=== PATIENT | female | born 1960 | race Caucasian/White ===

== ENCOUNTER 2017-10-03 09:01 | Emergency (ER) | payer OTHER ==
[~2017-10-03] VITALS: Ht 165.1 cm; Wt 45.4 kg
[~2017-10-03 09:01] MED LIST: ERYT500 PO; FLUSAL2505 INH; HYDACE5 PO; HYDR1TAB94 PO; LEVFLO500 PO; LISINOPRIL PO; LORA.5 PO; LORA1 PO; LORA2 PO; LOSA25 PO; Lidocaine-Priloc5 GM TP; METO50 PO; NAPR250 PO; NAPR500 PO; Naprosyn500 MG PO; Norco 5-325 Ta1 EACH PO; ONDA8 PO; OXYACE5T PO; Omeprazole20 M1 PO; PROAIR RESPICL90 MCG INH; PROM25 PO; TAMO10; TUDORZA PRESS400 MCG INH
[2017-10-03 09:40] LABS: BASOPHILS ABSOLUTE AUTO 0.04 K/mm3 (0.00-0.23); BASOPHILS PERCENT AUTO 0 % (0-2); EOSINOPHILS ABSOLUTE AUTO 0.36 K/mm3 (0.00-0.68); EOSINOPHILS PERCENT AUTO 4 % (0-6); Hematocrit 42.3 % (33.0-51.0); Hemoglobin 13.4 g/dL (11.5-16.0); IMMATURE GRAN ABSOLUTE AUTO 0.04 K/mm3 (0.00-0.10); IMMATURE GRAN PERCENT AUTO 0 % (0-1); LYMPHOCYTES ABSOLUTE AUTO 3.64 K/mm3 (0.84-5.20); LYMPHOCYTES PERCENT AUTO 36 % (21-46); MONOCYTES ABSOLUTE AUTO 0.61 K/mm3 (0.16-1.47); MONOCYTES PERCENT AUTO 6 % (4-13); Mean Corpuscular HGB 30.9 pg (26.0-34.0); Mean Corpuscular HGB Conc 31.7 g/dL (31.5-36.5); Mean Corpuscular Volume 98 fL (80-100); NEUTROPHILS ABSOLUTE AUTO 5.47 K/mm3 (1.96-9.15); NEUTROPHILS PERCENT AUTO 54 % (41-73); Platelet Count 247 K/mm3 (150-400); RDW Standard Deviation 58.1 fL (35.1-46.3); Red Blood Cell Count 4.34 M/mm3 (3.80-5.20); White Blood Cell Count 10.16 K/mm3 (4.00-11.30)
[2017-10-03 10:03] LABS: Troponin I <0.015 ng/mL (0.000-0.040)
[2017-10-03 10:12] LABS: Alanine Aminotransfer (ALT/SGP 48 U/L (12-78); Albumin, Blood 3.1 g/dL (3.4-5.0); Albumin/Globulin Ratio 0.7 (0.8-1.8); Alk Phos 73 U/L (50-136); Anion Gap 6 mmol/L (6-16); Aspartate Aminotrans (AST/SGOT 36 U/L (12-37); Bilirubin, Total 0.4 mg/dL (0.1-1.0); Blood Urea Nitrogen 23 mg/dL (8-24); Bun/Creatinine Ratio 25.3 (12.0-20.0); CO2, Blood 26 mmol/L (21-32); Calcium, Blood 8.9 mg/dL (8.5-10.1); Chloride, Blood 107 mmol/L (98-108); Creatinine, Blood 0.91 mg/dL (0.40-1.00); Globulin, Blood 4.2 g/dL (2.2-4.0); Glomerular Filtration Rate >60 (60-); Glucose, Blood 163 mg/dL (70-99); Potassium, Blood 3.7 mmol/L (3.5-5.5); Sodium, Blood 139 mmol/L (136-145); Total Protein, Blood 7.3 g/dL (6.4-8.2)
[2017-10-03] MEDS ORDERED: METPRE4DP PO (11:27)
[2017-10-03] MEDS ORDERED: AZIT250 PO (11:27)
== END 2017-10-03 13:24 | disposition home or self-care (01) ==
LOC: ER 09:01
PROVIDERS: Emergency Medicine
DX: J44.1 Chronic obstructive pulmonary disease with (acute) exacerbation (principal); F41.9 Anxiety disorder, unspecified; C56.9 Malignant neoplasm of unspecified ovary; Z85.3 Personal history of malignant neoplasm of breast; Z88.1 Allergy status to other antibiotic agents; Z79.899 Other long term (current) drug therapy; I10 Essential (primary) hypertension; J44.9 Chronic obstructive pulmonary disease, unspecified; F17.200 Nicotine dependence, unspecified, uncomplicated
CPT/HCPCS: 71046; 80053; 83880; 84484; 85025; 93005; 93010; 94640; 96361; 96374; 96375; 99284; J1642; J2060; J2930; J7030

== ENCOUNTER 2017-10-08 00:44 | Inpatient (IN) | payer OTHER ==
[~2017-10-08] VITALS: Ht 162.6 cm; Wt 50.4 kg
[~2017-10-08 00:44] MED LIST changes: +AZIT250 PO; +METPRE4DP PO; -OXYACE5T PO; +Percocet 10-321 EACH PO
[2017-10-08 01:08] LABS: BASOPHILS ABSOLUTE AUTO 0.12 K/mm3 (0.00-0.23); BASOPHILS PERCENT AUTO 1 % (0-2); EOSINOPHILS ABSOLUTE AUTO 0.17 K/mm3 (0.00-0.68); EOSINOPHILS PERCENT AUTO 1 % (0-6); Hematocrit 47.5 % (33.0-51.0); Hemoglobin 14.3 g/dL (11.5-16.0); IMMATURE GRAN ABSOLUTE AUTO 0.13 K/mm3 (0.00-0.10); IMMATURE GRAN PERCENT AUTO 1 % (0-1); LYMPHOCYTES ABSOLUTE AUTO 10.72 K/mm3 (0.84-5.20); LYMPHOCYTES PERCENT AUTO 54 % (21-46); MONOCYTES ABSOLUTE AUTO 1.47 K/mm3 (0.16-1.47); MONOCYTES PERCENT AUTO 7 % (4-13); Mean Corpuscular HGB 31.2 pg (26.0-34.0); Mean Corpuscular HGB Conc 30.1 g/dL (31.5-36.5); Mean Corpuscular Volume 104 fL (80-100); Mean Platelet Volume 10.4 fL (9.1-12.4); NEUTROPHILS ABSOLUTE AUTO 7.24 K/mm3 (1.96-9.15); NEUTROPHILS PERCENT AUTO 36 % (41-73); Platelet Count 211 K/mm3 (150-400); RDW Coefficient Variation 16.1 % (11.7-14.2); RDW Standard Deviation 62.4 fL (35.1-46.3); Red Blood Cell Count 4.59 M/mm3 (3.80-5.20); White Blood Cell Count 19.85 K/mm3 (4.00-11.30)
[2017-10-08 01:14] LABS: Bicarbonate Venous 22.3 mmol/L (24.0-30.0); PCO2 Venous 56.3 mmHg (38-42); PO2 Venous 50.9 mmHg (38-42); pH Blood Venous 7.27 (7.34-7.37)
[2017-10-08 01:34] LABS: Albumin, Blood 3.1 g/dL (3.4-5.0); Albumin/Globulin Ratio 0.8 (0.8-1.8); Bilirubin, Total 0.4 mg/dL (0.1-1.0); Bun/Creatinine Ratio 26.5 (12.0-20.0); Calcium, Blood 8.7 mg/dL (8.5-10.1); Creatinine, Blood 1.02 mg/dL (0.40-1.00); Globulin, Blood 3.9 g/dL (2.2-4.0); Potassium, Blood 4.1 mmol/L (3.5-5.5); Troponin I 0.044 ng/mL (0.000-0.040)
[2017-10-08] MEDS ORDERED: BUDE6HFA INH (02:37)
[2017-10-08] MEDS ORDERED: FENT50TP TOP (05:54)
[2017-10-09 04:11] LABS: BASOPHILS ABSOLUTE AUTO 0.01 K/mm3 (0.00-0.23); BASOPHILS PERCENT AUTO 0 % (0-2); EOSINOPHILS PERCENT AUTO 0 % (0-6); Hematocrit 39.7 % (33.0-51.0); Hemoglobin 12.6 g/dL (11.5-16.0); IMMATURE GRAN ABSOLUTE AUTO 0.05 K/mm3 (0.00-0.10); IMMATURE GRAN PERCENT AUTO 0 % (0-1); LYMPHOCYTES ABSOLUTE AUTO 0.68 K/mm3 (0.84-5.20); LYMPHOCYTES PERCENT AUTO 6 % (21-46); MONOCYTES ABSOLUTE AUTO 0.37 K/mm3 (0.16-1.47); MONOCYTES PERCENT AUTO 3 % (4-13); Mean Corpuscular HGB 30.8 pg (26.0-34.0); Mean Corpuscular HGB Conc 31.7 g/dL (31.5-36.5); Mean Platelet Volume 10.7 fL (9.1-12.4); NEUTROPHILS ABSOLUTE AUTO 10.99 K/mm3 (1.96-9.15); NEUTROPHILS PERCENT AUTO 91 % (41-73); Platelet Count 209 K/mm3 (150-400); RDW Standard Deviation 57.5 fL (35.1-46.3); Red Blood Cell Count 4.09 M/mm3 (3.80-5.20)
[2017-10-09 04:12] LABS: Mean Corpuscular Volume 97 fL (80-100)
[2017-10-09 04:29] LABS: Anion Gap 7 mmol/L (6-16); Blood Urea Nitrogen 32 mg/dL (8-24); Bun/Creatinine Ratio 33.1 (12.0-20.0); CO2, Blood 31 mmol/L (21-32); Calcium, Blood 9.3 mg/dL (8.5-10.1); Chloride, Blood 102 mmol/L (98-108); Creatinine, Blood 0.97 mg/dL (0.40-1.00); Glomerular Filtration Rate >60 (60-); Glucose, Blood 181 mg/dL (70-99); Sodium, Blood 140 mmol/L (136-145)
[2017-10-10 04:14] LABS: BASOPHILS ABSOLUTE AUTO 0.01 K/mm3 (0.00-0.23); BASOPHILS PERCENT AUTO 0 % (0-2); EOSINOPHILS PERCENT AUTO 0 % (0-6); Hematocrit 39.4 % (33.0-51.0); Hemoglobin 12.6 g/dL (11.5-16.0); IMMATURE GRAN ABSOLUTE AUTO 0.07 K/mm3 (0.00-0.10); IMMATURE GRAN PERCENT AUTO 1 % (0-1); LYMPHOCYTES ABSOLUTE AUTO 0.73 K/mm3 (0.84-5.20); LYMPHOCYTES PERCENT AUTO 6 % (21-46); MONOCYTES ABSOLUTE AUTO 0.41 K/mm3 (0.16-1.47); MONOCYTES PERCENT AUTO 3 % (4-13); Mean Corpuscular HGB 30.8 pg (26.0-34.0); Mean Corpuscular Volume 96 fL (80-100); NEUTROPHILS ABSOLUTE AUTO 11.91 K/mm3 (1.96-9.15); NEUTROPHILS PERCENT AUTO 91 % (41-73); Platelet Count 219 K/mm3 (150-400); RDW Coefficient Variation 15.8 % (11.7-14.2); RDW Standard Deviation 55.9 fL (35.1-46.3); Red Blood Cell Count 4.09 M/mm3 (3.80-5.20); White Blood Cell Count 13.13 K/mm3 (4.00-11.30)
[2017-10-10 04:31] LABS: Anion Gap 6 mmol/L (6-16); Blood Urea Nitrogen 32 mg/dL (8-24); Bun/Creatinine Ratio 37.9 (12.0-20.0); CO2, Blood 31 mmol/L (21-32); Calcium, Blood 8.9 mg/dL (8.5-10.1); Chloride, Blood 102 mmol/L (98-108); Creatinine, Blood 0.84 mg/dL (0.40-1.00); Glomerular Filtration Rate >60 (60-); Glucose, Blood 127 mg/dL (70-99); Potassium, Blood 4.2 mmol/L (3.5-5.5); Sodium, Blood 139 mmol/L (136-145)
[2017-10-10] MEDS ORDERED: FURO40 PO (11:51)
[2017-10-10] MEDS ORDERED: PRED20 PO (11:51)
[2017-10-10] MEDS ORDERED: Aspirin EC81 MG PO (11:52)
[2017-10-10] MEDS ORDERED: ALBU3IS INH (11:52)
== END 2017-10-10 14:53 | disposition home or self-care (01) | DRG 280 ==
LOC: ER 00:44 → PCU 01:47
PROVIDERS: Emergency Medicine; Internal Medicine
DX: I13.0 Hypertensive heart and chronic kidney disease with heart failure and stage 1 through stage 4 chronic kidney disease, or unspecified chronic kidney disease (principal); I21.A1 Myocardial infarction type 2; I50.41 Acute combined systolic (congestive) and diastolic (congestive) heart failure; E43 Unspecified severe protein-calorie malnutrition; J96.21 Acute and chronic respiratory failure with hypoxia; J96.22 Acute and chronic respiratory failure with hypercapnia; Z68.1 Body mass index [BMI] 19.9 or less, adult; C56.9 Malignant neoplasm of unspecified ovary; C78.00 Secondary malignant neoplasm of unspecified lung; N18.1 Chronic kidney disease, stage 1; F17.210 Nicotine dependence, cigarettes, uncomplicated; D72.829 Elevated white blood cell count, unspecified; T38.0X5A Adverse effect of glucocorticoids and synthetic analogues, initial encounter; K76.1 Chronic passive congestion of liver; J44.9 Chronic obstructive pulmonary disease, unspecified
CPT/HCPCS: 36415; 71045; 80048; 80053; 82803; 83880; 84484; 85025; 93005; 93010; 93306; 94640; 94644; 94660; 94760; 94761; 99285; J1650; J1940; J2930

== ENCOUNTER 2018-06-15 23:40 | Inpatient (IN) | payer OTHER ==
[~2018-06-15] VITALS: Ht 162.6 cm; Wt 46.6 kg
[~2018-06-15 23:40] MED LIST changes: +ALBU3IS INH; +Aspirin EC81 MG PO; +BUDE6HFA INH; +FENT50TP TOP; +FURO40 PO; +ONDA4ODT MM; -ONDA8 PO; +PRED20 PO
[2018-06-16 00:04] LABS: PCO2 Arterial 82.9 mmHg (35-45); PO2 Arterial 438 mmHg (80-100); pH Blood Arterial 7.11 (7.35-7.45)
[2018-06-16 00:41] LABS: Calcium, Ionized (POC) 1.05 mmol/L (1.10-1.46); Chloride (POC) 100 mmol/L (98-108); Creatinine (POC) 1.1 mg/dL (0.6-1.0); Glucose (ISTAT POC) 366 mg/dL (70-99); Hemoglobin (POC) 15.6 g/dL (12.0-16.0); Potassium (POC) 3.9 mmol/L (3.5-5.5); Sodium (POC) 137 mmol/L (135-148); Total CO2 (POC) 26 mmol/L (21-32)
[2018-06-16 00:55] LABS: Hematocrit 46.4 % (33.0-51.0); Hemoglobin 14.3 g/dL (11.5-16.0); Mean Corpuscular HGB 30.6 pg (26.0-34.0); Mean Corpuscular HGB Conc 30.8 g/dL (31.5-36.5); Mean Corpuscular Volume 99 fL (80-100); Mean Platelet Volume 10.5 fL (9.1-12.4); Platelet Count 226 K/mm3 (150-400); RDW Coefficient Variation 13.8 % (11.7-14.2); RDW Standard Deviation 50.3 fL (35.1-46.3); Red Blood Cell Count 4.67 M/mm3 (3.80-5.20); White Blood Cell Count 19.31 K/mm3 (4.00-11.30)
[2018-06-16 01:24] LABS: Alanine Aminotransfer (ALT/SGP 23 U/L (12-78); Albumin, Blood 0.7 g/dL (3.4-5.0); Albumin/Globulin Ratio 0.6 (0.8-1.8); Alk Phos 30 U/L (50-136); Anion Gap 7 mmol/L (6-16); Aspartate Aminotrans (AST/SGOT 23 U/L (12-37); Bilirubin, Total <0.1 mg/dL (0.1-1.0); Blood Urea Nitrogen 11 mg/dL (8-24); Bun/Creatinine Ratio 25.2 (12.0-20.0); CO2, Blood 15 mmol/L (21-32); Chloride, Blood 131 mmol/L (98-108); Creatinine, Blood 0.44 mg/dL (0.40-1.00); Globulin, Blood 1.1 g/dL (2.2-4.0); Glomerular Filtration Rate >60 (60-); Glucose, Blood 138 mg/dL (70-99); Sodium, Blood 153 mmol/L (136-145); Total Protein, Blood 1.8 g/dL (6.4-8.2)
[2018-06-16 01:28] LABS: BAND PERCENT MAN 4 % (0-8); BASOPHILS ABSOLUTE MAN 0.19 K/mm3 (0.00-0.23); BASOPHILS PERCENT MAN 1 % (0-2); EOSINOPHILS ABSOLUTE MAN 0.38 K/mm3 (0.00-0.68); EOSINOPHILS PERCENT MAN 2 % (0-6); LYMPHOCYTES ABSOLUTE MAN 4.82 K/mm3 (0.84-5.20); LYMPHOCYTES PERCENT MAN 25 % (21-46); MONOCYTES ABSOLUTE MAN 0.57 K/mm3 (0.16-1.47); MONOCYTES PERCENT MAN 3 % (4-13); NEUTROPHILS ABSOLUTE MAN 13.32 K/mm3 (1.96-9.15); SEG NEUTROPHILS PERCENT MAN 65 % (41-73); TOTAL CELLS COUNTED 100
[2018-06-16 01:29] LABS: Calcium, Blood <5.0 mg/dL (8.5-10.1)
[2018-06-16 01:42] LABS: PCO2 Arterial 49.1 mmHg (35-45); PO2 Arterial 58.2 mmHg (80-100); pH Blood Arterial 7.32 (7.35-7.45)
[2018-06-16 02:54] LABS: Adenovirus Not Detected (NOT DETECT); Bordetella pertussis Not Detected (NOT DETECT); Chlamydophila pneumoniae Not Detected (NOT DETECT); Coronavirus 229E Not Detected (NOT DETECT); Coronavirus HKU1 Not Detected (NOT DETECT); Coronavirus NL63 Not Detected (NOT DETECT); Human Metapneumovirus Not Detected (NOT DETECT); Human Rhinovirus/Enterovirus Not Detected (NOT DETECT); Influenza A/2009-H1 Not Detected (NOT DETECT); Influenza A/H1 Not Detected (NOT DETECT); Influenza A/H3 Not Detected (NOT DETECT); Influenza B Not Detected (NOT DETECT); Mycoplasma pneumoniae Not Detected (NOT DETECT); Parainfluenza Virus 1 Not Detected (NOT DETECT); Parainfluenza Virus 2 Not Detected (NOT DETECT); Parainfluenza Virus 3 Not Detected (NOT DETECT); Parainfluenza Virus 4 Not Detected (NOT DETECT); Respiratory Syncytial Virus Not Detected (NOT DETECT)
[2018-06-16 04:35] LABS: Source, Urine Catheter
[2018-06-16 04:38] LABS: Appearance, Urine Hazy (Clear); Bilirubin, Urine Neg (Neg); Blood, Urine 2+ (Neg); Color, Urine Yellow (P-Yellow); Glucose Qualitative, Urine 3+ (Neg); Ketones, Urine Neg (Neg); Leukocyte Esterase, Urine Neg (Neg); Nitrite, Urine Neg (Neg); Protein, Urine 3+ (Neg); Urobilinogen, Urine NORM (Normal); pH, Urine 6.5 (5.0-8.0)
[2018-06-16 04:48] LABS: Coronavirus OC43 Detected (NOT DETECT); Influenza A Not Detected (NOT DETECT)
[2018-06-16 04:52] LABS: Amorphous Mod ({null, 0-Heavy}); Bacteria Mod /hpf; Squamous Epithelial Cells Mod /hpf (Few)
[2018-06-16 08:46] LABS: BASOPHILS ABSOLUTE AUTO 0.01 K/mm3 (0.00-0.23); BASOPHILS PERCENT AUTO 0 % (0-2); EOSINOPHILS PERCENT AUTO 0 % (0-6); Hematocrit 45.1 % (33.0-51.0); Hemoglobin 14.3 g/dL (11.5-16.0); IMMATURE GRAN ABSOLUTE AUTO 0.04 K/mm3 (0.00-0.10); IMMATURE GRAN PERCENT AUTO 0 % (0-1); LYMPHOCYTES ABSOLUTE AUTO 0.24 K/mm3 (0.84-5.20); LYMPHOCYTES PERCENT AUTO 2 % (21-46); MONOCYTES ABSOLUTE AUTO 0.14 K/mm3 (0.16-1.47); MONOCYTES PERCENT AUTO 1 % (4-13); Mean Corpuscular HGB Conc 31.7 g/dL (31.5-36.5); Mean Platelet Volume 10.5 fL (9.1-12.4); NEUTROPHILS ABSOLUTE AUTO 10.63 K/mm3 (1.96-9.15); NEUTROPHILS PERCENT AUTO 96 % (41-73); Platelet Count 167 K/mm3 (150-400); RDW Coefficient Variation 13.9 % (11.7-14.2); RDW Standard Deviation 48.6 fL (35.1-46.3); Red Blood Cell Count 4.76 M/mm3 (3.80-5.20); White Blood Cell Count 11.06 K/mm3 (4.00-11.30)
[2018-06-16 08:54] LABS: Mean Corpuscular Volume 95 fL (80-100)
[2018-06-16 09:07] LABS: Alanine Aminotransfer (ALT/SGP 67 U/L (12-78); Alk Phos 107 U/L (50-136); Aspartate Aminotrans (AST/SGOT 54 U/L (12-37); Bilirubin, Total 0.3 mg/dL (0.1-1.0); Blood Urea Nitrogen 21 mg/dL (8-24); Bun/Creatinine Ratio 21.3 (12.0-20.0); CO2, Blood 24 mmol/L (21-32); Chloride, Blood 104 mmol/L (98-108); Creatinine, Blood 0.99 mg/dL (0.40-1.00); Glomerular Filtration Rate >60 (60-); Glucose, Blood 212 mg/dL (70-99); Potassium, Blood 3.3 mmol/L (3.5-5.5)
[2018-06-16 09:10] LABS: Albumin, Blood 3.1 g/dL (3.4-5.0); Albumin/Globulin Ratio 0.7 (0.8-1.8); Anion Gap 12 mmol/L (6-16); Calcium, Blood 8.6 mg/dL (8.5-10.1); Globulin, Blood 4.2 g/dL (2.2-4.0); Sodium, Blood 140 mmol/L (136-145); Total Protein, Blood 7.3 g/dL (6.4-8.2)
[2018-06-16 14:38] LABS: Anion Gap 10 mmol/L (6-16); Blood Urea Nitrogen 21 mg/dL (8-24); Bun/Creatinine Ratio 22.2 (12.0-20.0); CO2, Blood 25 mmol/L (21-32); Calcium, Blood 8.9 mg/dL (8.5-10.1); Chloride, Blood 104 mmol/L (98-108); Creatinine, Blood 0.94 mg/dL (0.40-1.00); Glomerular Filtration Rate >60 (60-); Glucose, Blood 282 mg/dL (70-99); Potassium, Blood 3.6 mmol/L (3.5-5.5); Sodium, Blood 139 mmol/L (136-145)
[2018-06-17 03:43] LABS: BASOPHILS ABSOLUTE AUTO 0.02 K/mm3 (0.00-0.23); BASOPHILS PERCENT AUTO 0 % (0-2); EOSINOPHILS PERCENT AUTO 0 % (0-6); Hematocrit 37.8 % (33.0-51.0); Hemoglobin 12.4 g/dL (11.5-16.0); IMMATURE GRAN ABSOLUTE AUTO 0.22 K/mm3 (0.00-0.10); IMMATURE GRAN PERCENT AUTO 1 % (0-1); LYMPHOCYTES PERCENT AUTO 2 % (21-46); MONOCYTES ABSOLUTE AUTO 0.83 K/mm3 (0.16-1.47); MONOCYTES PERCENT AUTO 4 % (4-13); Mean Corpuscular HGB 31.2 pg (26.0-34.0); Mean Corpuscular HGB Conc 32.8 g/dL (31.5-36.5); Mean Corpuscular Volume 95 fL (80-100); Mean Platelet Volume 10.8 fL (9.1-12.4); NEUTROPHILS ABSOLUTE AUTO 20.86 K/mm3 (1.96-9.15); NEUTROPHILS PERCENT AUTO 93 % (41-73); Platelet Count 172 K/mm3 (150-400); RDW Coefficient Variation 14.2 % (11.7-14.2); RDW Standard Deviation 49.3 fL (35.1-46.3); Red Blood Cell Count 3.98 M/mm3 (3.80-5.20); White Blood Cell Count 22.33 K/mm3 (4.00-11.30)
[2018-06-17 04:03] LABS: Alanine Aminotransfer (ALT/SGP 43 U/L (12-78); Albumin, Blood 2.7 g/dL (3.4-5.0); Albumin/Globulin Ratio 0.8 (0.8-1.8); Alk Phos 77 U/L (50-136); Anion Gap 7 mmol/L (6-16); Aspartate Aminotrans (AST/SGOT 20 U/L (12-37); Bilirubin, Total 0.3 mg/dL (0.1-1.0); Blood Urea Nitrogen 18 mg/dL (8-24); CO2, Blood 29 mmol/L (21-32); Calcium, Blood 8.2 mg/dL (8.5-10.1); Chloride, Blood 103 mmol/L (98-108); Creatinine, Blood 0.82 mg/dL (0.40-1.00); Globulin, Blood 3.6 g/dL (2.2-4.0); Glomerular Filtration Rate >60 (60-); Glucose, Blood 161 mg/dL (70-99); Magnesium, Blood 1.9 mg/dL (1.6-2.4); Phosphorus, Blood 2.8 mg/dL (2.5-4.9); Sodium, Blood 139 mmol/L (136-145); Total Protein, Blood 6.3 g/dL (6.4-8.2)
[2018-06-17 05:05] LABS: PCO2 Arterial 38.5 mmHg (35-45); PO2 Arterial 66.3 mmHg (80-100); pH Blood Arterial 7.45 (7.35-7.45)
[2018-06-18 03:42] LABS: BASOPHILS ABSOLUTE AUTO 0.03 K/mm3 (0.00-0.23); BASOPHILS PERCENT AUTO 0 % (0-2); EOSINOPHILS PERCENT AUTO 0 % (0-6); Hemoglobin 11.8 g/dL (11.5-16.0); IMMATURE GRAN PERCENT AUTO 1 % (0-1); LYMPHOCYTES ABSOLUTE AUTO 0.32 K/mm3 (0.84-5.20); LYMPHOCYTES PERCENT AUTO 2 % (21-46); MONOCYTES ABSOLUTE AUTO 0.47 K/mm3 (0.16-1.47); MONOCYTES PERCENT AUTO 2 % (4-13); Mean Corpuscular HGB 31.3 pg (26.0-34.0); Mean Corpuscular HGB Conc 31.9 g/dL (31.5-36.5); Mean Platelet Volume 11.1 fL (9.1-12.4); NEUTROPHILS ABSOLUTE AUTO 19.91 K/mm3 (1.96-9.15); NEUTROPHILS PERCENT AUTO 95 % (41-73); Platelet Count 184 K/mm3 (150-400); RDW Coefficient Variation 14.6 % (11.7-14.2); RDW Standard Deviation 52.8 fL (35.1-46.3); Red Blood Cell Count 3.77 M/mm3 (3.80-5.20); White Blood Cell Count 21.03 K/mm3 (4.00-11.30)
[2018-06-18 03:43] LABS: Mean Corpuscular Volume 98 fL (80-100)
[2018-06-18 04:03] LABS: Anion Gap 5 mmol/L (6-16); Blood Urea Nitrogen 24 mg/dL (8-24); Bun/Creatinine Ratio 32.4 (12.0-20.0); CO2, Blood 28 mmol/L (21-32); Calcium, Blood 8.5 mg/dL (8.5-10.1); Chloride, Blood 107 mmol/L (98-108); Creatinine, Blood 0.74 mg/dL (0.40-1.00); Glomerular Filtration Rate >60 (60-); Glucose, Blood 130 mg/dL (70-99); Phosphorus, Blood 2.3 mg/dL (2.5-4.9); Potassium, Blood 4.6 mmol/L (3.5-5.5); Sodium, Blood 140 mmol/L (136-145)
[2018-06-18 05:17] LABS: PCO2 Arterial 47.1 mmHg (35-45); PO2 Arterial 65.9 mmHg (80-100); pH Blood Arterial 7.39 (7.35-7.45)
[2018-06-19 03:49] LABS: BASOPHILS ABSOLUTE AUTO 0.02 K/mm3 (0.00-0.23); BASOPHILS PERCENT AUTO 0 % (0-2); EOSINOPHILS PERCENT AUTO 0 % (0-6); Hematocrit 38.2 % (33.0-51.0); Hemoglobin 11.6 g/dL (11.5-16.0); IMMATURE GRAN PERCENT AUTO 1 % (0-1); LYMPHOCYTES ABSOLUTE AUTO 0.41 K/mm3 (0.84-5.20); LYMPHOCYTES PERCENT AUTO 3 % (21-46); MONOCYTES ABSOLUTE AUTO 0.53 K/mm3 (0.16-1.47); MONOCYTES PERCENT AUTO 3 % (4-13); Mean Corpuscular HGB 30.1 pg (26.0-34.0); Mean Corpuscular HGB Conc 30.4 g/dL (31.5-36.5); Mean Corpuscular Volume 99 fL (80-100); Mean Platelet Volume 11.1 fL (9.1-12.4); NEUTROPHILS ABSOLUTE AUTO 15.57 K/mm3 (1.96-9.15); NEUTROPHILS PERCENT AUTO 93 % (41-73); Platelet Count 184 K/mm3 (150-400); RDW Coefficient Variation 14.6 % (11.7-14.2); RDW Standard Deviation 53.5 fL (35.1-46.3); Red Blood Cell Count 3.85 M/mm3 (3.80-5.20); White Blood Cell Count 16.73 K/mm3 (4.00-11.30)
[2018-06-19 04:07] LABS: Alanine Aminotransfer (ALT/SGP 78 U/L (12-78); Albumin, Blood 2.6 g/dL (3.4-5.0); Albumin/Globulin Ratio 0.7 (0.8-1.8); Alk Phos 60 U/L (50-136); Anion Gap 4 mmol/L (6-16); Aspartate Aminotrans (AST/SGOT 55 U/L (12-37); Bilirubin, Total 0.3 mg/dL (0.1-1.0); Blood Urea Nitrogen 30 mg/dL (8-24); Bun/Creatinine Ratio 38.5 (12.0-20.0); CO2, Blood 33 mmol/L (21-32); Calcium, Blood 8.6 mg/dL (8.5-10.1); Chloride, Blood 103 mmol/L (98-108); Creatinine, Blood 0.78 mg/dL (0.40-1.00); Globulin, Blood 3.6 g/dL (2.2-4.0); Glomerular Filtration Rate >60 (60-); Glucose, Blood 127 mg/dL (70-99); Magnesium, Blood 1.9 mg/dL (1.6-2.4); Phosphorus, Blood 2.5 mg/dL (2.5-4.9); Potassium, Blood 4.8 mmol/L (3.5-5.5); Sodium, Blood 140 mmol/L (136-145); Total Protein, Blood 6.2 g/dL (6.4-8.2)
[2018-06-19] MEDS ORDERED: Potassium Chlo10 ME1 PO (10:48)
[2018-06-19] MEDS ORDERED: LOSARTAN-HCTZ1 EACH PO (10:50)
[2018-06-20 03:56] LABS: BASOPHILS ABSOLUTE AUTO 0.02 K/mm3 (0.00-0.23); BASOPHILS PERCENT AUTO 0 % (0-2); EOSINOPHILS PERCENT AUTO 0 % (0-6); Hemoglobin 11.5 g/dL (11.5-16.0); IMMATURE GRAN ABSOLUTE AUTO 0.13 K/mm3 (0.00-0.10); IMMATURE GRAN PERCENT AUTO 1 % (0-1); LYMPHOCYTES ABSOLUTE AUTO 0.59 K/mm3 (0.84-5.20); LYMPHOCYTES PERCENT AUTO 6 % (21-46); MONOCYTES ABSOLUTE AUTO 0.42 K/mm3 (0.16-1.47); MONOCYTES PERCENT AUTO 4 % (4-13); Mean Corpuscular HGB 30.7 pg (26.0-34.0); Mean Corpuscular HGB Conc 30.3 g/dL (31.5-36.5); Mean Corpuscular Volume 102 fL (80-100); Mean Platelet Volume 10.9 fL (9.1-12.4); NEUTROPHILS ABSOLUTE AUTO 8.42 K/mm3 (1.96-9.15); NEUTROPHILS PERCENT AUTO 88 % (41-73); Platelet Count 171 K/mm3 (150-400); RDW Coefficient Variation 14.4 % (11.7-14.2); RDW Standard Deviation 54.1 fL (35.1-46.3); Red Blood Cell Count 3.74 M/mm3 (3.80-5.20); White Blood Cell Count 9.58 K/mm3 (4.00-11.30)
[2018-06-20 04:15] LABS: Alanine Aminotransfer (ALT/SGP 120 U/L (12-78); Albumin, Blood 2.6 g/dL (3.4-5.0); Albumin/Globulin Ratio 0.8 (0.8-1.8); Alk Phos 59 U/L (50-136); Anion Gap 2 mmol/L (6-16); Aspartate Aminotrans (AST/SGOT 47 U/L (12-37); Bilirubin, Total 0.3 mg/dL (0.1-1.0); Blood Urea Nitrogen 24 mg/dL (8-24); Bun/Creatinine Ratio 34.2 (12.0-20.0); CO2, Blood 37 mmol/L (21-32); Calcium, Blood 8.6 mg/dL (8.5-10.1); Chloride, Blood 102 mmol/L (98-108); Globulin, Blood 3.1 g/dL (2.2-4.0); Glomerular Filtration Rate >60 (60-); Glucose, Blood 131 mg/dL (70-99); Potassium, Blood 4.9 mmol/L (3.5-5.5); Sodium, Blood 141 mmol/L (136-145); Total Protein, Blood 5.7 g/dL (6.4-8.2)
[2018-06-22 05:23] LABS: BASOPHILS ABSOLUTE AUTO 0.04 K/mm3 (0.00-0.23); BASOPHILS PERCENT AUTO 0 % (0-2); EOSINOPHILS PERCENT AUTO 0 % (0-6); Hematocrit 39.4 % (33.0-51.0); Hemoglobin 11.8 g/dL (11.5-16.0); IMMATURE GRAN ABSOLUTE AUTO 0.38 K/mm3 (0.00-0.10); IMMATURE GRAN PERCENT AUTO 3 % (0-1); LYMPHOCYTES ABSOLUTE AUTO 1.48 K/mm3 (0.84-5.20); LYMPHOCYTES PERCENT AUTO 13 % (21-46); MONOCYTES PERCENT AUTO 8 % (4-13); Mean Corpuscular HGB 29.9 pg (26.0-34.0); Mean Corpuscular HGB Conc 29.9 g/dL (31.5-36.5); Mean Corpuscular Volume 100 fL (80-100); Mean Platelet Volume 10.8 fL (9.1-12.4); NEUTROPHILS ABSOLUTE AUTO 8.26 K/mm3 (1.96-9.15); NEUTROPHILS PERCENT AUTO 75 % (41-73); Platelet Count 190 K/mm3 (150-400); RDW Coefficient Variation 13.9 % (11.7-14.2); RDW Standard Deviation 50.7 fL (35.1-46.3); Red Blood Cell Count 3.95 M/mm3 (3.80-5.20); White Blood Cell Count 11.06 K/mm3 (4.00-11.30)
[2018-06-22 05:45] LABS: Anion Gap 2 mmol/L (6-16); Blood Urea Nitrogen 24 mg/dL (8-24); Bun/Creatinine Ratio 33.5 (12.0-20.0); CO2, Blood 38 mmol/L (21-32); Calcium, Blood 8.3 mg/dL (8.5-10.1); Chloride, Blood 101 mmol/L (98-108); Creatinine, Blood 0.72 mg/dL (0.40-1.00); Glomerular Filtration Rate >60 (60-); Glucose, Blood 116 mg/dL (70-99); Potassium, Blood 4.6 mmol/L (3.5-5.5); Sodium, Blood 141 mmol/L (136-145)
[2018-06-23] MEDS ORDERED: TIOT18 INH (11:54)
[2018-06-23] MEDS ORDERED: NYST100000 PO (11:54)
[2018-06-23] MEDS ORDERED: PRED20 PO (11:54)
[2018-06-24] MEDS ORDERED: NICO21TP TOP (19:30)
[2018-06-24] MEDS ORDERED: Mucus Relief400 MG PO (19:32)
== END 2018-06-23 17:05 | disposition home health service (06) | DRG 208 ==
LOC: ER 23:40 → ICUW 06-16 01:18 → MEDS 06-21 17:11 → ENPENDDIS 06-23 10:00 → MEDS 06-23 17:05
PROVIDERS: Emergency Medicine; Internal Medicine; Internal Medicine Critical Care Medicine; ADMIT Hospitalist
PROC: 5A09357 Assistance with Respiratory Ventilation, Less than 24 Consecutive Hours, Continuous Positive Airway Pressure (ICD-10-PCS; principal; 2018-06-16)
PROC: 5A1945Z Respiratory Ventilation, 24-96 Consecutive Hours (ICD-10-PCS; 2018-06-16)
PROC: 0BH17EZ Insertion of Endotracheal Airway into Trachea, Via Natural or Artificial Opening (ICD-10-PCS; 2018-06-16)
DX: J15.6 Pneumonia due to other Gram-negative bacteria (principal); J96.01 Acute respiratory failure with hypoxia; E43 Unspecified severe protein-calorie malnutrition; J96.02 Acute respiratory failure with hypercapnia; I50.32 Chronic diastolic (congestive) heart failure; J44.1 Chronic obstructive pulmonary disease with (acute) exacerbation; I13.0 Hypertensive heart and chronic kidney disease with heart failure and stage 1 through stage 4 chronic kidney disease, or unspecified chronic kidney disease; E87.0 Hyperosmolality and hypernatremia; C56.9 Malignant neoplasm of unspecified ovary; B37.0 Candidal stomatitis; R64 Cachexia; J84.9 Interstitial pulmonary disease, unspecified; F17.200 Nicotine dependence, unspecified, uncomplicated; N18.1 Chronic kidney disease, stage 1; E87.6 Hypokalemia; E83.51 Hypocalcemia; E88.09 Other disorders of plasma-protein metabolism, not elsewhere classified; E77.8 Other disorders of glycoprotein metabolism; Z79.82 Long term (current) use of aspirin; Z88.1 Allergy status to other antibiotic agents; F41.9 Anxiety disorder, unspecified; Z68.22 Body mass index [BMI] 22.0-22.9, adult
CPT/HCPCS: 31500; 31720; 36415; 36600; 51702; 71045; 71260; 80047; 80048; 80053; 81001; 82803; 82947; 83735; 84100; 85014; 85025; 87070; 87077; 87086; 87185; 87205; 87486; 87581; 87633; 87798; 90686; 93005; 93010; 94002; 94003; 94640; 94644; 94660; 94667; 94668; 94760; 94761; 96365; 96375; 97110; 97116; 97163; 97165; 97530; 99291-25; C9113; G0008; G8978; G8979; J0330; J0456; J0610; J1642; J1650; J1815; J1940; J1956; J2060; J2250; J2405; J2920; J2930; J3010; J3475; J3480; J7030; J7040; J7042; J7050; J7060; J7626; Q9967

== ENCOUNTER 2018-06-24 14:46 | Inpatient (IN) | payer OTHER ==
[~2018-06-24] VITALS: Ht 167.6 cm; Wt 52.3 kg
[~2018-06-24 14:46] MED LIST changes: +LOSARTAN-HCTZ1 EACH PO; +NYST100000 PO; +Potassium Chlo10 ME1 PO; +TIOT18 INH
[2018-06-24 15:15] LABS: BASOPHILS ABSOLUTE AUTO 0.04 K/mm3 (0.00-0.23); BASOPHILS PERCENT AUTO 0 % (0-2); EOSINOPHILS ABSOLUTE AUTO 0.11 K/mm3 (0.00-0.68); EOSINOPHILS PERCENT AUTO 1 % (0-6); Hematocrit 41.4 % (33.0-51.0); Hemoglobin 12.6 g/dL (11.5-16.0); IMMATURE GRAN ABSOLUTE AUTO 0.56 K/mm3 (0.00-0.10); IMMATURE GRAN PERCENT AUTO 5 % (0-1); LYMPHOCYTES ABSOLUTE AUTO 2.64 K/mm3 (0.84-5.20); LYMPHOCYTES PERCENT AUTO 24 % (21-46); MONOCYTES ABSOLUTE AUTO 0.86 K/mm3 (0.16-1.47); MONOCYTES PERCENT AUTO 8 % (4-13); Mean Corpuscular HGB 30.8 pg (26.0-34.0); Mean Corpuscular HGB Conc 30.4 g/dL (31.5-36.5); Mean Corpuscular Volume 101 fL (80-100); Mean Platelet Volume 9.6 fL (9.1-12.4); NEUTROPHILS ABSOLUTE AUTO 7.01 K/mm3 (1.96-9.15); NEUTROPHILS PERCENT AUTO 62 % (41-73); Platelet Count 217 K/mm3 (150-400); RDW Coefficient Variation 14.4 % (11.7-14.2); RDW Standard Deviation 53.9 fL (35.1-46.3); Red Blood Cell Count 4.09 M/mm3 (3.80-5.20); White Blood Cell Count 11.22 K/mm3 (4.00-11.30)
[2018-06-24 15:19] LABS: PO2 Arterial 287 mmHg (80-100); pH Blood Arterial 7.43 (7.35-7.45)
[2018-06-24 15:34] LABS: Alanine Aminotransfer (ALT/SGP 115 U/L (12-78); Albumin, Blood 2.7 g/dL (3.4-5.0); Albumin/Globulin Ratio 0.9 (0.8-1.8); Alk Phos 63 U/L (50-136); Anion Gap 8 mmol/L (6-16); Aspartate Aminotrans (AST/SGOT 112 U/L (12-37); Bilirubin, Total 0.3 mg/dL (0.1-1.0); Blood Urea Nitrogen 22 mg/dL (8-24); Bun/Creatinine Ratio 30.3 (12.0-20.0); CO2, Blood 36 mmol/L (21-32); Calcium, Blood 7.8 mg/dL (8.5-10.1); Chloride, Blood 100 mmol/L (98-108); Creatinine, Blood 0.73 mg/dL (0.40-1.00); Globulin, Blood 3.1 g/dL (2.2-4.0); Glomerular Filtration Rate >60 (60-); Glucose, Blood 107 mg/dL (70-99); Magnesium, Blood 1.8 mg/dL (1.6-2.4); Potassium, Blood 3.4 mmol/L (3.5-5.5); Sodium, Blood 144 mmol/L (136-145); Total Protein, Blood 5.8 g/dL (6.4-8.2); Troponin I 0.051 ng/mL (0.000-0.040)
[2018-06-24 15:43] LABS: Source, Urine Catheter
[2018-06-24 15:46] LABS: Appearance, Urine Cloudy (Clear); Bilirubin, Urine Neg (Neg); Blood, Urine 1+ (Neg); Color, Urine Yellow (P-Yellow); Glucose Qualitative, Urine Neg (Neg); Ketones, Urine Neg (Neg); Leukocyte Esterase, Urine Neg (Neg); Nitrite, Urine Neg (Neg); Protein, Urine 2+ (Neg); Urobilinogen, Urine NORM (Normal)
[2018-06-24 15:57] LABS: Bacteria Few /hpf; Red Blood Cells, Urine 0-2 /hpf (0-2); Squamous Epithelial Cells Rare /hpf (Few); White Blood Cells, Urine Not Seen /hpf (0-5)
--- NOTE | 2018-06-24 16:00 | NUR ---
INITIAL ASSESSMENT PATIENT ARRIVED TO ROOM AT 1545. PATIENT INTUBATED AND ON SEDATION- PROPOFOL AT 25 MCG/ KG/ MINUTE. PATIENT IS RESPONDING TO VERBAL STIMULI AND ANSWERING QUESTIONS WITH NODDING AND SHAKING OF HEAD. PATIENT HAS CHRONIC BACK AND ABDOMINAL PAIN AND SIGNALS THAT SHE IS IN PAIN AT THIS TIME- WILL OBTAIN PAIN MEDICATIONS. PATIENT SATTING WELL ON VENT SETTINGS OF AC 14, PEEP 5, TV 450, 40% FIO2. UPPER LOBES CLEAR, LOWER LOBES DIMINISHED, LLL COARSE. THICK, YELLOW PHLEGM BEING SUCTIONED FROM ETT. PATIENT IN SR, HR IN THE 90S. BP STABLE. OG IN PLACE- CLAMPED. CARBAJAL DRAINING YELLOW URINE. NO WOUNDS NOTED. PATIENT NOT PLACED IN RESTRAINTS IS COOPERATIVE AND AGREES NOT TO PULL AT LINES, CORDS, OR MECHANICAL VENTILATION. PATIENT ORIENTED TO ROOM AND CALL SYSTEM. BED LOW, CALL LIGHT IN REACH. WILL CONTINUE TO MONITOR PATIENT FREQUENTLY THROUGHOUT SHIFT.
--- NOTE | 2018-06-24 16:28 | NUR ---
DR. CARNES IN TO SEE PATIENT.
[2018-06-24 17:15] LABS: Calcium, Ionized (POC) 1.05 mmol/L (1.10-1.46); Chloride (POC) 95 mmol/L (98-108); Creatinine (POC) 0.8 mg/dL (0.6-1.0); Glucose (ISTAT POC) 111 mg/dL (70-99); Hemoglobin (POC) 13.6 g/dL (12.0-16.0); Potassium (POC) 3.3 mmol/L (3.5-5.5); Sodium (POC) 142 mmol/L (135-148); Total CO2 (POC) 36 mmol/L (21-32)
--- NOTE | 2018-06-24 19:18 | NUR ---
SHIFT SUMMARY PATIENT GIVEN PRN PAIN MEDICATION AND PRN ANTIANXIETY MED TO HELP KEEP COMFORTABLE ALONG WITH SEDATION. PROPOFOL IS NOW AT 35 MCG/ KG/ MINUTE. PATIENT CONTINUES TO RESPOND TO VERBAL STIMULI. PATIENT AFEBRILE. PATIENT REMAINS SATTING WELL ON SAME VENT SETTINGS. PATIENT REMAINS IN SR, SBP IN THE 150S TO 160S. OG REMAINS CLAMPED. CARBAJLA REMAINS DRAINING YELLOW URINE. NO CHANGE IN SKIN. NS TKO. PATIENT RECEIVING 20 MM POTASSIUM PHOS. ECHO PERFORMED THIS SHIFT. NO SIGNS OF PAIN AT THIS TIME. BED LOW, CALL LIGHT IN REACH. WILL CONTINUE TO MONITOR PATIENT FREQUENTLY UNTIL REPORT GIVEN TO ONCOMING WALL COVERING CONTRACTOR NURSE SHORTLY.
[2018-06-24] MEDS ORDERED: NICO21TP TOP (19:30)
[2018-06-24] MEDS ORDERED: Mucus Relief400 MG PO (19:32)
[2018-06-25 05:09] LABS: BASOPHILS ABSOLUTE AUTO 0.02 K/mm3 (0.00-0.23); BASOPHILS PERCENT AUTO 0 % (0-2); EOSINOPHILS PERCENT AUTO 0 % (0-6); Hematocrit 38.2 % (33.0-51.0); IMMATURE GRAN ABSOLUTE AUTO 0.17 K/mm3 (0.00-0.10); IMMATURE GRAN PERCENT AUTO 2 % (0-1); LYMPHOCYTES ABSOLUTE AUTO 0.63 K/mm3 (0.84-5.20); LYMPHOCYTES PERCENT AUTO 8 % (21-46); MONOCYTES PERCENT AUTO 5 % (4-13); Mean Corpuscular HGB 29.9 pg (26.0-34.0); Mean Corpuscular HGB Conc 31.4 g/dL (31.5-36.5); Mean Platelet Volume 9.9 fL (9.1-12.4); NEUTROPHILS ABSOLUTE AUTO 7.09 K/mm3 (1.96-9.15); NEUTROPHILS PERCENT AUTO 85 % (41-73); Platelet Count 198 K/mm3 (150-400); RDW Coefficient Variation 14.3 % (11.7-14.2); RDW Standard Deviation 49.9 fL (35.1-46.3); Red Blood Cell Count 4.02 M/mm3 (3.80-5.20); White Blood Cell Count 8.31 K/mm3 (4.00-11.30)
[2018-06-25 05:20] LABS: Mean Corpuscular Volume 95 fL (80-100)
[2018-06-25 05:23] LABS: Adenovirus Not Detected (NOT DETECT); Bordetella pertussis Not Detected (NOT DETECT); Chlamydophila pneumoniae Not Detected (NOT DETECT); Coronavirus 229E Not Detected (NOT DETECT); Coronavirus HKU1 Not Detected (NOT DETECT); Coronavirus NL63 Not Detected (NOT DETECT); Coronavirus OC43 Not Detected (NOT DETECT); Human Metapneumovirus Not Detected (NOT DETECT); Human Rhinovirus/Enterovirus Not Detected (NOT DETECT); Influenza A/2009-H1 Not Detected (NOT DETECT); Influenza A/H1 Not Detected (NOT DETECT); Influenza A/H3 Not Detected (NOT DETECT); Influenza B Not Detected (NOT DETECT); Mycoplasma pneumoniae Not Detected (NOT DETECT); Parainfluenza Virus 1 Not Detected (NOT DETECT); Parainfluenza Virus 2 Not Detected (NOT DETECT); Parainfluenza Virus 3 Not Detected (NOT DETECT); Parainfluenza Virus 4 Not Detected (NOT DETECT); Respiratory Syncytial Virus Not Detected (NOT DETECT)
[2018-06-25 05:31] LABS: Anion Gap 6 mmol/L (6-16); Blood Urea Nitrogen 17 mg/dL (8-24); Bun/Creatinine Ratio 21.7 (12.0-20.0); CO2, Blood 36 mmol/L (21-32); Calcium, Blood 8.1 mg/dL (8.5-10.1); Chloride, Blood 98 mmol/L (98-108); Creatinine, Blood 0.78 mg/dL (0.40-1.00); Glomerular Filtration Rate >60 (60-); Glucose, Blood 165 mg/dL (70-99); Potassium, Blood 3.9 mmol/L (3.5-5.5); Sodium, Blood 140 mmol/L (136-145)
[2018-06-25 05:32] LABS: Troponin I 0.035 ng/mL (0.000-0.040)
--- NOTE | 2018-06-25 06:36 | NUR ---
SUMMARY THROUGHOUT NIGHT PT HAS BEEN INTUBATED AND SEDATED. PT NEUROLOGICALLY INTACT, COMMUNICATING NONVERBALLY AND WITH PEN AND PAPER TO EXPRESS NEEDS. PT REPORTS PAIN/ANXIETY. MEDICATED PER EMAR. PT NOTED TO BE HYPERTENSIVE INTERMITTENTLY, RESPONSIVE TO PAIN AND ANXIETY MANAGEMENT. VENT SETTINGS UNCHANGED THROUGHOUT NIGHT. OTHERWISE VITALS STABLE, SEE FLOWSHEET. VENT WEAN THIS MORNING, SEE RESPIRATORY THERAPY DOCUMENTATION. PT ANXIOUS AND HYPERTENSIVE DURING WEAN. RE-TITRATED SEDATION. REGARDLESS OF SEDATION, PT CONSISTENTLY AROUSES TO VERBAL STIMULI AND COMMUNICATES NEEDS.
[2018-06-25 06:47] LABS: Influenza A Not Detected (NOT DETECT)
--- NOTE | 2018-06-25 08:00 | NUR ---
INITIAL ASSESSMENT PATIENT INTUBATED AND ON SEDATION- PROPOFOL AT 45 MCG/ KG/ MINUTE. PATIENT RESPONDS TO VERBAL STIMULI. PATIENT NODS HEAD TO YES AND NO QUESTIONS AND ALSO CAN WRITE ON NOTEPAD. PATIENT CAN BE ANXIOUS AT TIMES BUT IS CALM CURRENTLY. PATIENT PLEASANT AND COOPERATIVE. PATIENT HAS NO COMPLAINTS OF PAIN AT THIS TIME. PATIENT IS WEAK BUT ABLE TO ASSIST WITH REPOSITIONING. PATIENT AFEBRILE. PATIENT SATTING WELL ON AC 14, PEEP 5, TV 450, FIO2 35%. UPPER LUNG LOBES CLEAR, LOWER LUNG LOBES DIMINISHED. PATIENT IN NSR, HR IN THE 80S. BP STABLE. PULSES STRONG. NO EDEMA NOTED. OG IN PLACE- CLAMPED. CARBAJAL DRAINING YELLOW/ CLEAR URINE. SKIN APPEARS WNL. NS TKO. BED LOW, CALL LIGHT IN REACH. WILL CONTINUE TO MONITOR PATIENT FREQUENTLY THROUGHOUT SHIFT.
--- NOTE | 2018-06-25 12:10 | NUR ---
PATIENT RESTING QUIETLY IN BED UPON ENTERING ROOM. PATIENT GIVEN PRN IV FENTANYL FOR COMPLAINT OF PAIN IN ABDOMEN. PATIENT HAS TEMP OF 99.9 DEGREES FAHRENHEIT. PATIENT SATTING WELL ON PS 5/5, 35% FIO2. PATIENT IN SR, HR IN THE 90S. BP STABLE. NO ACUTE CHANGES TO NOTE ON AT THIS TIME. WILL CONTINUE TO MONITOR.
--- NOTE | 2018-06-25 16:35 | NUR ---
PATIENT RESTING QUIETLY IN BED. PATIENT REMAINS COMMUNICATING WELL DESPITE BEING INTUBATED. PATIENT HAS TEMP OF 99.9 DEGREES FAHRENHEIT. PATIENT GIVEN PRN ATIVAN FOR ANXIETY. NEW ORDER OBTAINED FROM DR. CARNES FOR PATIENT'S HOME DOSE OF PERCOCET SHE CONTINUES TO HAVE PAIN DESPITE USE OF PRN IV FENTANYL. DOSE OF PRN PERCOCET GIVEN. PATIENT ON PRESSURE SUPPORT 5/5, 30% FIO2 AND SATTING WELL. PATIENT IN ST, HR IN THE LOW 100S. BP STABLE. NO OTHER ACUTE CHANGES TO NOTE ON AT THIS TIME. WILL CONTINUE TO MONITOR.
--- NOTE | 2018-06-25 17:59 | NUR ---
SHIFT SUMMARY PATIENT REMAINED INTUBATED AND ON SEDATION THROUGHOUT SHIFT. PATIENT REMAINS COMMUNICATING WELL WITH USE OF NONVERBAL GESTURES WELL PEN AND PAPER. PATIENT ANXIOUS AT TIMES AND HAS PAIN IN ABDOMEN CHRONICALLY- WITH ADDITION OF HOME DOSE OF PERCOCET ADDED TODAY, PRN MEDICATIONS HAVE BEEN WORKING WELL FOR PATIENT. PATIENT HAD TMAX OF 100.2 DEGREES FAHRENHEIT. PATIENT REMAINS WEAK BUT IS ASSISTING WITH REPOSITIONING AND SOME ADLS. PATIENT SATTING WELL ON AC 14, TV 450, PEEP 5, 30% FIO2. PATIENT SATTED WELL ON MANY HOURS TODAY ON SPONTANEOUS PS 5/5, 30% FIO2. LUNGS REMAINED CLEAR IN UPPER LOBES AND DIMINISHED IN LOWER LOBES. PATIENT HAD LITTLE SPUTUM SUCTIONED FROM ETT. PATIENT REMAINED IN SR TO ST, HR 80S TO LOW 100S. BP STABLE. OG REMAINS CLAMPED. CARBAJAL REMAINS DRAINING YELLOW/ CLEAR URINE. NO CHANGE TO SKIN. PATIENT REPOSITIONED THROUGHOUT SHIFT. PROPOFOL INFUSING AT 45 MCG/ KG/ MINUTE, NS TKO. PATIENT'S SON IN TO VISIT THIS EVENING. NO COMPLAINTS AT THIS TIME. BED LOW, CALL LIGHT IN REACH. WILL CONTINUE TO MONITOR PATIENT FREQUENTLY UNTIL REPORT GIVEN TO ONCOMING CAR CLERK PULLMAN NURSE SHORTLY.
--- NOTE | 2018-06-26 05:51 | NUR ---
SUMMARY PT RESTING IN BED. PLACED ON SPONTANEOUS VENT SETTINGS THIS AM. PT IS ABLE TO MAKE NEEDS KNOWN BY HAND GESTURES OR WRITING ON PAPER EVEN ON SEDATION. PT HAD A RESTLESS NIGHT WITH PAIN IN LLQ. FINALLY WAS ABLE TO SLEEP FROM [id number] AFTER RECEIVING OXYCODONE, FENTANYL, ATIVAN AND INCREASING PROPOFOL TO 50MCG. NO OTHER ISSUES DURING THE NIGHT. CALL LIGHT IN REACH AND USES APPROPRIATELY.
--- NOTE | 2018-06-26 10:45 | NUR ---
0730: CARE ASSUMED, ASSESSMENT COMPLETED, A&OX4. PT REMAINS INTUBATED, VENT SETTINGS AC 14, Vt 450, FIO2 30%, PEEP 5. LS CTA ON RIGHT, DIM IN RIGHT BASE, FINE EXPIRATORY WHEEZES IN LEFT LUNG THAT DIMINISH WITH COUGHING. HRR, LS CTA, BT HYPOACTIVE, ABDOMEN SOFT NONTENDER TO PALPATION. LE'S ELEVATED, PT SITTING UP IN BED WATCHING TV, WRITES NOTES TO COMMUNICATE, REPORTS PAIN 8/10 TO LLQ, WILL MEDICATE PER ORDERS. PROPOFOL 35MCG/KG/MIN, NS 10ML/HR.
--- NOTE | 2018-06-26 10:49 | NUR ---
0900: PT REPORTS LLQ PAIN REMAINS 01/27, FENTANYL ADMINISTERED PER ORDERS. PT REMAINS INTUBATED, ALERT AND ORIENTED, SON CALLED PER PT'S REQUEST TO BRING IN ITEMS FOR PT TO PAY HER BILLS. PT DENIES OTHER NEEDS. 0955: PT RESTLESS, REQUESTS ATIVAN. VSS, PT ALERT AND ORIENTED X4, ATIVAN ADMINISTERED PER ORDERS. DR. MORFIN AT BEDSIDE, NEW ORDERS RECEIVED. VENT CHANGED TO SPONTANEOUS SETTING, FIO2 25% BY DR. MORFIN. 1016: VSS, LS CTA, PT EXTUBATED, OG TUBE REMOVED, UNABLE TO OBTAIN SPUTUM SAMPLE AT THIS TIME. PT TOLERATED EXTUBATION WELL, SPO2 DECREASED TO 88% ON RA, OXYGEN PLACED AT 2L/NC, SPO2 NOW 95-97%. PT TALKING WITH DR. CARNES AND DR. MORFIN, ICE CHIPS GIVEN. 1050: SPO2 99%, HR 90'S, VSS. PT TOLERATING ICE CHIPS WITHOUT DIFFICULTY, JELLO GIVEN.
--- NOTE | 2018-06-26 13:32 | NUR ---
1200: PT SITTING UP IN BED, LS CLEAR, DIM IN BASES, OCCASIONAL LOOSE COUGH NOTED, PT UNABLE TO COUGH UP SPUTUM AT THIS TIME. VSS, SPO2 MID 90%'S ON 2L/NC, PT DENIES SOB. HRR, TACHYCARDIC AT TIMES 110'S SINUS. PT TOLERATING FLUIDS WELL. 1330: PT C/O ANXIETY AND PAIN / TO LLQ, MEDICATED PER ORDERS. PT REPORTS SHE HAS HAD LYMPH NODES REMOVED FROM LEFT ARM, IV TO LEFT AC DC'D WITH TIP INTACT, PRESSURE DRESSING APPLIED. NEW DIET ORDER RECEIVED FROM DR. MORFIN AT THIS TIME.
--- NOTE | 2018-06-26 16:21 | NUR ---
1530: PT ATE LUNCH, TOLERATED WELL WITH NO COUGHING OR DESATURATION NOTED. 1600: PT ASSISTED TO CHAIR, LINENS CHANGED, PT ASSISTED WITH BEDSIDE BATH. CATH CARE COMPLETED, PT REFUSED ORAL CARE AT THIS TIME. PT BACK IN BED RECEIVING RT TREATMENT AT THIS TIME.
--- NOTE | 2018-06-26 16:45 | NUR ---
1640: TYLENOL ADMINISTERED FOR LLQ PAIN, FAN TURNED ON, TAPIOCA PUDDING GIVEN. PT DENIES OTHER NEEDS AT THIS TIME.
--- NOTE | 2018-06-26 18:44 | NUR ---
1730: PT REPOSITIONED SELF IN BED FOR DINNER, EATING WITHOUT DIFFICULTY, REPORTS RELIEF FROM TYLENOL. 1845: PT TOLERATED DINNER WELL, DENIES C/O AT THIS TIME. SPO2 97% 2L/NC, HR 112, OTHER VSS. PT HAD A LOW GRADE FEVER T/O DAY, 99-100.5, TYLENOL DID NOT EFFECT TEMP MUCH. PT TOLERATED EXTUBATION WELL, NO RESPIRATORY DIFFICULTIES FOLLOWING, CONTINUES TO BE WEAK AND SOB WITH EXERTION, BUT RECOVERS QUICKLY WITH REST, SPO2 DID NOT DROP BELOW 90% DESPITE ACTIVITY. PT TOLERATING PO WITHOUT ANY DIFFICULTIES, HR SINUS TACH, BP'S STABLE, A&OX4. REPORT TO ONCOMING NURSE.
--- NOTE | 2018-06-26 19:15 | NUR ---
ASSUMING CARE OF PT AT THIS TIME. PT REPORT RECEIVED AT BEDSIDE WITH OFFGOING NURSE, CARLA ALFONSO. PT LAYING IN BED, WATCHING TELEVISION UPON ENTERING THE ROOM. PT HYPERTENSIVE - SEE CONTACT HOSP. OTHERWISE, VS STABLE - SEE VS FS. PT DOES NOT APPEAR TO BE IN DISTRESS AT THIS TIME. WILL REVIEW PLAN OF CARE.
--- NOTE | 2018-06-26 19:30 | NUR ---
ASSESSMENT PT OCC ANXIETY (ATIVAN PRN), OTHERWISE CALM, COOPERATIVE, RESPONDS TO VERBAL STIMULI, SPONT OPENS EYES, A&O X4, TALKS AND ANSWERS QUESTIONS APPROPRIATELY. PT C/O N/T TO RLE. PT STATES HX OF N/T TO RLE. OTHERWISE, SENSATION INTACT. PT GREENE. PT C/O SLIGHT WEAKNESS FROM BASELINE. INCREASED WEAKNESS FROM PREVIOUS ADMISSION. PT TURNS SELF IN BED. PT OCC WALKS WITH SBA - WILL ASSIST WITH LINES/CORDS. PT C/O RLQ, LLQ, AND R LEG PAIN - MEDICATED WITH OXYCODONE/TYLENOL PER PHYSICIAN'S ORDER / UTILIZED NONPHARM METHODS. FENT PATCH IN PLACE. LUNGS CLEAR, LOWER LOBES DIMINISHED. SHALLOW BREATHING. PT ON 2L NC. OXY SAT >95%. RR 20'S. DENIES SOB @ REST. DSYPNEA WITH EXERTION. DYSPNEA NOTED WITH TALKING AND EATING. OCC NONPRODUCTIVE. TEMP 100.0 - FAN ON, BLANKETS REMOVED, TURNED DOWN ROOM TEMP. ST. HR 110'S. HYPERTENSIVE - CALL OUT TO [facility]. WAITING FOR PHONE CALL BACK FROM [facility]. STRONG PULSES. WARM, PINK, DRY SKIN. HYPOACTIVE BT X4 QUADRANTS. ABD SOFT, NONTENDER, MILD DIST. NO N/V. NO BM. F/C IN PLACE - CLEAR, YELLOW URINE. PIV X1 - SL. MEDIPORT - SL. PLANNING TO START NS TKO VIA MEDIPORT TO KEEP LINE OPEN.
--- NOTE | 2018-06-26 19:55 | NUR ---
[facility] PER REPORT - PT EXTUABTED THIS AM. PT TOLERATING PO REGULAR DIET. [facility] D/C PROTONIX PER TUBE ORDER AND ORDERED PROTONIX PO D/T PT TOELRATING REGUALR DIET. DURING LAST ADMISSION, PT WAS PERSCRIBED MELATONIN AT BEDTIME FOR INSOMNIA. PT STATES, "THE MELATONIN REALLY HELPED ME SLEEP. I WOULD REALLY LIKE SOME MELATONIN TONIGHT". [facility] JOHN[facility] ORDERED MELATONIN. INFORMED T[facility] JOHN[facility] OF VS - SEE VS FS. T[facility] JOHNST[facility] ORDERED HOME DOSAGE OF METOPROLOL TARTRATE 50 MG PO BID. WAITING FOR VERIFICATION OF MEDICATIONS AND WAITING FOR MELATONIN FROM PHARMACY AT THIS TIME.
[2018-06-26] MEDS ORDERED: LOSA25 PO (22:53)
--- NOTE | 2018-06-26 22:55 | NUR ---
[facility] JOHN[facility] METOPROLOL ADMINSITERED PER PHYSICIAN'S ORDER. SBP REMAINS 150'S TO 160'S. HR 90'S. TANNER JOHNSTON ORDERED COZAAR 25 MG DAILY WITH THE FIRST DOSAGE STARTING NOW. WAITING FOR VERIFICATION OF MEDICATION FROM PHARMACY AT THIS TIME.
--- NOTE | 2018-06-26 23:04 | NUR ---
HOME MEDICATIONS PT'S HOME MEDICATIONS BROUGHT TO PHARMACY. PHARMACY PLANNING TO SEND HOME MEDICATION LIST TO ICU.
--- NOTE | 2018-06-26 23:26 | NUR ---
HOME MEDICATION LIST PHARMACY SENT LIST OF HOME MEDICATIONS TO ICU. MEDICATION LIST IN PT'S CHART.
[2018-06-27 04:12] LABS: BASOPHILS ABSOLUTE AUTO 0.01 K/mm3 (0.00-0.23); BASOPHILS PERCENT AUTO 0 % (0-2); EOSINOPHILS PERCENT AUTO 0 % (0-6); Hematocrit 34.8 % (33.0-51.0); IMMATURE GRAN ABSOLUTE AUTO 0.15 K/mm3 (0.00-0.10); IMMATURE GRAN PERCENT AUTO 1 % (0-1); LYMPHOCYTES ABSOLUTE AUTO 0.64 K/mm3 (0.84-5.20); LYMPHOCYTES PERCENT AUTO 5 % (21-46); MONOCYTES ABSOLUTE AUTO 0.34 K/mm3 (0.16-1.47); MONOCYTES PERCENT AUTO 3 % (4-13); Mean Corpuscular HGB 30.4 pg (26.0-34.0); Mean Corpuscular HGB Conc 31.6 g/dL (31.5-36.5); Mean Corpuscular Volume 96 fL (80-100); Mean Platelet Volume 10.3 fL (9.1-12.4); NEUTROPHILS ABSOLUTE AUTO 12.21 K/mm3 (1.96-9.15); NEUTROPHILS PERCENT AUTO 92 % (41-73); Platelet Count 191 K/mm3 (150-400); RDW Coefficient Variation 14.5 % (11.7-14.2); Red Blood Cell Count 3.62 M/mm3 (3.80-5.20); White Blood Cell Count 13.35 K/mm3 (4.00-11.30)
--- NOTE | 2018-06-27 04:17 | NUR ---
SHIFT ASSESSMENT NO ACUTE CHANGES NOTED T/O SHIFT. PT SLEPT APPROXIMATELY 3 HOURS T/O SHIFT, ESPECIALLY AFTER ADMINISTERING MELATONIN AND ATIVAN. PT OCC ANXIETY (ATIVAN PRN), OTHERWISE CALM, COOPERATIVE, RESPODNS TO VERBAL STIMULI, SPONT OPENS EYES, A&O X4, TALKS AND ANSWERS QUESTIONS APROPRIATELY. PT C/O N/T TO RLE. PT STATES HX OF N/T TO RLE. OTHERWISE, SENSATION INTACT. PT GREENE. PT C/O SLIGHT WEAKNESS FROM BASELINE. PT TURNS SELF IN BED. PER REPORT - PT OCC WALKS WITH SBA. PT REMAINED IN BED T/O SHIFT. PT C/O RLQ, LLQ, AND R LEG PAIN. CONT TO ASSESS FOR PAIN/DISCOMFORT AND MEDICATED WITH PAIN MEDS PER PHYSICIAN'S ORDER / UTILIZED NONPHARM METHODS. FENT PATCH IN PLACE. LUNGS CLEAR, LOWER LOBES DIMINISHED. SHALLOW BREATHING. PT ON 2L NC. OXY SAT REMAINED >90%. RR 11 TO 30'S. DENIES SOB AT REST. DYSPNEA WITH EXERTION. DYSPENA NTOED WITH TALKING AND EATING. OCC NONPRODUCTIVE. TMAX 100.0 - FAN ON, BLANKETS REMOVED, TEMP TURNED DOWN IN ROOM, TYLENOL PER PHYSICIAN'S ORDER. CURRENTLY AFEBRILE. SR TO ST. HR 80'S TO 100'S. BP STABLE AFTER ADMINISTERING COZAAR AND METOPROLOL - SEE VS FS. STRONG PULSES. WARM, PINK, DRY SKIN. HYPOACTIVE BT X4 QUADRATNS. ABD SOFT, NONTENDER, MILD DIST. NO N/V. NO BM. PT TOLERATING PO REGULAR DIET. F/C IN PLACE - CLEAR, YELLOW URINE NTOED. PIV X1 - SL. MEDIPORT. NS TKO AT 10 ML/HR. WAITING FOR SPUTUM SAMPLE. AM LABS COMPLETED - WAITING FOR RESULTS AT THIS TIME. WILL CONT TO MONITOR PT AND WILL PROVIDE BEDSIDE REPORT TO ONCOMING NURSE THIS AM.
[2018-06-27 04:37] LABS: Anion Gap 5 mmol/L (6-16); Blood Urea Nitrogen 28 mg/dL (8-24); Bun/Creatinine Ratio 36.5 (12.0-20.0); CO2, Blood 34 mmol/L (21-32); Calcium, Blood 8.6 mg/dL (8.5-10.1); Chloride, Blood 100 mmol/L (98-108); Creatinine, Blood 0.77 mg/dL (0.40-1.00); Glomerular Filtration Rate >60 (60-); Glucose, Blood 124 mg/dL (70-99); Magnesium, Blood 1.9 mg/dL (1.6-2.4); Phosphorus, Blood 3.9 mg/dL (2.5-4.9); Potassium, Blood 4.2 mmol/L (3.5-5.5); Sodium, Blood 139 mmol/L (136-145)
[2018-06-27 05:15] LABS: PCO2 Arterial 55.5 mmHg (35-45); PO2 Arterial 75.7 mmHg (80-100); pH Blood Arterial 7.41 (7.35-7.45)
--- NOTE | 2018-06-27 13:38 | NUR ---
REASSESSMENT: PT HAS SPENT THE MORNING RESTING IN BED. SHE STATES HER BREATHING IS FEELING BETTER. SHE STILL GETS DYSPNEIC WITH ACTIVITY, BUT HAS BEEN ABLE TO GET UP TO THE COMMODE EASILY. SHE REFUSED A SHOWER THIS MORNING SO SHE COULD SLEEP, SINCE SHE SAYS THAT SHE DIDN'T GET MUCH SLEEP LAST NIGHT. LUNGS ARE CLEAR, ON 2L/NC. BP STABLE. CARBAJAL WAS REMOVED AND SHE IS VOIDING CL YELLOW URINE. AT LUNCH PT GOT A PIECE OF PORK STUCK IN HER ESOPHAGUS, BUT WAS ABLE TO WORK IT OUT WITHOUT ANY INTERVENTION. PT STATES THIS HAS HAPPENED TO HER IN THE PAST AND SHE JUST HAS TO REMEMBER TO CHEW HER FOOD WELL. NO OTHER CHANGES FROM EARLIER THIS MORNING. CONTINUING TO MONITOR.
--- NOTE | 2018-06-27 16:55 | NUR ---
SHIFT SUMMARY: PT HAS BEEN RESTING IN BED THIS AFTERNOON. SHE IS GETTING UP TO THE COMMODE TO VOID, BUT DOES GET DYSPNEIC WITH ACTIVITY. SHE TAKES ABOUT 1 MINUTE TO RECOVER AFTER SHE GETS BACK TO BED. LUNGS HAD A SLIGHT EXP WHEEZE THIS AFTERNOON AFTER HER BREATHING TX. REMAINS ON 2L/NC. SR, BP STABLE, SEE VITALS. NO OTHER CHANGES FROM EARLIER ASSESSMENTS. CONTINUING TO MONITOR.
--- NOTE | 2018-06-27 19:00 | NUR ---
ASSUMED CARE ASSUMED CARE OF PATIENT. AWAKE AND ALERT. SITTING UP IN BED WATCHING TELEVISION. REPOSITIONS SELF IN BED. RESPIRATIONS EVEN AND UNLABORED AT REST. SOB/DYSPNEA NOTED WITH EXERTION. O2 @ 2LNC. OCCASIONAL NON-PRODUCTIVE COUGH. MONITOR SHOWS NSR, RATE 80s. VOIDING WITHOUT DIFFICULTY. CONTINUES WITH C/O 8-10/10 PAIN DEPENDING ON ACTIVITY. C/O RIGHT BACK/LEG PAIN D/T "SCIATICA" AND LLQ ABDOMINAL PAIN. SEE SHIFT ASSESSMENT FOR FULL ASSESSMENT.
--- NOTE | 2018-06-28 06:23 | NUR ---
SHIFT SUMMARY NO ACUTE CHANGES DURING NOC. SLEPT INTERMITTENTLY. UP TO BSC WITH STANDBY ASSIST. SOB/DYSPNEA NOTED WITH EXERTION. OCCASIONAL NON-PRODUCTIVE COUGH NOTED. REMAINS ON 2LNC. VSS. MONITOR SHOWS NSR, RATE 70-80s. VOIDING WITHOUT DIFFICULTY. MEDICATED WITH OXYCODONE 10/325MG PO X 2 FOR RIGHT BACK/LEG PAIN AND LLQ PAIN WITH ADEQUATE RELIEF. MEDICATED WITH ATIVAN 0.5MG PO X 2 FOR GENERAL ANXIETY. WILL REPORT TO DAY SHIFT RN WHEN AVAILABLE.
--- NOTE | 2018-06-28 08:39 | NUR ---
NURSING ICU DAYSHIFT: Assumed care of pt at approx 0700. A/O, pleasant, cooperative w/care, noted general weakness. Denies any pain/discomfort at this time. Skin is fragile w/scattered bruising, no breakdown noted. Heart monitor in place, NSR, no c/o CP/pressure, HTN prior to a.m. meds, no noted edema. L/S with I/E wheezes t/o, dyspnea w/exertion, O2 sat mid 90's on 2L NC, occ dry/ELECTRONICS SCALE TESTER cough. Abd SNT, BT+, c/o constipation, voiding w/o difficulty per pt. PIV x1, s/l, mediport to RCW which is accessed w/NS TKO. Pt denies any current needs or questions regarding plan of care. Call light in reach and pt is able to use w/o difficulty. Pt remains medical status w/tele. Awaiting rounding from PMD, cont to monitor for any changes.
--- NOTE | 2018-06-28 14:00 | NUR ---
ASSUMED CARE OF PATIENT; NO ACUTE PROBLEMS AT THIS TIME; OXYGEN AT 2L/MIN VIZ NC. UP FOR BRP WITH SBA.
--- NOTE | 2018-06-28 18:08 | NUR ---
SUMMARY: NO ACUTE PROBLEMS; APPETITE GOOD AND NO GI UPSET; 2 LARGE STOOLS TODAY. VSS; REMAINS MEDICAL FLOOR STATUS/NO TELEMETRY; NO BEDS AVAILABLE AT THIS TIME. ANXIETY REDUCED SINCE RECEIVED PAIN MED. AND ATIVAN; RELAXED AND ALERT AT THIS TIME; VERY TALKATIVE AND COOPERATIVE.
--- NOTE | 2018-06-28 19:20 | NUR ---
ASSUMED CARE REPORT RECIEVED. PT IS SITTING UP IN BED WATCHING TV, AWAKE, ALERT, AND ORIENTED. PT IS PLEASANT AND TALKATIVE. PT ON 2L O2 NC. VITAL SIGNS STABLE, HYPERTENSIVE, WILL MED PER EMAR. PT UP TO TOILET WITH SBA TO VOID. MEDIPORT TO RIGHT CHEST IN PLACE WITH NS TKO. PT SOB WITH EXERTION, BUT DENIES SOB WHEN RESTING. WILL CONTINUE TO MONITOR.
--- NOTE | 2018-06-29 06:07 | NUR ---
SHIFT SUMMARY NO ACUTE CHANGES THIS SHIFT. PT HAS SLEPT OFF AND ON THROUGHOUT THE NIGHT. VITAL SIGNS HAVE REMAINED STABLE WITH PT ON 2L O2 NC. PT HAS REPOSITIONED SELF IN BED INDEPENDENTLY. PT UP TO BSC WITH SBA. PT VOIDING WELL. MEDIPORT C/D/I WITH NS INFUSING TKO. WILL CONTINUE TO MONITOR AND REPORT OFF TO ONCOMING RN.
--- NOTE | 2018-06-29 10:33 | NUR ---
0715-ASSUMED CARE OF PT. PT IS ALERT AND ORIENTED. DENIES PAIN AT THIS TIME. 08-PT STATED SHE'S FEELING ANXIOUS. MEDICATED PT FOR ANXIETY. 899-SEEN BY DR. REDD. UPDATED HIM OF PT'S STATUS. 932-MEDICATED PT FOR PAIN. PT STATED SHE WANTED TO GET UP OUT OF BED. EXPLAINED TO HER THAT SHE IS ALLOWED. SHE JUST NEEDS TO CALL FOR HELP WHEN SHE WANTS TO STAND.
--- NOTE | 2018-06-29 14:39 | NUR ---
DR. CLEMENT WAS NOTIFIED FOR THE GI CONSULT.
--- NOTE | 2018-06-29 15:04 | NUR ---
PT WAS TAKEN TO THE SHOWER ROOM FOR A SHOWER. PT IS WEARING O2 WHILE IN THE SHOWER. PT INFORMED THAT SHE CAN GIVE HERSELF A SHOWER. A FEW MINUTES LATER WHILE IN THE SHOWER PT CALLED FOR HELP STATING SHE CAN'T BREATHE. PT IS STILL WEARING HER O2 @ 2LPM. PT IS VERY DYSPNEIC. DRIED PT AND BROUGHT HER BACK TO BED. O2 SATURATION WHILE ON 2LPM WAS 84%. INCREASED 02 4LPM NC. BREATH SOUNDS ARE WHEEZING AND RHONCHI. INFORMED DR. REDD REGARDING THIS. PT IS RECEIVING BREATHING TREATMENTS AT THIS TIME. CURRENTLY PT'S O2 SATURATION IS AT 95% ON 4LPM. PT STATED THE BREATHING TREATMENT IS HAS SLIGHTLY HELPED. DR. REDD STATED TO CALL PULMONARY IF SYMPTOMS PERSIST.
--- NOTE | 2018-06-29 15:24 | NUR ---
PT'S WORK OF BREATHING HAS IMPROVED FROM WHERE IT WAS. PT'S RR IMPROVED AFTER SHE RECEIVED BREATHING TREATMENT. PT STATED THAT SHE GOT PANICKED WHILE IN THE SHOWER ROOM. PT GOT HER ATIVAN DOSE AT THIS TIME.
--- NOTE | 2018-06-29 16:36 | NUR ---
PT IS CALMER AT THIS TIME. BREATHING A LITTLE EASIER.
--- NOTE | 2018-06-29 17:27 | NUR ---
SHIFT SUMMARY: PT'S WORK OF BREATHING HAS SIGNIFICANTLY IMPROVED FROM WHERE SHE WAS THIS AFTERNOON. PT STILL ON 3LPM O2. PT IS MORE CALMER. DENIES PAIN AT THIS TIME. PT RECEIVED 2 DOSES OF PAIN MEDICATION AND 2 DOSES OF ATIVAN TODAY. PT GETS OUT OF BED TO THE BEDSIDE COMMODE TO VOID. SHE GETS SHORT OF BREATH WITH EXCERTION BUT KEEPING HER O2 SATURAION ABOVE 90% EXCEPT FOR WHEN SHE GETS PANICKED.
--- NOTE | 2018-06-29 21:00 | NUR ---
ASSUMED CARE REPORT RECIEVED. PT IS SITTING UP IN BED, APPEARS CALM AT THIS TIME. PT REQUESTING PAIN MEDS AND ATIVAN WHEN AVAILABLE. PT IS ALERT, ORIENTED, AND FOLLOWING COMMANDS APPROPRIATELY. PT ON 2L O2 NC. VITAL SIGNS STABLE. MEDIPORT TO RIGHT CHEST SALINE LOCKED. IV SALINE LOCKED. PT COMPLAINS OF SOME SOB AT THIS TIME. WILL CONTINUE TO MONITOR.
--- NOTE | 2018-06-30 05:54 | NUR ---
SHIFT SUMMARY NO ACUTE CHANGES. PT HAS SLEPT OFF AND ON THROUGHOUT THE NIGHT. PT HAS REPOSITIONED SELF IN BED INDEPENDENTLY FOR COMFORT. PT UP TO BSC MULTIPLE TIMES THIS SHIFT TO VOID. VITAL SIGNS STABLE, PT ON 2L O2 NC. MEDIPORT REMAINS SALINE LOCKED, IV SALINE LOCKED. PT MED PER EMAR FOR CHRONIC PAIN. WILL CONTINUE TO MONITOR AND REPORT OFF TO ONCOMING RN.
--- NOTE | 2018-06-30 08:58 | NUR ---
CARE ASSUMED CARE AND REPORT ASSUMED FROM XOCHILT AFLONSO. PT SITTING UP IN BED, TALKING WITH MD. ANXIOUS AND TEARFUL, REQUESTING ANXIETY MEDS, PAIN MEDS, AND TO SMOKE. REITERATED TO PT THE NEED TO QUIT. NICOTINE PATCH DOSE CHANGED BY MD AND NICOTINE GUM ADDED; WILL ADMINISTER TO PT. AFEBRILE. ELEVATED BP AT THIS TIME, 180/80; WILL RECHECK WHEN PT IS MORE CALM. LUNG SOUNDS WHEEZY IN MID TO LOWER LOBES WITH TIGHTNESS. PT TALKING IN SENTENCES BUT QUICKLY GETS SHORT OF BREATH. IV AND MEDIPORT PATENT BUT SALINE LOCKED AT THIS TIME. OXYCODONE AND ATIVAN PO GIVEN TO PT. RECEVING BEDBATH BY COMMERCIAL LENDER. NSR, HR 80S. WILL CONTINUE TO MONITOR.
--- NOTE | 2018-06-30 11:41 | NUR ---
REASSESSMENT PT RECEIVED BEDBATH AND LINEN CHANGE SINCE PRIOR ASSESSMENT. SHE IS NOW CALM, COOPERATIVE AND IN BETTER SPIRITS. CONVERSATIONAL AND LAUGHING WITH STAFF. VSS. NSR 70S. BP IMPROVED TO 153/72. AFEBRILE. RECEVING BREATHING TREATMENT AT THIS TIME. WILL CONTINUE TO MONITOR.
[2018-06-30 11:50] LABS: Hematocrit 34.6 % (33.0-51.0); Hemoglobin 10.8 g/dL (11.5-16.0); Mean Corpuscular HGB 30.7 pg (26.0-34.0); Mean Corpuscular HGB Conc 31.2 g/dL (31.5-36.5); Mean Corpuscular Volume 98 fL (80-100); Mean Platelet Volume 10.6 fL (9.1-12.4); Platelet Count 189 K/mm3 (150-400); RDW Coefficient Variation 14.7 % (11.7-14.2); RDW Standard Deviation 52.8 fL (35.1-46.3); Red Blood Cell Count 3.52 M/mm3 (3.80-5.20); White Blood Cell Count 14.87 K/mm3 (4.00-11.30)
[2018-06-30 12:11] LABS: Anion Gap 2 mmol/L (6-16); Blood Urea Nitrogen 30 mg/dL (8-24); CO2, Blood 35 mmol/L (21-32); Calcium, Blood 8.3 mg/dL (8.5-10.1); Chloride, Blood 103 mmol/L (98-108); Creatinine, Blood 0.65 mg/dL (0.40-1.00); Glomerular Filtration Rate >60 (60-); Glucose, Blood 100 mg/dL (70-99); Sodium, Blood 140 mmol/L (136-145)
--- NOTE | 2018-06-30 16:53 | NUR ---
REASSESSMENT PT CALM, COOPERATIVE AND IN GOOD SPIRIT. CHATTY WITH STAFF. AMBULATORY AROUND ROOM INDEPENDENTLY. FENTANYL 50 MCG PATCH CHANGED AND NEW ONE APPLIED. IV SALINE LOCKED. NSR 80S. BP 155/69. SPO2 98% ON 2L NC. NO SIGNS OF RESP DISTRESS. WILL CONTINUE TO MONITOR.
--- NOTE | 2018-06-30 17:42 | NUR ---
SHIFT SUMMARY PT WAS ANXIOUS AND SOB AT START OF SHIFT. ONCE GIVEN HER ATIVAN AND A BREATHING TX, PT CALMED DOWN AND BREATHING IMPROVED. AMBULATORY AROUND ROOM DURING SHIFT WITH NO ASSISTANCE. NICOTINE PATCH APPLIED AND NICORETTE GUM GIVEN NEEDED. FENTANYL PATCH CHANGED. OXYCODONE PO GIVEN 2X PER PT REQUEST. SEEN BY MD CLEMENT, WHO STATED HE WOULD TREAT PT OUTPT THERE WAS NO NEED FOR IMMEDIATE SCOPE. WILL GIVE BEDSIDE, HANDOFF REPORT TO LOUIS RN.
--- NOTE | 2018-06-30 18:43 | NUR ---
attemtped x 2 will try again tomorrow to see pt
--- NOTE | 2018-07-01 08:11 | NUR ---
[id number]: AWAKE IN BED, CHEERFUL & COOPERATIVE BUT PROGRESSIVELY ANXIOUS. ATIVAN 0.5MG GIVEN, PT PLACED SUBLINGUAL. OXYCODONE 10/325 GIVEN FOR C/O PAIN. PT QUICKLY W/DECREASED ANXIETY, STATES PAIN RELIVED TO 5/10.TOLERATING OOB W/ MINIMAL DYSPNEA, SPO2 > 90. SLEPT AT INTERVALS, NICOTINE GUM (1) GIVEN, USED INTERMIT. PT AGAIN ANXIOUS AT 5.5 HRS AFTER PREVIOUS ATIVAN DOSE, GIVEN W/ OXYCODONE / REQUEST FOR MAXIMIZED COMFORT. REMAINDER SHIFT UNEVENTFUL.
--- NOTE | 2018-07-01 08:54 | NUR ---
DR. REDD AT BEDSIDE FOR EVALUATION.
--- NOTE | 2018-07-01 10:55 | NUR ---
NURSING SUMMARY ALERT AND ORIENTED X 4. NSR ON MONITOR, HR 70'S, MIDL HYPERTENSION, BP 156/87, GAVE ROUTINE ANTI-HYPERTENSIVE MEDICATIONS EARLY. LUNGS CLEAR THROUGHOUT, 2L O2 NC, SATS ABOVE 90%. USES HOME O2 AT 2L NC. CALLS APPROPRIATELY FOR ASSISTANCE OUT OF BED TO THE BATHROOM, LAST BM ON 06/29, DENIES CONSTIPATION, GAVE COLACE THIS AM. C/O GROIN AREA PAIN, HAS A FENTANYL PATCH ON AND MEDICATED WITH OXYCODONE AND ATIVAN AT 0815, WILL MEDICATE EVERY 6 HOURS. PT STATES SHE GETS ANXIOUS IF WE ARE NOT ON TIME WITH THE PAIN MEDICATIONS AND ATIVAN. INSTRUCTED PT THAT I WILL DO MY VERY BEST TO ASSURE SHE RECEIVES THESE MEDICATIONS ON TIME. RIGHT UPPER CHEST PORT ACCESSED AND SALINE LOCKED. RIGHT FOREARM/HAND 20G SALINE LOCK.
--- NOTE | 2018-07-01 18:23 | NUR ---
NURSING SUMMARY UPDATE PATIENT INDEPENDENT IN ROOM, AMBULATED TO THE SHOWER WITH STANDBY ASSISTANCE, TOLERATED WELL. C/O LEFT GROIN/ABDOMINAL AREA PAIN THAT IS CHRONIC, MEDICATING EVERY 6 HOURS WITH OXYCODONE AND ATIVAN. PATIENT WOULD LIKE BOTH MEDICATIONS EVERY 6 HOURS CLOSE TO ON-TIME POSSIBLE.
--- NOTE | 2018-07-02 07:32 | NUR ---
[id number]: EPISODES ANXIETY, DYSPNEA WHEN EXERTION INCREASED OR FRUSTRATION. NOTED TO BE PURSED LIP BREATHING, COACHING SELF TO RELAX, REST. USING 2L 02 BY NASAL CANNULA. NO DECREAESE IN SPO2 NOTED. PT ADMITS TO CIGARETTE CRAVINGS, NICORETTE GUM, POSITIVE REINFORCEMENT GIVEN. XANAX, PERCOCET Q 6 HRS / PT REQUEST. SLEEPING AT INTERVALS.
--- NOTE | 2018-07-02 08:25 | NUR ---
DR. REDD AT BEDSIDE FOR EVALUATION.
--- NOTE | 2018-07-02 10:26 | NUR ---
CALLED REPORT TO [facility] RN, WHOM WILL ASSUME CARE OF PT WHEN TRANSFERRED TO ROOM 327.
--- NOTE | 2018-07-02 17:25 | NUR ---
PT AOX4 AND COOPERATIVE OF CARE. PT WILL REQUEST RT WHEN NEEDED AND IS INDEPENDENT IN ROOM. PT DOES REQUIRE ANXIETY AND PAIN MEDICATION PER EMAR. NO DISTRESS AT THIS TIME.
--- NOTE | 2018-07-03 07:23 | NUR ---
SHIFT SUMMARY PT HAD A RESTFUL SHIFT. PT DOES BECOME VERY ANXIOUS AND AGITATED WHEN IT IS TIME FOR HER MEDS. PT HAD NO ACUTE ISSUES NOTED AND RESTED THROUGHOUT SHIFT. PT RESPONDED WELL TO TX. PT IS BREATHING EASY WITH CALL LIGHT IN REACH.
--- NOTE | 2018-07-03 18:01 | NUR ---
SHIFT SUMMARY PATIENT A&O X4, INDEPENDENT TO BS. HAS HAD COMPLAINTS OF SEVERE PAIN OF HER LEFT GROIN, ACROSS HER LOWER ABDOMINAL AREA, AND DOWN THE RIGHT LEG. RN MEDICATED PER E MAR THROUGHOUT THE SHIFT. OXYGEN AT 3L. SOB WITH EXERTION. PATIENT GETS VERY ANXIOUS, GETS ATIVAN Q 6 HOURS. BECAME VERY ANXIOUS AND OVERWHELMED TODAY WHEN DISCUSSING POSSIBLE DISCHARGE TO REHAB FACILITY.CALMED DOWN WITH SOME BREATHIGN EXERCISES. BED ALARM IN LOWEST POSITION, CALL LIGHT WITHIN REACH. NO ACUTE CHANGES. RN WILL CONTINUE TO MONITOR.
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
--- NOTE | 2018-07-04 04:48 | NUR ---
VSS, AFEBRILE, A/O, IND TO BSC, CALLS OUT W/ PANIC ATTACKS, MEDIPORT R CHEST IS ACCESSED BUT NOT BEING USED. PMHX: COPD, CHF, OVARIAN CA W/METS TO LUNGS, MAY D/C TO SNF TODAY
--- NOTE | 2018-07-04 14:59 | NUR ---
Pt is up and talking with family. She reports severe pain (10/10) and anxiety (10/10). She is watching the clock and knows when she is able to have medication. She requests both pain meds and anti-anxiety. RT comes to room for treatment. Notified nursing of pain med request. Will remain available.
--- NOTE | 2018-07-04 18:28 | NUR ---
NO NOTEABLE CHANGES THIS SHIFT. UNSURE WHETHER PT. WILL BE GOING HOME OR TO SNF. ONLY IS AVAILABLE AT THIS TIME [facility] IS IN QUARANTINE R/T FLU. PT. REFUSES TO GO TO [facility], [facility], OR [facility].
--- NOTE | 2018-07-05 05:00 | NUR ---
VSS, AFEBRILE, A/O BUT SOMEWHAT MORE CONFUSED OVER NOC, SLURS HER WORDS AT TIMES, ANXIOUS, INDEPENDENT, MEDIPORT IN R CHEST WALL, ACCESSED BUT SL. PMHX: CPOD, CHF, OVARIAN CA W/METS TO LUNGS, 2 - 3L NC, CALLS OUT W/PANIC ATTACKS, OCTOBER D/C HOME TODAY W/HOME HEALTH
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
--- NOTE | 2018-07-05 19:08 | NUR ---
PT. TALKING ON PHONE AT THIS TIME. PT. EUPHORIC ACTING AT THIS TIME. PT. APPEARS TO HAVE HAD A CHANGE IN MENTATION. AT TIMES DOES NOT MAKE SENSE AND REPEATS HERSELF OVER AND OVER. NO OTHER CHANGED NOTED THIS SHIFT.
--- NOTE | 2018-07-06 04:27 | NUR ---
SHIFT SUMMARY PATIENT HAD NO ACUTE CHANGES OBSERVED THIS SHIFT. BREATHING TX BY RT. AXO X3 AND INDEPENDENT. MEDIPORT IN RIGHT CHEST WALL. DENIES N/V. VSS/AFEBRILE. ON 2L O2 NC. NO DECREASE IN MENTATION NOTED. TAKES MEDS WHOLE WITH WATER. COOPERATIVE WITH CARE. REPORTED PAIN AND ANXIETY AND RECEIVED ATIVAN AND OXY PER EMAR X TWO. PATIENT ABLE TO MANAGE PAIN AND SLEEP. CALL LIGHT IN REACH. BED IN LOWEST POSITION. WILL CONTINUE TO MONITOR UNTIL DAY SHIFT NURSE ASSUMES CARE.
--- NOTE | 2018-07-06 19:13 | NUR ---
DRESSING NOT CHANGED TODAY PT. IS BEING DISCHARGED TOMORROW
--- NOTE | 2018-07-06 19:15 | NUR ---
PT. LYING QUIETLY , NO NOTEABLE CHANGES TODAY. PT. GETTING PAIN MEDS AND ATIVAN EVERY 6 HOURS. PROBABLE DISCHARGE TOMORROW TO HOME.
--- NOTE | 2018-07-07 04:12 | NUR ---
SHIFT SUMMARY PATIENT HAD NO ACUTE CHANGES OBSERVED THIS SHIFT. AXOX 3 AND INDEPENDENT TO BSC. PATIENT REPORTS PAIN AND ANXIETY AND RECEIVED ATIVAN AND OXY PER EMAR TIME TWO THIS SHIFT. PATIENT ABLE TO SLEEP WITH PAIN MANAGEMENT. BREATHING TX BY RT. VSS/AFEBRILE. ON 2L O2 NC. CALL LIGHT IN REACH. BED IN LOWEST POSITION. WILL CONTINUE TO MONITOR UNTIL DAY SHIFT NURSE ASSUMES CARE.
[2018-07-07 06:20] LABS: BASOPHILS ABSOLUTE AUTO 0.01 K/mm3 (0.00-0.23); BASOPHILS PERCENT AUTO 0 % (0-2); EOSINOPHILS ABSOLUTE AUTO 0.06 K/mm3 (0.00-0.68); EOSINOPHILS PERCENT AUTO 1 % (0-6); Hematocrit 33.6 % (33.0-51.0); Hemoglobin 10.3 g/dL (11.5-16.0); IMMATURE GRAN ABSOLUTE AUTO 0.03 K/mm3 (0.00-0.10); IMMATURE GRAN PERCENT AUTO 0 % (0-1); LYMPHOCYTES ABSOLUTE AUTO 1.87 K/mm3 (0.84-5.20); LYMPHOCYTES PERCENT AUTO 22 % (21-46); MONOCYTES ABSOLUTE AUTO 0.64 K/mm3 (0.16-1.47); MONOCYTES PERCENT AUTO 8 % (4-13); Mean Corpuscular HGB 30.7 pg (26.0-34.0); Mean Corpuscular HGB Conc 30.7 g/dL (31.5-36.5); Mean Corpuscular Volume 100 fL (80-100); Mean Platelet Volume 10.6 fL (9.1-12.4); NEUTROPHILS ABSOLUTE AUTO 5.74 K/mm3 (1.96-9.15); NEUTROPHILS PERCENT AUTO 69 % (41-73); Platelet Count 190 K/mm3 (150-400); RDW Coefficient Variation 14.9 % (11.7-14.2); RDW Standard Deviation 54.4 fL (35.1-46.3); Red Blood Cell Count 3.36 M/mm3 (3.80-5.20); White Blood Cell Count 8.35 K/mm3 (4.00-11.30)
[2018-07-07 06:40] LABS: Alanine Aminotransfer (ALT/SGP 72 U/L (12-78); Albumin, Blood 2.7 g/dL (3.4-5.0); Albumin/Globulin Ratio 0.9 (0.8-1.8); Alk Phos 46 U/L (50-136); Anion Gap 4 mmol/L (6-16); Aspartate Aminotrans (AST/SGOT 6 U/L (12-37); Bilirubin, Total 0.2 mg/dL (0.1-1.0); Blood Urea Nitrogen 37 mg/dL (8-24); Bun/Creatinine Ratio 45.7 (12.0-20.0); CO2, Blood 39 mmol/L (21-32); Calcium, Blood 8.5 mg/dL (8.5-10.1); Chloride, Blood 102 mmol/L (98-108); Creatinine, Blood 0.81 mg/dL (0.40-1.00); Glomerular Filtration Rate >60 (60-); Glucose, Blood 75 mg/dL (70-99); Magnesium, Blood 2.3 mg/dL (1.6-2.4); Sodium, Blood 145 mmol/L (136-145); Total Protein, Blood 5.7 g/dL (6.4-8.2)
[2018-07-07] MEDS ORDERED: DOCU100 PO (09:32)
[2018-07-07] MEDS ORDERED: MIRT30 PO (09:33)
[2018-07-07] MEDS ORDERED: Nicotine Gum2 MG PO (09:35)
[2018-07-07] MEDS ORDERED: OMEPRAZOLE MAGN20 MG PO (09:36)
--- NOTE | 2018-07-07 12:00 | NUR ---
PT DISCHARGED TO HOME WITH SON. ESCORTED BY SON VIA WHEELCHAIR. PT VERBALIZED UNDERSTANDING OF DISCHARGE MEDICATIONS. MEDIPORT DEACCESED AND HEPARIN LOCKED. ALL HOME MEDS SENT HOME WITH PT FROM PHARMACY. ALL BELONGINGS WITH PT
== END 2018-07-07 11:52 | disposition home health service (06) | DRG 208 ==
LOC: ER 14:46 → ICUW 14:53 → MEDS 07-02 10:46 → ENPENDDIS 07-07 09:00 → MEDS 07-07 11:52
PROVIDERS: Emergency Medicine; Internal Medicine; Internal Medicine Critical Care Medicine; ADMIT Internal Medicine
PROC: 5A1945Z Respiratory Ventilation, 24-96 Consecutive Hours (ICD-10-PCS; principal; 2018-06-24)
DX: J96.01 Acute respiratory failure with hypoxia (principal); E43 Unspecified severe protein-calorie malnutrition; I50.42 Chronic combined systolic (congestive) and diastolic (congestive) heart failure; J44.1 Chronic obstructive pulmonary disease with (acute) exacerbation; F17.200 Nicotine dependence, unspecified, uncomplicated; J96.02 Acute respiratory failure with hypercapnia; G89.4 Chronic pain syndrome; F41.9 Anxiety disorder, unspecified; Z85.43 Personal history of malignant neoplasm of ovary; E87.6 Hypokalemia; Z51.5 Encounter for palliative care; F43.10 Post-traumatic stress disorder, unspecified; Z68.21 Body mass index [BMI] 21.0-21.9, adult; I11.0 Hypertensive heart disease with heart failure; Z99.81 Dependence on supplemental oxygen
CPT/HCPCS: 31720; 36415; 36600; 51702; 71045; 80047; 80048; 80053; 81001; 82803; 83735; 83880; 84100; 84145; 84484; 85014; 85025; 85027; 87070; 87205; 87486; 87581; 87633; 87798; 92610; 93005; 93010; 93306; 94002; 94003; 94640; 94667; 94668; 94760; 97116; 97162; 97530; 99291-25; 99406; J1642; J1650; J1940; J2060; J2543; J2920; J3010; J7040; J7060

== ENCOUNTER 2018-07-08 10:14 | Inpatient (IN) | payer OTHER ==
[~2018-07-08] VITALS: Ht 154.9 cm; Wt 49.5 kg
[~2018-07-08 10:14] MED LIST changes: +DOCU100 PO; +MIRT30 PO; +Mucus Relief400 MG PO; +NICO21TP TOP; +Nicotine Gum2 MG PO; +OMEPRAZOLE MAGN20 MG PO
[2018-07-08 10:32] LABS: PCO2 Arterial 67.6 mmHg (35-45); PO2 Arterial 71.9 mmHg (80-100); pH Blood Arterial 7.35 (7.35-7.45)
[2018-07-08 10:45] LABS: BASOPHILS ABSOLUTE AUTO 0.04 K/mm3 (0.00-0.23); BASOPHILS PERCENT AUTO 0 % (0-2); EOSINOPHILS ABSOLUTE AUTO 0.14 K/mm3 (0.00-0.68); EOSINOPHILS PERCENT AUTO 1 % (0-6); Hematocrit 42.7 % (33.0-51.0); Hemoglobin 12.6 g/dL (11.5-16.0); IMMATURE GRAN ABSOLUTE AUTO 0.09 K/mm3 (0.00-0.10); IMMATURE GRAN PERCENT AUTO 1 % (0-1); LYMPHOCYTES ABSOLUTE AUTO 2.22 K/mm3 (0.84-5.20); LYMPHOCYTES PERCENT AUTO 12 % (21-46); MONOCYTES ABSOLUTE AUTO 0.81 K/mm3 (0.16-1.47); MONOCYTES PERCENT AUTO 5 % (4-13); Mean Corpuscular HGB 30.7 pg (26.0-34.0); Mean Corpuscular HGB Conc 29.5 g/dL (31.5-36.5); NEUTROPHILS ABSOLUTE AUTO 14.74 K/mm3 (1.96-9.15); NEUTROPHILS PERCENT AUTO 82 % (41-73); Platelet Count 250 K/mm3 (150-400); RDW Coefficient Variation 15.2 % (11.7-14.2); White Blood Cell Count 18.04 K/mm3 (4.00-11.30)
[2018-07-08 10:46] LABS: Mean Corpuscular Volume 104 fL (80-100)
[2018-07-08 11:05] LABS: Alanine Aminotransfer (ALT/SGP 129 U/L (12-78); Albumin, Blood 3.4 g/dL (3.4-5.0); Albumin/Globulin Ratio 0.9 (0.8-1.8); Alk Phos 78 U/L (50-136); Anion Gap 6 mmol/L (6-16); Aspartate Aminotrans (AST/SGOT 72 U/L (12-37); Bilirubin, Total 0.4 mg/dL (0.1-1.0); Blood Urea Nitrogen 28 mg/dL (8-24); Bun/Creatinine Ratio 30.1 (12.0-20.0); CO2, Blood 37 mmol/L (21-32); Calcium, Blood 8.8 mg/dL (8.5-10.1); Chloride, Blood 104 mmol/L (98-108); Creatinine, Blood 0.93 mg/dL (0.40-1.00); Globulin, Blood 3.7 g/dL (2.2-4.0); Glomerular Filtration Rate >60 (60-); Glucose, Blood 103 mg/dL (70-99); Potassium, Blood 3.9 mmol/L (3.5-5.5); Sodium, Blood 147 mmol/L (136-145); Total Protein, Blood 7.1 g/dL (6.4-8.2)
--- NOTE | 2018-07-08 12:30 | NUR ---
PT ARRIVED TO ROOM FROM ER. PT ON BIPAP. 30% FIO2 RESP 20. PT HAS NICOTINE PATCH RT SHOULDER, FENTANYL PATCH RT ABDOMEN. PT UNABLE TO TALK WITH BIPAP. RT IN ROOM MANAGING SETUP. PT LUNGS COARSE MORE ON RT THAN LEFT. RESP LABORED. H/R VS STABLE NSR 80'S. WILL MONITOR. AND ADMIT. BED IN LOW POSITION,C ALL LITE IN REACH, CALLS APPROP
--- NOTE | 2018-07-08 13:30 | NUR ---
CALLED DR GOLDSTEIN. PT HAS FLIPPED TO A-FLUTTER RATE 140-150. START CARDIZEM DRIP AT 5 MG /HR. NO BOLUS.
--- NOTE | 2018-07-08 16:17 | NUR ---
pt fatigued and tearfull. She did not take AM meds. She has difficulty recalling some of the past conversations due to her fatigue and forgetfull ness. Gave her reassurance and reviewed the plan fo CT and she will call her family. Suggest her son be part of conversation when plan is made. She has expressed to staff that she would now take hospice. pt has been still smoking and anexiety king been increasing. offered to get chaplian or stay she stated she was ok and wanted to rest. She feels safe here. If she get short of breath or anxious she knows we will come right away. Promoted rest and comfort and sharing her stress with her son so he can help her. She has been more protecitve of not bothering him in the past.
--- NOTE | 2018-07-08 16:21 | NUR ---
Will address polst after diagnostics.
--- NOTE | 2018-07-08 17:58 | NUR ---
PT H/R HAS BEEN RUNNING 120-150 THIS AFT. AVERAGING 120'S. CARDIZEM DRIP AT 5/HR. PT HAS JUST DROPPED TO 70 FOR A FEW MOMENTS, THEN BACK TO 120'S. CONTINUE TO MONITOR AT TELE.
--- NOTE | 2018-07-08 18:24 | NUR ---
PT PLEASANT LATER THIS SHIFT. SHE WAS IN DISTRESS WITH BEING ON BIPAP WHEN ARRIVED. BY TIME TOOK BIPAP OFF LATER IN SHIFT , WAS ABLE TO RELAX. NOW ON 2L N/C DOING WELL AT 92+%. PT REPORTS FEELS BETTER. MANY VOIDS TO BSC. SBA TO MANAGE LINES. CONTINUES ON 5 MG / HR ON CARDIZEM. HEART HAS RECENTLY BEEN BOUNCING FROM AFIB TO NSR LATER THIS SHIFT. EXPECTING TO FULLY CONVERT SOON. TELE MONITOR IS WATCHING. WILL REPORT TO NITE SHIFT. BED IN LOW POSITION, ,CALL LITE IN REACH, CALLS APPROP
[2018-07-09 02:52] LABS: BASOPHILS ABSOLUTE AUTO 0.01 K/mm3 (0.00-0.23); BASOPHILS PERCENT AUTO 0 % (0-2); EOSINOPHILS ABSOLUTE AUTO 0.01 K/mm3 (0.00-0.68); EOSINOPHILS PERCENT AUTO 0 % (0-6); Hematocrit 34.6 % (33.0-51.0); Hemoglobin 10.6 g/dL (11.5-16.0); IMMATURE GRAN ABSOLUTE AUTO 0.02 K/mm3 (0.00-0.10); IMMATURE GRAN PERCENT AUTO 0 % (0-1); LYMPHOCYTES ABSOLUTE AUTO 0.91 K/mm3 (0.84-5.20); LYMPHOCYTES PERCENT AUTO 9 % (21-46); MONOCYTES ABSOLUTE AUTO 0.79 K/mm3 (0.16-1.47); MONOCYTES PERCENT AUTO 8 % (4-13); Mean Corpuscular HGB 30.4 pg (26.0-34.0); Mean Corpuscular HGB Conc 30.6 g/dL (31.5-36.5); Mean Platelet Volume 10.5 fL (9.1-12.4); NEUTROPHILS ABSOLUTE AUTO 8.18 K/mm3 (1.96-9.15); NEUTROPHILS PERCENT AUTO 82 % (41-73); Platelet Count 188 K/mm3 (150-400); RDW Coefficient Variation 14.8 % (11.7-14.2); RDW Standard Deviation 54.3 fL (35.1-46.3); Red Blood Cell Count 3.49 M/mm3 (3.80-5.20); White Blood Cell Count 9.92 K/mm3 (4.00-11.30)
[2018-07-09 02:54] LABS: Mean Corpuscular Volume 99 fL (80-100)
[2018-07-09 03:11] LABS: Alanine Aminotransfer (ALT/SGP 92 U/L (12-78); Alk Phos 59 U/L (50-136); Anion Gap 6 mmol/L (6-16); Aspartate Aminotrans (AST/SGOT 20 U/L (12-37); Bilirubin, Total 0.4 mg/dL (0.1-1.0); Blood Urea Nitrogen 23 mg/dL (8-24); Bun/Creatinine Ratio 31.8 (12.0-20.0); CO2, Blood 38 mmol/L (21-32); Calcium, Blood 8.3 mg/dL (8.5-10.1); Chloride, Blood 98 mmol/L (98-108); Creatinine, Blood 0.72 mg/dL (0.40-1.00); Globulin, Blood 3.1 g/dL (2.2-4.0); Glomerular Filtration Rate >60 (60-); Glucose, Blood 94 mg/dL (70-99); Magnesium, Blood 2.1 mg/dL (1.6-2.4); Potassium, Blood 3.4 mmol/L (3.5-5.5); Sodium, Blood 142 mmol/L (136-145); Total Protein, Blood 6.1 g/dL (6.4-8.2)
--- NOTE | 2018-07-09 07:40 | NUR ---
BEGINING SHIFT NOTE PT A&O. REPORTS FEELING ANXIOUS AND REPORTS PAIN 9/10 GENERALIZED AND ABD, MEDICATED PER EMAR. ASSESSMENT COMPLETED, SEE DETAILED ASSESSMENT. TELE NSR IN 60'S, PER TUBULAR RIVETER. VSS. WILL CONTINUE TO MONITOR.
--- NOTE | 2018-07-09 10:01 | NUR ---
DR GOLDSTEIN AT BEDSIDE, NEW ORDERS TO ADVANCE DIET TO CARDIAC/HEART HEALTH.
--- NOTE | 2018-07-09 11:56 | NUR ---
NOTIFIED DR GOLDSTEIN OF BP 101/44 AND HR 63 PRIOR TO ADMINISTERING CARDIZEM, PER DR GOLDSTEIN CONTINUE WITH ADMINISTERING SCHEDULED MEDICATIONS. WILL CONTINUE TO MONITOR.
--- NOTE | 2018-07-09 14:36 | NUR ---
PT C/O NEW ONSET CHEST PAIN/PRESSURE IN THE CENTER OF THE CHEST, REPORTING 9/10 PAIN/PRESSURE. PT LYING IN BED, VSS. NOTIFIED DR GOLDSTEIN, NEW ORDERS FOR STAT EKG AND 0.4 MG NITRO SL NOW. WHEN THIS RN ENTERED ROOM WITH NITRO THE PT REPORTS SHE SAT UP AND STARTED BELCHING WHICH RELEIVED THE PAIN/PRESSURE IN CHEST. DR GOLDSTEIN NOTIFIED, EKG AND NITRO D/C PER TELEPHONE ORDER. WILL CONTINUE TO MONITOR.
--- NOTE | 2018-07-09 15:37 | NUR ---
PT RESTINGIN BED, APPEARS TO BE SLEEPING. BREATHING IS EVEN AND UNLABORED. WILL CONTINUE TO MONITOR.
--- NOTE | 2018-07-09 17:35 | NUR ---
SHIFT SUMMARY PT A&OX4. PT REPORTS FEELING ANXIOUS, MEDICATED x2 WITH ATIVAN. PT COOPERATIVE WITH CARE. PT RESTING IN BED DURING SHIFT. IND TO BSC, SBA IN ROOM. PT SATS >95% ON 2L O2 VIA NC, WHICH SHE WEARS AT HOME, LS WHEEZES T/O. PT REPORTS PAIN IN ABD AND GENERALIZED MEDICATED x2 WITH NORCO WITH POSITIVE RESULTS. PT REPORTS CHEST PAIN THIS AFTERNOON, RESOLVED WITH BELCHING, DR GOLDSTEIN NOTIFIED. PT RECEIVING IV LASIX AND TRANSITIONED TO PO CARDIZEM. TELE NSR IN 60'S T/O SHIFT. VSS. PT TRANSITIONED FROM CLEAR LIQUIDS TO CARDIAC DIET, APPEARS TO BE TOLERATING WELL. NO OTHER ACUTE CHANGES NOTED DURING SHIFT. WILL CONTINUE TO MONITOR UNTIL REPORT GIVEN TO ONCOMING RN.
--- NOTE | 2018-07-09 19:45 | NUR ---
ASSUMED CARE OF PT, REPORT RECIEVED, PT IS ALERT AND RECLINING IN BED WATCHING TV. DENIES N/V, DENIES CP/PRESSURE, DENIES NUMBNESS/TINGLING BEYOND BASELINE, ADMITS TO PAIN 8/10, REQUESTS PAIN MEDS WHEN NEXT AVAILABLE. LUNGS WITH WHEEZES SCATTERED THROUGHOUT, MAINTAINING SATS WITH OXYGEN AT 2 L/MIN VIA NC WHICH IS PT'S HOME FLOW RATE. UDN IN PROGRESS DURING ASSESSMENT AND RT AT BEDSIDE. PT REQUESTS TO KNOW WHEN NEXT ATIVAN IS AVAILABLE, 0030 NEXT AVAILABLE DOSE, PT IS AGREEABLE TO THIS. WILL CONT TO MONITOR.
[2018-07-10 04:01] LABS: BASOPHILS ABSOLUTE AUTO 0.02 K/mm3 (0.00-0.23); BASOPHILS PERCENT AUTO 0 % (0-2); EOSINOPHILS ABSOLUTE AUTO 0.19 K/mm3 (0.00-0.68); EOSINOPHILS PERCENT AUTO 3 % (0-6); Hematocrit 32.3 % (33.0-51.0); IMMATURE GRAN ABSOLUTE AUTO 0.03 K/mm3 (0.00-0.10); IMMATURE GRAN PERCENT AUTO 0 % (0-1); LYMPHOCYTES ABSOLUTE AUTO 1.95 K/mm3 (0.84-5.20); LYMPHOCYTES PERCENT AUTO 27 % (21-46); MONOCYTES ABSOLUTE AUTO 0.71 K/mm3 (0.16-1.47); MONOCYTES PERCENT AUTO 10 % (4-13); Mean Corpuscular HGB 30.5 pg (26.0-34.0); Mean Corpuscular Volume 99 fL (80-100); Mean Platelet Volume 10.5 fL (9.1-12.4); NEUTROPHILS ABSOLUTE AUTO 4.39 K/mm3 (1.96-9.15); NEUTROPHILS PERCENT AUTO 60 % (41-73); Platelet Count 188 K/mm3 (150-400); RDW Coefficient Variation 14.7 % (11.7-14.2); RDW Standard Deviation 53.1 fL (35.1-46.3); Red Blood Cell Count 3.28 M/mm3 (3.80-5.20); White Blood Cell Count 7.29 K/mm3 (4.00-11.30)
[2018-07-10 04:21] LABS: Alanine Aminotransfer (ALT/SGP 69 U/L (12-78); Albumin, Blood 2.7 g/dL (3.4-5.0); Alk Phos 47 U/L (50-136); Anion Gap 3 mmol/L (6-16); Aspartate Aminotrans (AST/SGOT 18 U/L (12-37); Bilirubin, Total 0.3 mg/dL (0.1-1.0); Blood Urea Nitrogen 30 mg/dL (8-24); CO2, Blood 41 mmol/L (21-32); Calcium, Blood 8.4 mg/dL (8.5-10.1); Chloride, Blood 99 mmol/L (98-108); Creatinine, Blood 0.86 mg/dL (0.40-1.00); Globulin, Blood 2.8 g/dL (2.2-4.0); Glomerular Filtration Rate >60 (60-); Glucose, Blood 76 mg/dL (70-99); Potassium, Blood 3.6 mmol/L (3.5-5.5); Sodium, Blood 143 mmol/L (136-145); Total Protein, Blood 5.5 g/dL (6.4-8.2)
--- NOTE | 2018-07-10 06:02 | NUR ---
PT RESTS QUIETLY THROUGHOUT SHIFT, ATIVAN ADMIN X 1 PER PT REQUEST AND PAIN MEDICATION ADMIN X 2. CONTINUES UP TO VOID IN BSC IND, TOLERATING PO INTAKE, OXYGEN REMAINS AT HOME FLOW RATE OF 2 L/MIN VIA NC.
--- NOTE | 2018-07-10 14:45 | NUR ---
Spiritual care visit conducted. Patient was sitting up in bed holding a vomit bag but welcomed me into the room after I introduced myself. Patient said that she couldn't really talk because she feels like she cries everytime she talks about something important to her and everything seems is important today. So, I asked her if I could pray for her and she said that that would be nice. I prayed for her and she wept. When I was done praying she said that she was just too raw and asked if I could come back tomorrow. I agreed to this request.
--- NOTE | 2018-07-10 17:52 | NUR ---
SHIFT SUMMARY PT RESTING IN BED THROUGHOUT THE DAY. VSS. ALERT AND ORIENTED X3. LUNG SOUNDS INSPIRATORY / EXPIRATORY WHEEZES THROUGHOUT, DYSPNEA ON EXERTION. NSR RATE 69 PER TELE. UP TO BATHROOM WHEN STAFF IN ROOM AND TOLERATING WELL. C/O PAIN TO ABDOMEN 6-03/29, MEDICATED WITH PRN PAIN MEDS. C/O RIGHT LEG NUMBNESS, STATES THAT IS NORMAL. PT STABLE FOR TRANSFER TO MEDICAL FLOOR. REPORT CALLED TO JONATHAN ALFONSO. PT TO BE TRANSFERED TO MEDICAL FLOOR VIA WHEELCHAIR.
--- NOTE | 2018-07-10 19:56 | NUR ---
SHIFT SUMMARY PT ARRIVED TO THE ROOM FROM PCU AT APPROXIMATELY 1820. PT ALERT AND ORIENTED. DENIES PAIN. REPORT GIVEN TO DONNA ALFONSO.
--- NOTE | 2018-07-11 04:49 | NUR ---
07/11/18 0445 AWAKENED FOR LABS AND MEDICATED FOR ABD./GROIN DISCOMFORT PER AUG. ASSISTED TO BATHROOM FOR QS VOIDING. SLEPT ON AND OFF THIS SHIFT. UNEVENTFUL NIGHT.
[2018-07-11 05:03] LABS: BASOPHILS ABSOLUTE AUTO 0.02 K/mm3 (0.00-0.23); BASOPHILS PERCENT AUTO 0 % (0-2); EOSINOPHILS ABSOLUTE AUTO 0.28 K/mm3 (0.00-0.68); EOSINOPHILS PERCENT AUTO 4 % (0-6); Hematocrit 40.8 % (33.0-51.0); Hemoglobin 12.3 g/dL (11.5-16.0); IMMATURE GRAN ABSOLUTE AUTO 0.03 K/mm3 (0.00-0.10); IMMATURE GRAN PERCENT AUTO 0 % (0-1); LYMPHOCYTES ABSOLUTE AUTO 1.89 K/mm3 (0.84-5.20); LYMPHOCYTES PERCENT AUTO 26 % (21-46); MONOCYTES ABSOLUTE AUTO 0.86 K/mm3 (0.16-1.47); MONOCYTES PERCENT AUTO 12 % (4-13); Mean Corpuscular HGB 29.7 pg (26.0-34.0); Mean Corpuscular HGB Conc 30.1 g/dL (31.5-36.5); Mean Corpuscular Volume 99 fL (80-100); Mean Platelet Volume 10.2 fL (9.1-12.4); NEUTROPHILS ABSOLUTE AUTO 4.21 K/mm3 (1.96-9.15); NEUTROPHILS PERCENT AUTO 58 % (41-73); Platelet Count 212 K/mm3 (150-400); RDW Coefficient Variation 14.5 % (11.7-14.2); RDW Standard Deviation 52.3 fL (35.1-46.3); Red Blood Cell Count 4.14 M/mm3 (3.80-5.20); White Blood Cell Count 7.29 K/mm3 (4.00-11.30)
[2018-07-11 05:37] LABS: Alanine Aminotransfer (ALT/SGP 58 U/L (12-78); Albumin, Blood 3.2 g/dL (3.4-5.0); Albumin/Globulin Ratio 0.9 (0.8-1.8); Alk Phos 58 U/L (50-136); Anion Gap 6 mmol/L (6-16); Aspartate Aminotrans (AST/SGOT 10 U/L (12-37); Bilirubin, Total 0.4 mg/dL (0.1-1.0); Blood Urea Nitrogen 27 mg/dL (8-24); Bun/Creatinine Ratio 29.8 (12.0-20.0); CO2, Blood 37 mmol/L (21-32); Calcium, Blood 8.6 mg/dL (8.5-10.1); Chloride, Blood 99 mmol/L (98-108); Creatinine, Blood 0.91 mg/dL (0.40-1.00); Globulin, Blood 3.7 g/dL (2.2-4.0); Glomerular Filtration Rate >60 (60-); Glucose, Blood 73 mg/dL (70-99); Potassium, Blood 3.5 mmol/L (3.5-5.5); Sodium, Blood 142 mmol/L (136-145); Total Protein, Blood 6.9 g/dL (6.4-8.2)
--- NOTE | 2018-07-11 10:49 | NUR ---
Spiritual care visit conducted. Patient was resting in bed after her physical therapy and was in a much better place emotionally compared to my visit on the prior visit to the one of the entry. Patient allowed for some establishment of therapeutic alliance and shared some of the family unit complications, her concerns about placement, her privacy surrounding spiritual issues and why she feels this way. I listened empathically, explored spiritual beliefs, encouraged self-care and provided prayer. Patient responded well to all interventions and even yelled a "Thank you, Lord" after the prayer. Patient expressed gratitude for the visit and showed signs of elevated mood.
--- NOTE | 2018-07-11 14:38 | NUR ---
PT gave verbal consent for me to treat tomorrow (07/12/2018).
--- NOTE | 2018-07-11 15:39 | NUR ---
Pt visit this afternoon. Pt reports feeling good and her breathing has improved. Engaged in therapeutic conversation about her goals of care. Pt reports that she is not ready for hospice at this time. Discussed POLST on file and she reports the current POLST does not reflect her current wishes. Provided new POLST for Pt to complete and educated her on each section. Pt completed new POLST. Pt reports no other concerns at this time. Spoke with Pt's nurse Rolando and he reports no concerns. Called and spoke with Dr Vasquez and reported Pt completed new POLST. She reports that she will sign POLST tomorrow when she make her rounds. Will remain available.
--- NOTE | 2018-07-11 18:40 | NUR ---
SHIFT SUMMARY. A&OX3, INDEPENDENT TO BSC. PT REPORTS BREATHING HAS IMPROVED, CONTINUES WITH O2 2L NC. LUNGES WITH MILD WHEEZING T/O, NO CRACKLES. CONTINUES WITH DAILY IV LASIX. PT WITH POOR APPETITE MOST OF THE SHIFT, PT WAS ABLE TO EAT MOST OF DINNER AND ENSURE. PT CONTINUES WITH PAIN TO ABD MANAGED WELL WITH CURRENT ORDERS. PT C/O ANXIETY ONCE, RESOLVED WITH ONE DOSE OF PO ATIVAN. NO OTHER CHANGES.
--- NOTE | 2018-07-12 04:55 | NUR ---
07/12/18 0445 PT C/O NOT GETTING REST/SLEEP WITH PAIN LEVEL AT "10". TOO SOON FOR MEDS BUT RN PAGED MD AND NOW DOSE OF PAIN AND ANXIETY MEDS ORDERED AND GIVEN.
--- NOTE | 2018-07-12 17:23 | NUR ---
SHIFT SUMMARY MEDICATED FOR PAIN X2 AND X1 FOR ANXIETY THIS SHIFT. PT HAD AN EPISODE OF NAUSEA/VOMITING THIS AM AND ZOFRAN GIVEN PER EMAR. PT DID NAP THIS AFTERNOON. NO ACUTE CHANGES THIS SHIFT. CALL LIGHT IN REACH. WILL CONTINUE TO MONITOR AND REPORT TO ONCOMING RN.
--- NOTE | 2018-07-13 04:57 | NUR ---
SHIFT SUMMARY: PT IS ALERT WITH MILD CONFUSION, SLIGHTLY LETHARGIC. PT IS COOPERATIVE WITH CARE. PT CALLS APPROPRIATELY. PT IS A ONE PERSON ASSIST. PT REPORTS LOW ABD PAIN, MEDICATING PER EMAR. PT REPORTS ANXIETY, GAVE PRN ATIVAN. PT DENIES NAUSEA AND VOMITING. PT SLEPT MUCH OF THE NIGHT. PT ON 2 L O2 WITH CONTINUOUS OXIMETRY, WILL DESATURATE IF SHE REMOVES THE OXYGEN. NO ACUTE CHANGES OR COMPLICATIONS THIS SHIFT.
[2018-07-13 09:42] LABS: BASOPHILS ABSOLUTE AUTO 0.02 K/mm3 (0.00-0.23); BASOPHILS PERCENT AUTO 0 % (0-2); EOSINOPHILS ABSOLUTE AUTO 0.14 K/mm3 (0.00-0.68); EOSINOPHILS PERCENT AUTO 2 % (0-6); Hemoglobin 11.9 g/dL (11.5-16.0); IMMATURE GRAN ABSOLUTE AUTO 0.05 K/mm3 (0.00-0.10); IMMATURE GRAN PERCENT AUTO 1 % (0-1); LYMPHOCYTES ABSOLUTE AUTO 1.26 K/mm3 (0.84-5.20); LYMPHOCYTES PERCENT AUTO 15 % (21-46); MONOCYTES ABSOLUTE AUTO 0.87 K/mm3 (0.16-1.47); MONOCYTES PERCENT AUTO 10 % (4-13); Mean Corpuscular HGB 30.2 pg (26.0-34.0); Mean Corpuscular HGB Conc 31.3 g/dL (31.5-36.5); Mean Platelet Volume 10.5 fL (9.1-12.4); NEUTROPHILS ABSOLUTE AUTO 6.23 K/mm3 (1.96-9.15); NEUTROPHILS PERCENT AUTO 73 % (41-73); Platelet Count 173 K/mm3 (150-400); RDW Coefficient Variation 14.2 % (11.7-14.2); RDW Standard Deviation 50.1 fL (35.1-46.3); Red Blood Cell Count 3.94 M/mm3 (3.80-5.20); White Blood Cell Count 8.57 K/mm3 (4.00-11.30)
[2018-07-13 09:44] LABS: Mean Corpuscular Volume 96 fL (80-100)
[2018-07-13 10:01] LABS: Albumin, Blood 3.2 g/dL (3.4-5.0); Albumin/Globulin Ratio 0.9 (0.8-1.8); Bilirubin, Total 0.7 mg/dL (0.1-1.0); Bun/Creatinine Ratio 27.5 (12.0-20.0); Calcium, Blood 8.6 mg/dL (8.5-10.1); Creatinine, Blood 1.09 mg/dL (0.40-1.00); Globulin, Blood 3.5 g/dL (2.2-4.0); Potassium, Blood 3.9 mmol/L (3.5-5.5); Total Protein, Blood 6.7 g/dL (6.4-8.2)
[2018-07-13 10:25] LABS: Source, Urine Clean Catch
[2018-07-13 10:29] LABS: Appearance, Urine Clear (Clear); Bilirubin, Urine Neg (Neg); Blood, Urine 1+ (Neg); Color, Urine Yellow (P-Yellow); Glucose Qualitative, Urine Neg (Neg); Ketones, Urine Neg (Neg); Leukocyte Esterase, Urine Neg (Neg); Nitrite, Urine Neg (Neg); Protein, Urine 2+ (Neg); Specific Gravity, Urine 1.015 (1.003-1.022); Urobilinogen, Urine NORM (Normal)
[2018-07-13 10:58] LABS: White Blood Cells, Urine 0-2 /hpf (0-5)
[2018-07-13 10:59] LABS: Bacteria Not Seen /hpf; Red Blood Cells, Urine 0-2 /hpf (0-2); Squamous Epithelial Cells Mod /hpf (Few)
--- NOTE | 2018-07-13 13:04 | NUR ---
Pt visit this AM. Received report from Respiratory Therapy (Carl) that Pt is considering hospice. Arrived at Pt's room and discussed this with Pt. Pt reports that she is not ready for hospice and wants to continue treatment. She reports no conerns at this time. Spoke with Pt's nurse Flora and she reports the Pt has been experiencing increased confusion and increased temperature. Will remain available.
--- NOTE | 2018-07-13 13:33 | NUR ---
HYPOTENSION PT'S BP WAS 85/40 WITH HR 70 AT 1215 AND WAS RECHECKED AT 1315 AND NOW BP 79/41 WITH HR 65. PT SLEEPING BUT DOES AWAKEN WHEN NAME IS CALLED. THIS RN CALLED DR. DEAL AND DISCUSSED PT'S BLOOD PRESSURE. NEW ORDERS FOR A 500ML BOLUS TO BE GIVEN. DR. DEAL NOTIFIED THAT PT'S RHYTHM NOW NORMAL SINUS RHYTHM FROM A FLUTTER. [facility] CALLED THIS RN AT 1310 AND REPORTED PT HAD CONVERTED TO NSR AN HOUR BEFORE WITH RATE IN 60'S. WILL CONTINUE TO MONITOR PT'S BLOOD PRESSURE. CALL LIGHT IN REACH.
--- NOTE | 2018-07-13 13:40 | NUR ---
FEVER/HEART RATE IN AM PT HAD A TEMPERATURE OF 102.9 AND WAS NEW FOR THIS PT. THIS RN CALLED DR. DEAL AND NOTIFIED HER OF THIS. DR. DEAL PLACED NEW ORDERS. SEE PHYSICIAN ORDERS. THIS RN ADMINISTERED TYLENOL AT [address] DEAL ORDERS. PT'S TEMPERATURE DECREASED TO 97.2 WHEN CHECKED AT 1109. PT'S HEART RATE ALSO BECAME ELEVATED AT 0940 AND WAS RUNNING BETWEEN 120-165. RHYTHM DID NOT SOUND IRREGULAR AND PT WAS ASYMPTOMATIC. THIS RN TALKED WITH DR. DEAL ABOUT THIS AND TELE WAS ORDERED AND PLACED. PT IN A-FLUTTER IN 80'S WHEN TELE WAS PLACED.
--- NOTE | 2018-07-13 18:29 | NUR ---
SHIFT SUMMARY PT HAS HAD HYPOTENSION THROUGH OUT THE SHIFT. IV 500 ML BOLUS ADMINISTERED THIS AFTERNOON AND PT'S SBP IN 90'S FROM 79. DR. GOLDSTEIN AWARE THAT PT'S BP CONTINUES TO BE IN 90'S. PT WAS VERY CONFUSED THIS AM WITH A FEVER OF 102.9. TYLENOL GIVEN AND TEMPERATURE CAME DOWN. PT HAS NOT HAD A FEVER SINCE. PT'S HR WAS ALSO ELEVATED 120-160'S. TELE WAS PLACED AND PT'S HEART RATE DECREASED TO 80'S AND IN AFLUTTER. PT DID CONVERT TO NSR IN 60'S LATER IN THE AFTERNOON AND CONTINUES TO BE IN NSR. PT HAS BEEN SLEEPING ALL AFTERNOON UNLESS AWOKEN BY STAFF. NO ACUTE CHANGES THIS EVENING. WILL CONTINUE TO MONITOR AND REPORT TO ONCOMING RN. CALL LIGHT IN REACH.
--- NOTE | 2018-07-14 05:29 | NUR ---
SHIFT SUMMARY: PT IS ALERT AND ORIENTED WITH MINOR INTERMITTENT CONFUSION. PT IS ANXIOUS AT TIMES, MEDICATING WITH PRN ATIVAN, SHE IS COOPERATIVE WITH CARE. PT CALLS APPROPRIATELY. PT IS UP INDEPENDENTLY TO THE BSC. PT REPORTS LOWER ABD / GROIN PAIN, MEDICATING PER EMAR. PT DENIES NAUSEA, VOMITING, AND SOB. PT HAVE FEVER THIS AM, GAVE PRN TYLENOL. NO ACUTE CHANGES OR COMPLICATIONS OVERNIGHT. WILL REPORT TO DAY NURSE.
--- NOTE | 2018-07-14 13:37 | NUR ---
Spiritual care visit conducted. Patient was sitting up in bed but hunched over. I entered the room and patient said that she was feeling sick to her stomach and was not up for much comversation. Patient is known to me from prior visits in the hospital. I asked patient if I could pray for her and she said, "Yes." As I began praying the patient said, "Amen" rather loudly and so I concluded my prayer rather abruptly and began to leave. She asked me to continue praying and explained that she was just agreeing with what I said in the prayer. I continued praying with the verbal support of the patient. When I finished she thanked me and said that she appreciated the prayer and stated that it was helpful. Patient explained that she had received a shot of something to help with her pain and nausea and believed that she would be feeling better soon.
--- NOTE | 2018-07-14 17:50 | NUR ---
SUMMARY PT SITTING UP IN BED EATING HER DINNER AND WATCHING TV, PT HAS BEEN PLEASANT AND COOPERATIVE WITH CARE, PT MED PER EMAR FOR PAIN AND NAUSEA, PT STATES SHE FEELS LIKE THE FOOD DOES NOT WANT TO GO DOWN, UPPER GI TO BE DONE IN THE AM, PT TO BE NPO AFTER MIDNIGHT, SHE IS AWARE, VSS, NO ACUTE CHANGES, WILL CONT TO MONITOR
--- NOTE | 2018-07-14 21:21 | NUR ---
PER TELE MONITOR IVETTE, PT'S HEARTRATE NOW IN THE ONE TEENS TO 120'S.
--- NOTE | 2018-07-14 21:53 | NUR ---
PER TELE MONITOR IVETTE, HEART RATE NOW IN 80'S TO LOW ONE HUNDREDS.
[2018-07-15 05:03] LABS: BASOPHILS ABSOLUTE AUTO 0.02 K/mm3 (0.00-0.23); BASOPHILS PERCENT AUTO 0 % (0-2); EOSINOPHILS ABSOLUTE AUTO 0.22 K/mm3 (0.00-0.68); EOSINOPHILS PERCENT AUTO 4 % (0-6); Hematocrit 39.6 % (33.0-51.0); Hemoglobin 11.5 g/dL (11.5-16.0); IMMATURE GRAN ABSOLUTE AUTO 0.02 K/mm3 (0.00-0.10); IMMATURE GRAN PERCENT AUTO 0 % (0-1); LYMPHOCYTES ABSOLUTE AUTO 1.35 K/mm3 (0.84-5.20); LYMPHOCYTES PERCENT AUTO 25 % (21-46); MONOCYTES ABSOLUTE AUTO 0.89 K/mm3 (0.16-1.47); MONOCYTES PERCENT AUTO 16 % (4-13); Mean Platelet Volume 10.7 fL (9.1-12.4); NEUTROPHILS ABSOLUTE AUTO 2.96 K/mm3 (1.96-9.15); NEUTROPHILS PERCENT AUTO 54 % (41-73); Platelet Count 128 K/mm3 (150-400); RDW Coefficient Variation 14.2 % (11.7-14.2); RDW Standard Deviation 51.6 fL (35.1-46.3); Red Blood Cell Count 3.97 M/mm3 (3.80-5.20); White Blood Cell Count 5.46 K/mm3 (4.00-11.30)
[2018-07-15 05:05] LABS: Mean Corpuscular Volume 100 fL (80-100)
[2018-07-15 05:18] LABS: Albumin, Blood 2.8 g/dL (3.4-5.0); Albumin/Globulin Ratio 0.7 (0.8-1.8); Bilirubin, Total 0.4 mg/dL (0.1-1.0); Bun/Creatinine Ratio 29.5 (12.0-20.0); Calcium, Blood 8.7 mg/dL (8.5-10.1); Creatinine, Blood 1.12 mg/dL (0.40-1.00); Globulin, Blood 3.9 g/dL (2.2-4.0); Magnesium, Blood 2.4 mg/dL (1.6-2.4); Total Protein, Blood 6.7 g/dL (6.4-8.2)
--- NOTE | 2018-07-15 05:54 | NUR ---
pt with hx of breast cancer 2001 with lt breast mastectomy with lymph node dissection and ovarian cancer known with mets to lungs and stated other sites continues on tele monitor with afib aflutter rvr with rete 120s to 160s sustained despite carizem 30 mg po and metoperol [address] CASILLAS updated on hypotension and 500 ml ns fluid bolus give. pt converted back to nsr at 0050. with rates in 60s to 70s. up with sba to BSC several times. continues to desire full code despite advanced metastatic ovarian cancer. lt groin site painful as pt saus she has tumor at site. talkative discussing cancer history and family hx BRACCA gene. copd with sats greater than 92% on 2 l nc
--- NOTE | 2018-07-15 18:44 | NUR ---
PT. HAS BEEN IN BED ALL DAY EXCEPT TO USE THE BATHROOM. BLOOD PRESSURE AND CARDIAC MEDS HELD THIS MORNING PER DR. GOLDSTEIN R/T HYPOTENSION AND BRADYCARDIA. CARDIZEM 30 MG PO GIVEN THIS AFTERNOON. VSS AT THIS TIME. NO OTHER NOTEABLE CHANGES THIS SHIFT. SWALLOW EVAL WILL NOT BE DONE UNTIL TUESDAY R/T STAFFING.
--- NOTE | 2018-07-16 05:19 | NUR ---
PT HAS ACUTE AND CHRONIC PAIN AND ANXIETY. AWARE OF OVARIAN CANCER WITH MEDS AND PAIN IS RELATED TO OVARIAN MASS AND METS. MEDICATED X 2 WITH PERCOCET 10/325 MG TAB AND ATIVAN 0.5 MG TAB X 2 WITH HELPFUL EFFECT. PT CONTINUES ON OXYGEN 2 L NC WITH SATS IN THE HIGH 90S. SHORT OF BREATH WITH ANY EXERTION. CONTINUES TO DESIRE FULL CODE WITH POLST THIS VISIT IN FRONT OF CHART. HAS BEEN IN NORMAL SINUS ALL NIGHT RATE 70S. BP WAS ELEVATED AFTER GETTING UP TO BEDSIDE COMMODE THIS AM. RECHECKING BP AFTER REST AND PAIN MED. WAS SLIGHTLY LOWER WITH MULTIPLE CARDIAC RX SCHEDULED FOR THIS AM.
[2018-07-16 05:50] LABS: Anion Gap 5 mmol/L (6-16); Blood Urea Nitrogen 26 mg/dL (8-24); CO2, Blood 36 mmol/L (21-32); Calcium, Blood 8.7 mg/dL (8.5-10.1); Chloride, Blood 101 mmol/L (98-108); Creatinine, Blood 0.87 mg/dL (0.40-1.00); Glomerular Filtration Rate >60 (60-); Glucose, Blood 77 mg/dL (70-99); Potassium, Blood 4.2 mmol/L (3.5-5.5); Sodium, Blood 142 mmol/L (136-145)
--- NOTE | 2018-07-16 19:00 | NUR ---
PT. TALKING ON PHONE NO NOTEABLE CGHANGES THIS SHIFT.
--- NOTE | 2018-07-17 05:42 | NUR ---
PT CONTINUES PAINFUL FROM OVARIAN CANCER WITH METS. PT RATES PAIN LT GROIN 9 OF 10 OR 10 OF 10 AND SAYS SHE HOPES SHE CAN SEE ONCOLOGY TO DISCUSS PALLATIVE OPTIONS FOR PAIN CONTROL. MILD ANXIETY RELIEVED BY 0.5 MG ATIVAN BUT SHE TAKES IT MORE FREQUENTLY AT HOME FOR AIR HUNGAR AND ANXIETY. PT SAYS SHE HAS SUPPORTIVE BROTHERS FOR DC PLAN LIVE NEXT DOOR.
--- NOTE | 2018-07-17 18:11 | NUR ---
PATIENT A/OX4, UP WITH 1 ASSIST TO RESTROOM. HAD UPPER GI STUDY TODAY, CONTINUES WITH POOR APPETITE. VSS. TAKES PILLS WHOLE WITH WATER. PERCOCET FOR PAIN PRN. 2LO2 TO MAINTAIN SATS. CALLS APPROPRIATELY FOR ASSISTANCE. NO ACUTE CHANGES THIS SHIFT.
[2018-07-18 05:45] LABS: Anion Gap 6 mmol/L (6-16); Blood Urea Nitrogen 27 mg/dL (8-24); Bun/Creatinine Ratio 30.8 (12.0-20.0); CO2, Blood 32 mmol/L (21-32); Calcium, Blood 8.7 mg/dL (8.5-10.1); Chloride, Blood 104 mmol/L (98-108); Creatinine, Blood 0.88 mg/dL (0.40-1.00); Glomerular Filtration Rate >60 (60-); Glucose, Blood 80 mg/dL (70-99); Potassium, Blood 4.6 mmol/L (3.5-5.5); Sodium, Blood 142 mmol/L (136-145)
--- NOTE | 2018-07-18 06:02 | NUR ---
SUMMARY: A/OX4, CALLS APPROPRIATELY AND INDEPENDENT TO BSC. PT KNOWS TO CALL FOR ASSIST FOR ANY DISTANCE. SHE BECOMES SLIGHTLY SOB AT TIMES W/EXERTION AND REMAINS ON 2L O2 VIA NC. PT RECIEVED OXYCODONE AND TYLENOL PRN FOR C/O L.SIDE AND LOWER ABDO PAIN, MILD IMPROVEMENT NOTED. SHE ALSO REQ'D ATIVAN PRN WHICH AIDED W/SLEEP. SHE REMAINS ON TELE: NSR AT 70'S-9O'S BPM. NO ACUTE CHANGES, VSS/AFEBRILE. WILL MONITOR AND REPORT TO DAY RN.
--- NOTE | 2018-07-18 09:16 | NUR ---
N/V POST BREAKFAST PT STATED TO VOMIT BROWN COLORED EMISIS, ZOFRAN WAS GIVEN WILL CONTINUE TO MONITOR FOR CHANGES
--- NOTE | 2018-07-18 11:58 | NUR ---
Spiritual care visit conducted. Patient was sitting up in bed with a vomit bag. Patient said that overall she was doing better but at the moment she was nauseous. We talked briefly about her status for placement in rehab., her struggle to rest and gain strength and her emotional/spiritual space. I listened empathically, I provided companionship and emotioanl support and reinforced helpful attitudes. Patient began vomitting and asked me for some privacy. I left at that time.
--- NOTE | 2018-07-18 18:57 | NUR ---
PT IS A/OX3, PLEASANT AND COOPERATIVE, THE PT IS UP WITH ASSIST, THE PT HAD A SHOWER TODAY, THE PT WAS MEDICATED FOR PAIN IN HER ABD AND BACK T/O THE DAY, THE PT VOMITED THIS AN BROWN COLORED EMISIS, THE PT WAS MEDICATED FOR NAUSEA, [facility] PHONE WAS CALLED EARLIER TODAY AND MESSAGE WAS LEFT FOR CONSULT, CALL LIGHT IN REACH, BED IN THE LOW POSITION
--- NOTE | 2018-07-18 20:16 | NUR ---
HERE TO CX W/NEW ORDERS PLACED FOR PT TO BE FULL LIQ DIET NOW THEN NPO EXCEPT ICE, WATER AND MEDS AFTER BREAKFAST AND THEN STRICT NPO AT 1400 FOR 1600 EGD.
--- NOTE | 2018-07-19 05:38 | NUR ---
SUMMARY: A/OX4, CALLS APPROPRIATELY AND INDEPENDENT TO BSC BUT SBA FOR DISTANCE. SHE HAS DENIED N/V BUT CONT'S TO REPORT L.GROIN/LOWER ABDO PAIN W/OXYCODONE RECIEVED FOR TOLERABLE CONTROL. SHE ALSO RECIEVED ATIVAN PRN AFTER AWAKING ANXIOUS FROM "[place]". PT TOLERATING PILLS W/WATER AND NO ISSUES SWALLOWING REPORTED. SHE REMAINS ON TELEMETRY IN NSR AT 70'S BPM. PT ALSO CONT'S ON HOME DOSE OF 2L O2 VIA NC. VERY FAINT WHEEZES HEARD W/RESP MEDS RECIEVED BY RT PER EMAR. CX'D THIS SHIFT AND RX'D FULL LIQ DIET THEN NPO EXCEPT MEDS, ICE AND WATER AFTER BREAKFAST AND THEN STRICT NPO AT 1400 FOR 1600 EGD. NO ACUTE CHANGES, VSS/AFEBRILE. WILL MONITOR AND REPORT TO DAY RN.
[2018-07-19 08:48] LABS: Anion Gap 5 mmol/L (6-16); Blood Urea Nitrogen 30 mg/dL (8-24); CO2, Blood 35 mmol/L (21-32); Calcium, Blood 9.2 mg/dL (8.5-10.1); Chloride, Blood 99 mmol/L (98-108); Creatinine, Blood 0.91 mg/dL (0.40-1.00); Glomerular Filtration Rate >60 (60-); Glucose, Blood 83 mg/dL (70-99); Phosphorus, Blood 3.3 mg/dL (2.5-4.9); Sodium, Blood 139 mmol/L (136-145)
--- NOTE | 2018-07-19 15:42 | NUR ---
FROM [facility] FLO[facility] TO [facility] VSS ADMISSION TO UNIT STARTED
--- NOTE | 2018-07-19 15:58 | NUR ---
07/19/18 1558 Roosevelt De Paz See Anesthesia record
--- NOTE | 2018-07-19 18:31 | NUR ---
PT IS A/OX3, PLEASANT AND COOPERATIVE, THE PT IS UP WITH STANDBY ASSIST, THE PT WAS MEDICATED FOR PAIN T/O THE DAY, THE PT WAS TAKEN TO DAY SURGERY TODAY AND UNDERWENT AN EGD WITH DILITATION AND TOLERATED THE PROCEDURE WELL, THE PT IS ON O2 AT THIS TIME AT 3L/MIN, REPORTED SOME DIFFICULTY BREATHING THIS EVENING, RT WAS CALLED FOR A BREATHING TX, PT WAS ALSO GIVEN ATIVAN AT THIS TIME, CALL LIGHT IN REACH WILL CONTINUE TO MONITOR AND ASSESS FOR CHANGES
--- NOTE | 2018-07-20 00:18 | NUR ---
PATIENT BP WAS 167/83. SCHEDULE PO LOPRESSOR 50 MG GIVEN. BP REASSESSED AT 138/76. CALL LIGHT IN REACH. BED IN LOWEST POSITION.
--- NOTE | 2018-07-20 03:58 | NUR ---
SHIFT SUMMARY PATIENT HAD NO ACUTE CHANGES OBSERVED THIS SHIFT. AXOX 3 AND SBA TO BS. PATIENT REPORTS ABDOMEN/GROIN PAIN AND RECEIVED OXYCODONE PER EMAR. ATIVAN GIVEN FOR ANXIETY PER EMAR X ONE. PIV REMAINS INTACT. PRINTED CIRCUIT LAYOUT TAPER REPORTS NSR 87. ON 3L O2 N/C. TAKES MEDICATION CRUSHED IN APPLE SAUCE. VSS/AFEBRILE. COOPERATIVE WITH CARE. CALL LIGHT IN REACH. BED IN LOWEST POSITION. WILL CONTINUE TO MONITOR UNTIL DAY SHIFT NURSE ASSUMES CARE.
[2018-07-20 05:47] LABS: Anion Gap 8 mmol/L (6-16); Blood Urea Nitrogen 29 mg/dL (8-24); Bun/Creatinine Ratio 30.2 (12.0-20.0); CO2, Blood 34 mmol/L (21-32); Chloride, Blood 99 mmol/L (98-108); Creatinine, Blood 0.96 mg/dL (0.40-1.00); Glomerular Filtration Rate >60 (60-); Glucose, Blood 78 mg/dL (70-99); Phosphorus, Blood 4.1 mg/dL (2.5-4.9); Potassium, Blood 4.2 mmol/L (3.5-5.5); Sodium, Blood 141 mmol/L (136-145)
--- NOTE | 2018-07-20 15:00 | NUR ---
will check with pt after DC to encourage follow up appointments. pt high risk for readmission. She struggles to to complete follow up care.
[2018-07-20] MEDS ORDERED: FURO20 PO (18:06)
--- NOTE | 2018-07-20 18:15 | NUR ---
PATIENT DISCHARGE: PATIENT DISCHARGED/ TRANSFERRED TO SNF ([facility]) THIS SHIFT. MEDICATION RECONCILIATION COMPLETED; MED LIST PROVIDED IN PACKET. REPORT CALLED TO ADRIAN AT [facility]. PATIENT DEPARTED MEDICAL FLOOR VIA WHEELCHAIR & STAFF ASSIST AT 1800. PATIENT DEPARTED [facility] VIA [facility].
== END 2018-07-20 17:54 | DRG 308 ==
LOC: ER 10:14 → PCU 11:21 → MEDS 11:21 → PCU 12:17 → MEDS 07-10 18:15
PROVIDERS: Emergency Medicine; Internal Medicine; Internal Medicine Gastroenterology; ADMIT Internal Medicine
PROC: 0D728ZZ Dilation of Middle Esophagus, Via Natural or Artificial Opening Endoscopic (ICD-10-PCS; 2018-07-19)
PROC: 0DC28ZZ Extirpation of Matter from Middle Esophagus, Via Natural or Artificial Opening Endoscopic (ICD-10-PCS; 2018-07-19)
PROC: 5A09357 Assistance with Respiratory Ventilation, Less than 24 Consecutive Hours, Continuous Positive Airway Pressure (ICD-10-PCS; principal; 2018-07-19 17:40)
DX: I48.0 Paroxysmal atrial fibrillation (principal); J96.01 Acute respiratory failure with hypoxia; J44.1 Chronic obstructive pulmonary disease with (acute) exacerbation; E44.0 Moderate protein-calorie malnutrition; Z68.1 Body mass index [BMI] 19.9 or less, adult; I50.42 Chronic combined systolic (congestive) and diastolic (congestive) heart failure; F41.9 Anxiety disorder, unspecified; Z87.891 Personal history of nicotine dependence; Z85.43 Personal history of malignant neoplasm of ovary; D72.829 Elevated white blood cell count, unspecified; E87.70 Fluid overload, unspecified; Z51.5 Encounter for palliative care; R13.10 Dysphagia, unspecified; K21.9 Gastro-esophageal reflux disease without esophagitis; K20.8 Other esophagitis; G89.4 Chronic pain syndrome; K44.9 Diaphragmatic hernia without obstruction or gangrene; K22.2 Esophageal obstruction; I11.0 Hypertensive heart disease with heart failure
CPT/HCPCS: 36415; 36600; 71045; 71046; 71260; 74177; 74246; 80048; 80053; 80069; 81001; 82803; 82947; 83735; 83880; 84484; 85025; 85651; 87040; 93005; 93010; 94640; 94660; 94667; 94760; 94762; 96374; 96375; 97110; 97116; 97162; 99285-25; C1726; J1650; J1940; J2060; J2405; J2930; J7030; J7120; J7626; Q9967

== ENCOUNTER 2018-08-02 21:53 | Inpatient (IN) | payer OTHER ==
[~2018-08-02] VITALS: Ht 154.9 cm; Wt 50.1 kg
[~2018-08-02 21:53] MED LIST changes: +FURO20 PO
[2018-08-02 22:07] LABS: PO2 Arterial 145 mmHg (80-100); pH Blood Arterial 7.35 (7.35-7.45)
[2018-08-02 22:17] LABS: BASOPHILS ABSOLUTE AUTO 0.09 K/mm3 (0.00-0.23); BASOPHILS PERCENT AUTO 1 % (0-2); EOSINOPHILS ABSOLUTE AUTO 0.52 K/mm3 (0.00-0.68); EOSINOPHILS PERCENT AUTO 3 % (0-6); Hemoglobin 13.5 g/dL (11.5-16.0); IMMATURE GRAN PERCENT AUTO 1 % (0-1); LYMPHOCYTES ABSOLUTE AUTO 4.99 K/mm3 (0.84-5.20); LYMPHOCYTES PERCENT AUTO 26 % (21-46); MONOCYTES ABSOLUTE AUTO 1.12 K/mm3 (0.16-1.47); MONOCYTES PERCENT AUTO 6 % (4-13); Mean Corpuscular HGB 29.3 pg (26.0-34.0); Mean Corpuscular HGB Conc 30.7 g/dL (31.5-36.5); Mean Corpuscular Volume 96 fL (80-100); Mean Platelet Volume 10.1 fL (9.1-12.4); NEUTROPHILS ABSOLUTE AUTO 12.38 K/mm3 (1.96-9.15); NEUTROPHILS PERCENT AUTO 65 % (41-73); Platelet Count 327 K/mm3 (150-400); RDW Coefficient Variation 13.6 % (11.7-14.2); RDW Standard Deviation 47.8 fL (35.1-46.3)
[2018-08-02 22:38] LABS: Alanine Aminotransfer (ALT/SGP 18 U/L (12-78); Albumin, Blood 3.3 g/dL (3.4-5.0); Albumin/Globulin Ratio 0.7 (0.8-1.8); Alk Phos 111 U/L (50-136); Anion Gap 10 mmol/L (6-16); Aspartate Aminotrans (AST/SGOT 15 U/L (12-37); Bilirubin, Total 0.6 mg/dL (0.1-1.0); Blood Urea Nitrogen 14 mg/dL (8-24); Bun/Creatinine Ratio 13.3 (12.0-20.0); CO2, Blood 29 mmol/L (21-32); Calcium, Blood 9.3 mg/dL (8.5-10.1); Chloride, Blood 98 mmol/L (98-108); Creatinine, Blood 1.05 mg/dL (0.40-1.00); Glomerular Filtration Rate 57 (60-); Glucose, Blood 224 mg/dL (70-99); Potassium, Blood 4.3 mmol/L (3.5-5.5); Sodium, Blood 137 mmol/L (136-145); Total Protein, Blood 8.3 g/dL (6.4-8.2); Troponin I <0.015 ng/mL (0.000-0.040)
[2018-08-02 22:48] LABS: Influenza A Negative (NEGATIVE); Influenza B Negative (NEGATIVE)
[2018-08-02] MEDS ORDERED: **INCOMPLETE MED REC (23:03)
[2018-08-02] MEDS ORDERED: Colace250 MG PO (23:34)
[2018-08-02] MEDS ORDERED: NICO21TP TOP (23:36)
[2018-08-02] MEDS ORDERED: Nystatin100000 UN1 PO (23:37)
[2018-08-03 01:10] LABS: Source, Urine Catheter
[2018-08-03 01:21] LABS: Bilirubin, Urine Neg (Neg); Blood, Urine 3+ (Neg); Glucose Qualitative, Urine 1+ (Neg); Ketones, Urine Neg (Neg); Leukocyte Esterase, Urine Neg (Neg); Nitrite, Urine Neg (Neg); Protein, Urine 3+ (Neg); Urobilinogen, Urine NORM (Normal)
[2018-08-03 01:28] LABS: Appearance, Urine Clear (Clear); Color, Urine Yellow (P-Yellow)
[2018-08-03 01:29] LABS: PCO2 Arterial 37.1 mmHg (35-45); PO2 Arterial 75.9 mmHg (80-100); pH Blood Arterial 7.46 (7.35-7.45)
[2018-08-03 01:47] LABS: Amorphous Mod (0-Heavy); Bacteria Few /hpf; Squamous Epithelial Cells Mod /hpf (Few); White Blood Cells, Urine Rare /hpf (0-5)
--- NOTE | 2018-08-03 02:35 | NUR ---
ASSUMED CARE OF PT AT 0045. PT ARRIVES TO ROOM ICU 10 FROM ED. SLIDE TRANSFERRED TO BED FROM [facility] WITH 5 PERSON ASSIST. PT HAS EYES OPEN DURING TRANSFER. PROPOFOL DRIP TITRATED TO MAINAIN SAS 3-4. CURRENTLY PT ABLE TO REST. PT VENTED WITH AC 16, TV 400, 40% FIO2, PEEP 5. PT TOLERATES THIS WELL WITH PROPOFOL DRIP AT 30 MCG'S. WILL REVIEW CHART AND PLAN OF CARE FOR THIS PT.
[2018-08-03 05:07] LABS: BASOPHILS ABSOLUTE AUTO 0.06 K/mm3 (0.00-0.23); BASOPHILS PERCENT AUTO 0 % (0-2); EOSINOPHILS ABSOLUTE AUTO 0.01 K/mm3 (0.00-0.68); EOSINOPHILS PERCENT AUTO 0 % (0-6); Hematocrit 36.6 % (33.0-51.0); Hemoglobin 11.4 g/dL (11.5-16.0); IMMATURE GRAN ABSOLUTE AUTO 0.13 K/mm3 (0.00-0.10); IMMATURE GRAN PERCENT AUTO 1 % (0-1); LYMPHOCYTES ABSOLUTE AUTO 0.45 K/mm3 (0.84-5.20); LYMPHOCYTES PERCENT AUTO 2 % (21-46); MONOCYTES PERCENT AUTO 3 % (4-13); Mean Corpuscular HGB 29.2 pg (26.0-34.0); Mean Corpuscular HGB Conc 31.1 g/dL (31.5-36.5); Mean Corpuscular Volume 94 fL (80-100); Mean Platelet Volume 10.6 fL (9.1-12.4); NEUTROPHILS ABSOLUTE AUTO 23.61 K/mm3 (1.96-9.15); NEUTROPHILS PERCENT AUTO 94 % (41-73); Platelet Count 208 K/mm3 (150-400); RDW Coefficient Variation 13.6 % (11.7-14.2); RDW Standard Deviation 47.2 fL (35.1-46.3); White Blood Cell Count 25.06 K/mm3 (4.00-11.30)
[2018-08-03 05:34] LABS: Magnesium, Blood 1.7 mg/dL (1.6-2.4)
[2018-08-03 05:37] LABS: Alanine Aminotransfer (ALT/SGP 23 U/L (12-78); Albumin, Blood 2.8 g/dL (3.4-5.0); Albumin/Globulin Ratio 0.7 (0.8-1.8); Alk Phos 95 U/L (50-136); Anion Gap 10 mmol/L (6-16); Aspartate Aminotrans (AST/SGOT 83 U/L (12-37); Bilirubin, Total 0.8 mg/dL (0.1-1.0); Blood Urea Nitrogen 16 mg/dL (8-24); Bun/Creatinine Ratio 16.7 (12.0-20.0); CO2, Blood 27 mmol/L (21-32); Calcium, Blood 8.3 mg/dL (8.5-10.1); Chloride, Blood 105 mmol/L (98-108); Creatinine, Blood 0.96 mg/dL (0.40-1.00); Globulin, Blood 4.1 g/dL (2.2-4.0); Glomerular Filtration Rate >60 (60-); Glucose, Blood 162 mg/dL (70-99); Potassium, Blood 2.9 mmol/L (3.5-5.5); Sodium, Blood 142 mmol/L (136-145); Total Protein, Blood 6.9 g/dL (6.4-8.2)
--- NOTE | 2018-08-03 06:30 | NUR ---
PT MAINTAINING SATURATIONS > 90 PERCENT WITH CURRENT VENT SETTINGS. HAVE SENT SPUTUM SAMPLE THAT WAS RETRIEVED VIA SUCTIONING OF ETT. THICK AND CELIS COLORED SECRETION RETURNED. PT'S TEMPERATURE HAS BEEN DECREASING THROUGH THE NIGHT. SEE VITAL SIGN FLOWSHEET FOR DETAILS. NO S/S ADVERSE REACTIONS TO ANTIBIOTIC THERAPY TO NOTE. WILL CONTINUE TO MONITOR PT, AND WILL REPORT OFF TO ONCOMING RN.
--- NOTE | 2018-08-03 08:33 | NUR ---
RECEIVED REPORT AND ASSUMED CARE OF PATIENT. SHE IS COMFORTABLE AND CALM. PT OPENING EYES SPONTANEOUSLY, ABLE TO FOLLOW DIRECTIONS APPROPRIATELY AND EXPRESS HER NEEDS/WISHES AND ANSWER QUESTIONS BY WRITING ON PAPER. PT REPORT 9/10 PAIN AND WRITES "CANCER" WHEN ASKED WHERE IT HURTS. SHE PUT HAND TO LOWER ABDOMEN. PT INTUBATED AND SEDATION. PROPOFOL RUNNING AT 30MCG/KG/MIN, VENT SETTINGS 16/400/5/30%, SPO2 >90%. SUCTIONED TUBE, SMALL AMOUNT OF CELIS SPUTUM. LUNG SOUNDS ARE CLEAR IN UPPER LOBES AND COARSE IN LOWER. CARBAJAL CATH PATENT AND DRAINING TO GRAVITY.
--- NOTE | 2018-08-03 15:26 | NUR ---
Pt is currently intubated in ICU. She is full code at this time, however, has a POLST that states DNR with Limited interventions. Apparently, she asked to be intubated in the ER when she arrived in extreme distress. Pt has metastatic cancer disease. Spoke with nurses. Pt will not be extubated today, maybe tomorrow per nursing. Will plan on following up with patient when extubated. Pt is alert, and writing on paper to communicate with nursing. Discussed POLST with nursing.
--- NOTE | 2018-08-03 16:16 | NUR ---
Echocardiogram completed.
[2018-08-03 17:45] LABS: U Benzodiazapine Screen DETECTED; U Cannabinoids Screen DETECTED
[2018-08-03 17:46] LABS: U Amphetamine Screen Not Detected; U Barbituate Screen Not Detected; U Buprenorphine Screen Not Detected; U Cocaine Screen Not Detected; U Methadone Screen Not Detected; U Methamphetamine Screen Not Detected; U Opiates Screen Not Detected; U Oxycodone Screen DETECTED; U Phencyclidine Screen Not Detected; U Propoxyphene Screen Not Detected
--- NOTE | 2018-08-03 18:01 | NUR ---
Matilda is on ventilator, but awakens to voice. She appears quite weak and sleepy. She nodded yes to prayer. I held her hand, prayed, and provided assurance of God's love and attention. She fell back to sleep. No family/friends present. Matilda may benefit from a conversation regarding what she perceives is God's will for her. [employer] services will remain available.
--- NOTE | 2018-08-03 18:51 | NUR ---
PT CONTINUES TO BE INTUBATED AND SEDATED, PROPOFOL RUNNING AT 30 MCG/KG/MIN. VENT SETTINGS CONTINUE TO BE 14/400/5/30%, SPO2 >92% THROUGHOUT THE SHIFT. PT AWAKES AND CAN ANSWER QUESTIONS AND EXPRESS NEEDS APPROPRIATELY. SHE IS WRITING ON PAPER. CARBAJAL IN PLACE AND DRAINING TO GRAVITY. FAMILY STATES THEY WILL COME VISIT TONIGHT, PATIENT IS ANXIOUS AND REQUIRING HOME PAIN MEDICATIONS ORDERED. WILL CONTINUE TO MONITOR AND GIVE REPORT TO LOUIS RN.
--- NOTE | 2018-08-03 20:00 | NUR ---
ASSUMED CARE OF PT AT 1900. REPORT RECEIVED. PT PRESENTS IN BED. VENTED. AC 16, TV 400, PEEP 5, FIO2 30 PERCENT. PT TOLERATING THIS WELL. IS ABLE TO MAKE HER NEEDS KNOWN BY WRITING OUT ON PAPER. PT CONTINUES WITHOUT RESTRAINTS ON AT THIS TIME. NO ATTEMPTS TO REACH TOWARDS ETT AT THIS TIME. WILL CONTINUE WITHOUT RESTRAINTS BUT WILL BE CAUTIOUS. REPLACE RESTRAINTS IF NEEDED. WILL REVIEW CHART AND PLAN OF CARE FOR THIS PT.
--- NOTE | 2018-08-04 | NUR ---
PT REMAINS WITH 30 MCG'S PROPOFOL FOR VENT TOLERANCE. AWAKENS EASILY AND IS COOPERATIVE WITH CARE. IS ABLE TO MAKE NEEDS KNOWN. NO S/S ADVERSE REACTIONS TO ANTIBIOTIC THERAPY. WILL CONTINUE TO MONITOR.
[2018-08-04 04:54] LABS: BASOPHILS ABSOLUTE AUTO 0.03 K/mm3 (0.00-0.23); BASOPHILS PERCENT AUTO 0 % (0-2); EOSINOPHILS PERCENT AUTO 0 % (0-6); Hematocrit 32.6 % (33.0-51.0); Hemoglobin 10.3 g/dL (11.5-16.0); IMMATURE GRAN ABSOLUTE AUTO 0.12 K/mm3 (0.00-0.10); IMMATURE GRAN PERCENT AUTO 1 % (0-1); LYMPHOCYTES PERCENT AUTO 2 % (21-46); MONOCYTES ABSOLUTE AUTO 0.66 K/mm3 (0.16-1.47); MONOCYTES PERCENT AUTO 3 % (4-13); Mean Corpuscular HGB 29.4 pg (26.0-34.0); Mean Corpuscular HGB Conc 31.6 g/dL (31.5-36.5); Mean Corpuscular Volume 93 fL (80-100); Mean Platelet Volume 10.6 fL (9.1-12.4); NEUTROPHILS ABSOLUTE AUTO 20.77 K/mm3 (1.96-9.15); NEUTROPHILS PERCENT AUTO 94 % (41-73); Platelet Count 198 K/mm3 (150-400); RDW Standard Deviation 48.1 fL (35.1-46.3); White Blood Cell Count 22.08 K/mm3 (4.00-11.30)
[2018-08-04 05:18] LABS: Albumin, Blood 2.5 g/dL (3.4-5.0); Anion Gap 8 mmol/L (6-16); Blood Urea Nitrogen 25 mg/dL (8-24); Bun/Creatinine Ratio 24.5 (12.0-20.0); CO2, Blood 28 mmol/L (21-32); Calcium, Blood 8.9 mg/dL (8.5-10.1); Chloride, Blood 107 mmol/L (98-108); Creatinine, Blood 1.02 mg/dL (0.40-1.00); Glomerular Filtration Rate 59 (60-); Glucose, Blood 152 mg/dL (70-99); Phosphorus, Blood 2.9 mg/dL (2.5-4.9); Potassium, Blood 3.5 mmol/L (3.5-5.5); Sodium, Blood 143 mmol/L (136-145)
--- NOTE | 2018-08-04 06:30 | NUR ---
PT IS SUCCESS IN WEAN THIS AM. SPONTANEOUS TRIAL WITH 7/5 SETTINGS. PT COOPERATIVE WITH TRIAL. CURRENTLY OFF SEDATION AND REMAINS ON SPONTANEOUS. IS ABLE TO MAINTAIN >325 TIDAL VOLUMES. NO S/S ADVERSE REACTIONS TO ANTIBIOTIC THERAPY. WILL CONTINUE TO MONITOR PT, AND WILL REPORT OFF TO ONCOMING RN.
--- NOTE | 2018-08-04 08:53 | NUR ---
RECEIVED REPORT AND ASSUMED CARE OF PATIENT. AFFECT IS PLEASANT THIS MORNING, SHE IS OFF PROPFOL AND WEEN CONTINUED FROM THIS MORNING. PT ON PS 7, PEEP 5, TV 400-600'S, RR 13 AND SPO2 AT 96%. PT ANXIOUS FOR EXTUBATION. DR STEELE IN TO SEE PATIENT. HE WOULD LIKE A CARDIOLOGY CONSULTATION BEFORE EXTUBATING.
--- NOTE | 2018-08-04 10:55 | NUR ---
DR. JOYCELYN HIRSCH ROUNDED ON PT. RHYTHM CHANGES NOTED. NEW EKG OBTAINED AT THIS TIME. DR. HIRSCH STATES THAT EKG REFLECTS ISCHEMIC CHANGES. DISCUSSED WITH PT WHO IS ON THE VENTILATOR BUT AWAKE AND ALERT AND ABLE TO COMMUNICATE QUESTIONS/CONCERNS VIA PENCIL AND PAPER. DR. HIRSCH DISCUSSED EKG FINDINGS, NEED FOR ANGIOGRAM, AND POSSIBILITY OF NEED FOR STENTING OR BYPASS. PT EXPRESSES UNDERSTANDING AND WISHES TO PROCEED WITH ANGIOGRAM. CONSENT OBTAINED, SIGNED BY PT. PLAN FOR ANGIOGRAM THIS AFTERNOON.
--- NOTE | 2018-08-04 12:03 | NUR ---
Partial echo using 0.45ml of Definity contrast performed.
--- NOTE | 2018-08-04 12:46 | NUR ---
PT TO FACILITIES PLANNER AT THIS TIME WITH FACILITIES PLANNER RN'S AND RT PRATHER.
--- NOTE | 2018-08-04 15:40 | NUR ---
PT RETURNS FROM [employer] SCHEDULER TR BAND IN PLACE TO R WRIST WITH BALLOON INFLATED WITH 12CC AIR. SITE WITH MULTIPLE PUNCTURES, BRUISING NOTED UNDER TR BAND, SMALL AMT OF OOZING NOTED UNDER BAND. DISTAL HAND WITH GOOD CAP REFILL, WARM AND PINK. PT ALSO HAS FAILED R GROIN ACCESS SITE WITH SHEATH IN PLACE R/T HIGH ACT. SITE STABLE WITHOUT BLEEDING OR OOZING NOTED. DISTAL FOOT WITH PALPABLE PULSES AND GOOD CAP REFILL. PT HAD 1 STENT TO MID CIRC. VITAL SIGNS STABLE. WILL CONTINUE TO MONITOR SITES AND PULL SHEATH WHEN APPROPRIATE. PT SEDATED WITH PROPOFOL GTT AT THIS TIME.
--- NOTE | 2018-08-04 16:32 | NUR ---
ACCESS SITE ASSESSMENTS: R GROIN SHEATH REMAINS IN PLACE. SITE STABLE. AWAITING PTT RESULTS. R RADIAL ACCESS SITE REMAINS STABLE. CIRCULATION INTACT. TR BAND REMAINS FULLY INFLATED. WILL CONTINUE TO MONITOR.
--- NOTE | 2018-08-04 18:01 | NUR ---
SHIFT SUMMARY PT INTUBATED T/O SHIFT. VENT SETTINGS AC 16, TV 400, PEEP 5, FIO2 30%. PROPOFOL BETWEEN 30-40 MCG/KR, CURRENTLY AT 35 MCG/KR. WITH THIS, PT CALM AND COOPERATIVE, ABLE TO AROUSE EASILY AND COMMUNICATE VIA PENCIL AND PAPER. PT IS NOT RESTRAINED. PT WENT TO DESKTOP ARCHITECT TODAY AND HAD 1 BARE METAL STENT PLACED IN THE MID CIRC. PT HAD FAILED R GROIN ACCESS ATTEMPT, HAS A 6FR SHEATH WHICH REMAINS IN PLACE PENDING PTT TO BE LESS THAN 40. PT HAD R RADIAL ACCESS SITE WITH TR BAND IN PLACE - SITE STABLE, SEE PREVIOUS ASSESSMENTS. TR BAND HAS APPROX 8-10CC OF AIR REMAINING. PT HAS MEDIPORT ACCESSED WITH NS TKO AND PROPOFOL, ALSO HAS 18G PIV TO RAC WHICH IS SL. PT HAS TEMP CARBAJAL IN PLACE DRAINING DARK YELLOW URINE WITH SOME SEDIMENT. VITAL SIGNS STABLE T/O SHIFT. WILL CONTINUE TO MONITOR PT AND GIVE HANDOFF REPORT TO ONCOMING SHIFT WHEN AVAILABLE.
--- NOTE | 2018-08-04 19:15 | NUR ---
Rolla of Care: Patient intubated, rouses spontaneously and to verbal stimuli. Propofol at 25mcg/kg/min, able to write needs on clipboard, oriented to self, situation and place. Vent to AC 16/400/5/30%, O2-96-98%, all other VSS. C/o pain and anxiety at start of shift. Prn fentanyl given with good effect noted. Anxiety r/t to family not being able to locate patient's phone, prn ativan helpful, patient also [facility]. TR band to rt radial access site, approx 8ml air remaining in band, scant sanguinous drainage noted, day shift nurse confirms that drainage is old. No s/s of active bleed to rt radial noted, sensation/temp/color/capillary refill WNL. Rt groin sheath in place, minimal sanguinous drainage noted under tegaderm bandage, no s/s of active bleeding/hematoma noted. RLE temp/sensation/color/capillary refill/pulse WNL. Plan to pull rt groin sheath early this shift. Temp-probe corea patent and intact, draining light yellow clear urine. Medi-port to right upper chest patent and intact, infusing propofol and NS TKO without difficulty. Will continue to monitor for pain, comfort, safety.
--- NOTE | 2018-08-04 20:30 | NUR ---
Sheath Removal: Rt groin sheath removed at 2030hr, direct pressure held for 20 minutes. No s/s of bleeding/hematoma noted, VS remain stable. Tegaderm dressing applied to site, minimal/scant blood drainage/leakage noted from puncture site after applying dressing. RLE pulse/temp/color/sensation/capillary refill remain WNL. Will continue to monitor.
[2018-08-05 03:37] LABS: BASOPHILS ABSOLUTE AUTO 0.02 K/mm3 (0.00-0.23); BASOPHILS PERCENT AUTO 0 % (0-2); EOSINOPHILS PERCENT AUTO 0 % (0-6); Hematocrit 30.9 % (33.0-51.0); Hemoglobin 9.6 g/dL (11.5-16.0); IMMATURE GRAN PERCENT AUTO 1 % (0-1); LYMPHOCYTES ABSOLUTE AUTO 1.25 K/mm3 (0.84-5.20); LYMPHOCYTES PERCENT AUTO 7 % (21-46); MONOCYTES ABSOLUTE AUTO 1.21 K/mm3 (0.16-1.47); MONOCYTES PERCENT AUTO 7 % (4-13); Mean Corpuscular HGB 29.2 pg (26.0-34.0); Mean Corpuscular HGB Conc 31.1 g/dL (31.5-36.5); Mean Corpuscular Volume 94 fL (80-100); Mean Platelet Volume 10.7 fL (9.1-12.4); NEUTROPHILS PERCENT AUTO 86 % (41-73); Platelet Count 196 K/mm3 (150-400); RDW Coefficient Variation 14.1 % (11.7-14.2); RDW Standard Deviation 49.1 fL (35.1-46.3); Red Blood Cell Count 3.29 M/mm3 (3.80-5.20); White Blood Cell Count 18.48 K/mm3 (4.00-11.30)
[2018-08-05 03:51] LABS: Albumin, Blood 2.3 g/dL (3.4-5.0); Anion Gap 10 mmol/L (6-16); Blood Urea Nitrogen 26 mg/dL (8-24); Bun/Creatinine Ratio 30.9 (12.0-20.0); CO2, Blood 26 mmol/L (21-32); Calcium, Blood 8.7 mg/dL (8.5-10.1); Chloride, Blood 109 mmol/L (98-108); Creatinine, Blood 0.84 mg/dL (0.40-1.00); Glomerular Filtration Rate >60 (60-); Glucose, Blood 87 mg/dL (70-99); Phosphorus, Blood 2.8 mg/dL (2.5-4.9); Potassium, Blood 3.7 mmol/L (3.5-5.5); Sodium, Blood 145 mmol/L (136-145)
--- NOTE | 2018-08-05 05:53 | NUR ---
Shift Summary: Patient slept well throughout shift, easily roused to verbal stimuli. Propofol decreased from 35mg/kg/min to 20mcg/kg/min throughout shift. Patient remains calm and cooperative with staff, able to write needs on clipboard. Scant amount of bleeding noted from rt radial access site noted when approx 2ml of air remained in TR band. 3ml more of air added to TR band at that time, effective to stop bleeding. TR band has since been decreased to 0ml of air (at 0500), but remains in place. No additional bleeding noted from site, rt hand color/temp/sensation/capillary refill remain WNL. Rt femoral site remains WNL, no s/s of bleeding or hematoma noted, RLE also remains WNL. Spontaneous breathing trial this morning tolerated well except patient triggered apnea alarm x2 late in trial. Otherwise taking good volumes, rate 16-18, and remained calm/cooperative (see RT notes). Feliciano cath remains patent and intact, draining light yellow clear urine. Medi-port to rt upper chest remains patent and intact. Will continue to monitor until report to day shift RN.
--- NOTE | 2018-08-05 09:00 | NUR ---
SPOKE WITH DR. STEELE ABOUT ORDER TO HOLD ASPIRIN FROM DR. CLEMENT DUE TO RECENT PROCEDURE. DR. STEELE GAVE ORDERS TO GO AHEAD AND GIVE ASPIRIN AND BLOOD THINNERS DUE TO RECENT STENT.
--- NOTE | 2018-08-05 12:37 | NUR ---
REASSESSMENT: PT HAS BEEN RESTING THROUGHOUT THE MORNING ON THE VENTILATOR. SHE AWAKES EASILY TO VOICE. SEDATION CUT IN HALF AT 0930 FOR WEAN AND PT DID WELL ON SPONTANEOUS. NOW PER DR. STEELE'S ORDERS PT IS ON A T-PIECE AND PLAN IS TO EXTUBATE IF SHE DOES WELL WITH THAT FOR HALF AN HOUR. PT HAD LO[place] RED BLOOD WITH SUCTIONING THIS MORNING, DR. STEELE AWARE. AT 1200 PT ONLY HAD A SMALL AMT OF RED BLOOD. PT'S ANXIETY HAS BEEN CONTROLLED WITH ATIVAN. SHE REMAINS SR, BP STABLE. CONTINUING TO MONITOR.
--- NOTE | 2018-08-05 13:21 | NUR ---
EXTUBATE: PT EXTUBATED AT 1318. PT TOLERATED IT WELL. CURRENTLY SPO2 95% ON 4L/NC. PT REQUESTED SOMETHING TO EAT RIGHT AWAY, POST EXTUBATION PROTOCOL FOR EATING EXPLAINED TO HER AND SHE NODDED UNDERSTANDING. PT GIVEN LEMON GLYCERIN SWABS IN THE MEAN TIME.
--- NOTE | 2018-08-05 17:08 | NUR ---
SHIFT SUMMARY: PT WAS EXTUBATED TODAY AND HAS BEEN DOING WELL ON 2L/NC. HER ANXIETY HAS BEEN WELL CONTROLLED. LUNGS ARE CLEAR, BUT DIM. COUGHING UP A SMALL AMT OF SPUTUM. SHE HAS SHOWED NO SIGNS OF ASPIRATION WHEN TAKING ICE CHIPS, THEN WATER SO DIET ORDERED. SHE REMAINS SR, BP STABLE. OVER 2L OF URINE OUT AFTER LASIX. PT HAD 2 DIFFERENT FAMILY MEMBERS CALL FOR UPDATES, BUT NO VISITORS SO FAR TODAY.
--- NOTE | 2018-08-05 19:15 | NUR ---
Hendry of Care: Patient alert and oriented x4, sitting upright in bed watching TV. Denies dyspnea or SOB, O2-94-96% on 2L/NC, VSS. C/o pain to lt groin (chronic), prn [place] given, will monitor for effect. Patient mildly anxious/tearful r/t her son not coming in to visit her, prn ativan given with good effect. RT encouraged use of flutter-valve r/t patient's c/o not being able to cough up sputum. Feliciano cath patent and intact, draining light yellow, clear urine. Medi-port to rt upper chest patent and intact, infusing NS at TKO and Abx without difficulty. Call light in reach, makes needs known. Will continue to monitor for pain, comfort, safety.
[2018-08-06 03:29] LABS: BASOPHILS ABSOLUTE AUTO 0.02 K/mm3 (0.00-0.23); BASOPHILS PERCENT AUTO 0 % (0-2); EOSINOPHILS ABSOLUTE AUTO 0.08 K/mm3 (0.00-0.68); EOSINOPHILS PERCENT AUTO 1 % (0-6); Hematocrit 31.7 % (33.0-51.0); Hemoglobin 9.9 g/dL (11.5-16.0); IMMATURE GRAN ABSOLUTE AUTO 0.07 K/mm3 (0.00-0.10); IMMATURE GRAN PERCENT AUTO 1 % (0-1); LYMPHOCYTES ABSOLUTE AUTO 1.85 K/mm3 (0.84-5.20); LYMPHOCYTES PERCENT AUTO 16 % (21-46); MONOCYTES ABSOLUTE AUTO 0.96 K/mm3 (0.16-1.47); MONOCYTES PERCENT AUTO 9 % (4-13); Mean Corpuscular HGB 29.2 pg (26.0-34.0); Mean Corpuscular HGB Conc 31.2 g/dL (31.5-36.5); Mean Corpuscular Volume 94 fL (80-100); Mean Platelet Volume 10.7 fL (9.1-12.4); NEUTROPHILS ABSOLUTE AUTO 8.35 K/mm3 (1.96-9.15); NEUTROPHILS PERCENT AUTO 74 % (41-73); Platelet Count 191 K/mm3 (150-400); RDW Coefficient Variation 14.3 % (11.7-14.2); RDW Standard Deviation 47.7 fL (35.1-46.3); Red Blood Cell Count 3.39 M/mm3 (3.80-5.20); White Blood Cell Count 11.33 K/mm3 (4.00-11.30)
[2018-08-06 03:44] LABS: Albumin, Blood 2.4 g/dL (3.4-5.0); Anion Gap 9 mmol/L (6-16); Blood Urea Nitrogen 34 mg/dL (8-24); Bun/Creatinine Ratio 35.3 (12.0-20.0); CO2, Blood 29 mmol/L (21-32); Calcium, Blood 8.5 mg/dL (8.5-10.1); Chloride, Blood 108 mmol/L (98-108); Creatinine, Blood 0.96 mg/dL (0.40-1.00); Glomerular Filtration Rate >60 (60-); Glucose, Blood 96 mg/dL (70-99); Phosphorus, Blood 2.3 mg/dL (2.5-4.9); Potassium, Blood 3.3 mmol/L (3.5-5.5); Sodium, Blood 146 mmol/L (136-145)
--- NOTE | 2018-08-06 06:04 | NUR ---
Shift Summary: Patient slept on/off throughout shift. C/o chronic pain to left groin effectively managed with x2 doses of prn Oxycodone/Acetaminophen. Denies dyspnea/SOB unless transferring to bedside commode, resolved with instructing patient to take slow deep breaths, O2-96-98% on 2L/NC. Rt radial and rt groin arterial access sites remain WNL, armboard in place to rt wrist throughout shift. X2 doses of prn Ativan given for c/o anxiety with good effect noted. Feliciano remains patent and intact, draining light yellow clear urine. Medi-port remains patent and intact. Morning labs showed potassium of 3.3, phosphorus of 2.3, received order per Dr. Wise for Kphos 20mm IV x1, awaiting this medication from pharmacy. Will continue to monitor until report to day shift RN.
--- NOTE | 2018-08-06 08:47 | NUR ---
RECEIVED ORDER FROM DR. STEELE TO SWITCH PT'S ATIVAN TO PO, SEE ORDERS.
--- NOTE | 2018-08-06 09:19 | NUR ---
PT'S BLOOD SUGARS HAVE BEEN NORMAL AND PT STATES SHE IS NOT A DIABETIC. RECEIVED OK FROM DR. STEELE TO DC BLOOD SUGAR CHECKS. ALSO RECEIVED OK TO TRANSFER PT TO PCU. DR. PHELAN BY AND GAVE ORDERS TO JUSTIN CARBAJAL.
--- NOTE | 2018-08-06 10:25 | NUR ---
PT TRANSFERRED TO U 13. REPORT GIVEN TO KADEN LEGGETT. PT TRANSPORTED VIA WC WITH AIDE AND RN. PT TOLERATED TRANSFER WELL. ALL BELONGINGS TRANSFERRED WITH PT. PT CALLED HER FAMILY HERSELF TO TELL THEM OF ROOM CHANGE.
--- NOTE | 2018-08-06 19:11 | NUR ---
SHIFT SUMMARY Assumed care of pt upon arrival from ICU at 1010. Telephone report received from Alexus ALFONSO prior to pt arrival. Pt on 3 LPM NC. She states that she wears 2-3 liters at home. SR per telemetry. No acute changes since arrival to unit. Bed maintained in lowest position. Call light in reach. Pt denies need at this time.
--- NOTE | 2018-08-06 21:45 | NUR ---
ASSUMED CARE OF PATIENT AT APPROXIMATELY 1900 FROM OLEKSANDR Tinajero RN. PATIENT ALERT AND ORIENTED X4; SLOW TO RESPOND TIMES. PATIENT REPORTS PAIN IN HER LEFT GROIN R/T CANCER; MEDICATED PER EMAR; PATIENT ANXIOUS AND REQUESTED PRN ANXIETY MEDICATION. PATIENT DENIES DIZZINESS AND NAUSEA. SR ON TELE; OXYGEN SATURATION ABOVE 90% ON 2LPM VIA NC. SBA TO BEDSIDE COMMODE. MEDIPORT INFUSING ABX. RIGHT RADIAL AND FEMORAL SITES WNL. PATIENT'S SON VISITED. PATIENT CURRENTLY RESTING IN BED; CALL LIGHT IN REACH; BED IN LOWEST POSISTION; BED ALARM ON; WILL CONTINUE TO MONITOR AND ASSESS UNTIL END OF SHIFT.
[2018-08-07 04:28] LABS: BASOPHILS ABSOLUTE AUTO 0.02 K/mm3 (0.00-0.23); BASOPHILS PERCENT AUTO 0 % (0-2); EOSINOPHILS PERCENT AUTO 2 % (0-6); Hematocrit 33.8 % (33.0-51.0); Hemoglobin 10.8 g/dL (11.5-16.0); IMMATURE GRAN ABSOLUTE AUTO 0.16 K/mm3 (0.00-0.10); IMMATURE GRAN PERCENT AUTO 2 % (0-1); LYMPHOCYTES ABSOLUTE AUTO 2.13 K/mm3 (0.84-5.20); LYMPHOCYTES PERCENT AUTO 24 % (21-46); MONOCYTES ABSOLUTE AUTO 0.79 K/mm3 (0.16-1.47); MONOCYTES PERCENT AUTO 9 % (4-13); Mean Corpuscular HGB 29.7 pg (26.0-34.0); Mean Corpuscular Volume 93 fL (80-100); Mean Platelet Volume 10.4 fL (9.1-12.4); NEUTROPHILS ABSOLUTE AUTO 5.74 K/mm3 (1.96-9.15); NEUTROPHILS PERCENT AUTO 64 % (41-73); Platelet Count 213 K/mm3 (150-400); RDW Coefficient Variation 13.9 % (11.7-14.2); RDW Standard Deviation 47.2 fL (35.1-46.3); Red Blood Cell Count 3.64 M/mm3 (3.80-5.20); White Blood Cell Count 9.04 K/mm3 (4.00-11.30)
[2018-08-07 04:46] LABS: Albumin, Blood 2.6 g/dL (3.4-5.0); Anion Gap 7 mmol/L (6-16); Blood Urea Nitrogen 26 mg/dL (8-24); Bun/Creatinine Ratio 28.8 (12.0-20.0); CHOL/HDL RATIO 4.3; CO2, Blood 33 mmol/L (21-32); Calcium, Blood 9.1 mg/dL (8.5-10.1); Chloride, Blood 105 mmol/L (98-108); Cholesterol 245 mg/dL (50-200); Glomerular Filtration Rate >60 (60-); Glucose, Blood 87 mg/dL (70-99); HDL Cholesterol 57 mg/dL (>39); LDL/HDL RATIO 2.7; Low Density Lipoprotein Chol 156 mg/dL (0-110); Phosphorus, Blood 3.1 mg/dL (2.5-4.9); Potassium, Blood 3.6 mmol/L (3.5-5.5); Sodium, Blood 145 mmol/L (136-145); Triglycerides 160 mg/dL (30-160); Very Low Density Lipoprot Chol 32 mg/dL (6-32)
--- NOTE | 2018-08-07 06:27 | NUR ---
NO ACUTE CHANGES TO REPORT. VSS. PATIENT SLEPT ABOUT EIGHT HOURS LAST NIGHT. WILL CONTINUE TO MONITOR AND ASSESS UNTIL END OF SHIFT.
--- NOTE | 2018-08-07 08:56 | NUR ---
BEGINNING OF SHIFT Assumed care at 0700. Report recieved from Adwoa ALFONSO. Pt on 2 LPM NC, which is baseline O2 use. Dr Zambrano in to see pt this AM. Orders given for medical floor status without telemetry. Telemetry removed. Pt states desire to ambulate further today than she did yesterday. Bed in lowest position. Call light in reach. Pt denies need at this time.
--- NOTE | 2018-08-07 17:15 | NUR ---
TRANSFER Pt transferred to room 224. Report called to Ledy ALFONSO. No changes since shift assessment. Groin and radial site stable. Chart, belongings, and medications transferred with patient.
--- NOTE | 2018-08-07 17:30 | NUR ---
pt arrived to room 224 from pcu pt assisted into bed eating dinner oriented to room and layout pt stated she is missing her sweater looked thru her bags her black tank top was cut off of her will call icu pt had small amt of bleeding to her l arm from a bruise bandaid placed
[2018-08-08 05:01] LABS: BASOPHILS ABSOLUTE AUTO 0.06 K/mm3 (0.00-0.23); BASOPHILS PERCENT AUTO 1 % (0-2); EOSINOPHILS PERCENT AUTO 8 % (0-6); Hematocrit 38.2 % (33.0-51.0); Hemoglobin 11.7 g/dL (11.5-16.0); IMMATURE GRAN ABSOLUTE AUTO 0.26 K/mm3 (0.00-0.10); IMMATURE GRAN PERCENT AUTO 3 % (0-1); LYMPHOCYTES ABSOLUTE AUTO 2.22 K/mm3 (0.84-5.20); LYMPHOCYTES PERCENT AUTO 24 % (21-46); MONOCYTES ABSOLUTE AUTO 0.87 K/mm3 (0.16-1.47); MONOCYTES PERCENT AUTO 9 % (4-13); Mean Corpuscular HGB 28.7 pg (26.0-34.0); Mean Corpuscular HGB Conc 30.6 g/dL (31.5-36.5); Mean Corpuscular Volume 94 fL (80-100); Mean Platelet Volume 10.7 fL (9.1-12.4); NEUTROPHILS ABSOLUTE AUTO 5.17 K/mm3 (1.96-9.15); NEUTROPHILS PERCENT AUTO 56 % (41-73); Platelet Count 235 K/mm3 (150-400); RDW Coefficient Variation 13.9 % (11.7-14.2); RDW Standard Deviation 47.5 fL (35.1-46.3); Red Blood Cell Count 4.08 M/mm3 (3.80-5.20); White Blood Cell Count 9.28 K/mm3 (4.00-11.30)
[2018-08-08 05:23] LABS: Albumin, Blood 2.7 g/dL (3.4-5.0); Anion Gap 7 mmol/L (6-16); Blood Urea Nitrogen 30 mg/dL (8-24); CO2, Blood 31 mmol/L (21-32); Calcium, Blood 9.4 mg/dL (8.5-10.1); Chloride, Blood 103 mmol/L (98-108); Creatinine, Blood 1.07 mg/dL (0.40-1.00); Glomerular Filtration Rate 56 (60-); Glucose, Blood 86 mg/dL (70-99); Phosphorus, Blood 4.6 mg/dL (2.5-4.9); Potassium, Blood 3.7 mmol/L (3.5-5.5); Sodium, Blood 141 mmol/L (136-145)
--- NOTE | 2018-08-08 06:23 | NUR ---
PT DID WELL DURING NIGHT AND SLEPT MOST OF SHIFT. PT STILL DOES GET SOB WITH MINIMAL EXERTION. CURRENTLY ON 3L NC. LS ARE CLEAN BUT DIM T/O. PLAN FOR POSS DC HOME WITH SON TODAY OR TOMORROW. CALL LIGHT IN REACH.
--- NOTE | 2018-08-08 07:30 | NUR ---
pt sleeping wakes to verbal stimuli stated that she did not sleep well last night req some mucinex when the dr rounds today having trouble bringing it up encouraged to drink more fluids and use her flutter also to help still having sob with exertion but no resp distress events like yeterday
--- NOTE | 2018-08-08 10:10 | NUR ---
Spiritual care visit conducted. Patient was sitting up and alert when I entered patient's room. Patient is known to me. Patient shared with me about her thoughts about intubation and the conversations she has been having with her son. Patient shared with me that her prayer is no longer for for healing but to be strong enough to enjoy the life she has left. I listened empathically, I affirmed her choices to enjoy the time she has on this planet and to continue the conversations with her family about health care decisions. I provided spiritual direction and prayer. Patient responded well and was clearly moved emotionally by the prayer.
--- NOTE | 2018-08-08 11:09 | NUR ---
DR PHELAN BY TO SEE PT EARLIER FORGOT TO REElizabeth MUCINEX CALLED AND ORDERED WILL GIVE PT PHYSICAL THERAPY BY TO SEE PT
--- NOTE | 2018-08-08 11:44 | NUR ---
po pain meds given pt getting rt neb tx
--- NOTE | 2018-08-08 15:40 | NUR ---
OT AT BEDSIDE TO WORK WITH PT
--- NOTE | 2018-08-08 17:59 | NUR ---
pt req pain meds pt tearful wanting to go but also worried about going home discussed needing to go on hospice and her family
--- NOTE | 2018-08-09 04:19 | NUR ---
CONTINUES TO IMPROVE, ABLE TO AMBULATE TO BSC AND BACK TO BED WITH STANDBY ASSIT AND NO C/O SOB. STATES THAT SHE IS LOOKING FORWARD TO GOING HOME TODAY. DENIES PAIN, DISCOMFORT, OR FURTHER NEEDS AT THIS TIME. SAFETY MEASURES IN PLACE. WILL GIVE HAND OFF TO ONCOMING SHIFT USING SBAR DURING BEDSIDE REPORT.
[2018-08-09 05:10] LABS: BASOPHILS ABSOLUTE AUTO 0.05 K/mm3 (0.00-0.23); BASOPHILS PERCENT AUTO 0 % (0-2); EOSINOPHILS ABSOLUTE AUTO 1.08 K/mm3 (0.00-0.68); EOSINOPHILS PERCENT AUTO 9 % (0-6); Hematocrit 39.8 % (33.0-51.0); Hemoglobin 12.3 g/dL (11.5-16.0); IMMATURE GRAN ABSOLUTE AUTO 0.34 K/mm3 (0.00-0.10); IMMATURE GRAN PERCENT AUTO 3 % (0-1); LYMPHOCYTES ABSOLUTE AUTO 2.21 K/mm3 (0.84-5.20); LYMPHOCYTES PERCENT AUTO 18 % (21-46); MONOCYTES ABSOLUTE AUTO 1.03 K/mm3 (0.16-1.47); MONOCYTES PERCENT AUTO 8 % (4-13); Mean Corpuscular HGB 28.9 pg (26.0-34.0); Mean Corpuscular HGB Conc 30.9 g/dL (31.5-36.5); Mean Corpuscular Volume 93 fL (80-100); Mean Platelet Volume 10.6 fL (9.1-12.4); NEUTROPHILS ABSOLUTE AUTO 7.54 K/mm3 (1.96-9.15); NEUTROPHILS PERCENT AUTO 62 % (41-73); Platelet Count 251 K/mm3 (150-400); RDW Coefficient Variation 13.9 % (11.7-14.2); Red Blood Cell Count 4.26 M/mm3 (3.80-5.20); White Blood Cell Count 12.25 K/mm3 (4.00-11.30)
[2018-08-09 06:06] LABS: Albumin, Blood 2.9 g/dL (3.4-5.0); Anion Gap 10 mmol/L (6-16); Blood Urea Nitrogen 29 mg/dL (8-24); Bun/Creatinine Ratio 27.1 (12.0-20.0); CO2, Blood 30 mmol/L (21-32); Calcium, Blood 9.4 mg/dL (8.5-10.1); Chloride, Blood 101 mmol/L (98-108); Creatinine, Blood 1.07 mg/dL (0.40-1.00); Glomerular Filtration Rate 56 (60-); Glucose, Blood 83 mg/dL (70-99); Phosphorus, Blood 3.8 mg/dL (2.5-4.9); Potassium, Blood 3.3 mmol/L (3.5-5.5); Sodium, Blood 141 mmol/L (136-145)
--- NOTE | 2018-08-09 10:26 | NUR ---
THERAPY: PT IN ROOM TO EVAL AND TREAT. PT YEE WELL.
--- NOTE | 2018-08-09 10:59 | NUR ---
CHEST PAIN: PT C/O CHEST PAIN IN THE UPPER GASTIC REGION. PT STATES PAIN STARTED AFTER EATING CONTRERAS THIS AM. DESCRIBES PAIN "SHARP." VSS CHECKED, STABLE. PT IS NOT CURRENTLY ON TELE. WILL LET MD KNOW WHEN ROUNDING.
--- NOTE | 2018-08-09 11:43 | NUR ---
CHEST PAIN: PT IS CLAMMY BUT STATES CHEST PAIN WENT AWAY. MD NOTIFIED OF CHEST PAIN, EKG DONE AND PLACED ON CHART. MD WILL BE DOWN TO SEE THE PATIENT.
[2018-08-09 17:52] LABS: Hematocrit 28.4 % (33.0-51.0); Hemoglobin 8.9 g/dL (11.5-16.0)
--- NOTE | 2018-08-09 18:22 | NUR ---
pt has had some low blood pressures this shift. pt had bolus of 250cc x2 with improvement. evening coreg held per parameters. md changed pt daily meds. pt having soft-liquid stools this shift. guiac ordered, to be collected. h+h drawn this evening. pt drinking fluids well, poor appetite. voiding well. c/o abdominal and groing pain. pt can have maalox and oxycodone prn. pt very anxious, ativan changed to tid. pt assist with shower this afternoon. uses bsc indep. worked well with therapy. sats stable on 2l o2, denies sob.
--- NOTE | 2018-08-09 18:43 | NUR ---
GI: PT CONT TO HAVE LOW BLOOD PRESSURE. DROP IN H+H THIS EVENING. PT NEEDS OCCULT STOOL SENT, LAB REJECTED FIRST SPECIMINE. GI CONSULT CALLED TO DR ATKINSON. PT CHANGED TO CLEAR LIQUIDS. TO START PROTONIX GGT AND NS @ 50/HR.
--- NOTE | 2018-08-09 18:53 | NUR ---
1600 BP TAKEN, LOW. RETAKEN. REPORTED TO RN/CHARGE. HELD COREG
[2018-08-09 20:53] LABS: Stool Occult Blood Guaiac 1 Pos (Neg)
[2018-08-09 23:57] LABS: Hemoglobin 7.7 g/dL (11.5-16.0)
--- NOTE | 2018-08-10 00:49 | NUR ---
ATTEMPTED TO START PIV X2 TO RIGHT ARM UNSUCCESSFULL. PT UNABLE TO TOLERATE ATTEMPTS, WOULD CRY OUT IN PAIN. PROTONIX DRIP STOPPED, NEW LINES HUNG, AND ZOSYN STARTED A PIGGYBACK. WILL HANG PROTONIX DRIP AFTER COMPLETION OF ZOSYN. SAFETY MEASURES IN PLACE. WILL CONTINUE TO MONITOR.
[2018-08-10 04:27] LABS: BASOPHILS ABSOLUTE AUTO 0.04 K/mm3 (0.00-0.23); BASOPHILS PERCENT AUTO 0 % (0-2); EOSINOPHILS ABSOLUTE AUTO 0.46 K/mm3 (0.00-0.68); EOSINOPHILS PERCENT AUTO 3 % (0-6); Hematocrit 23.1 % (33.0-51.0); Hemoglobin 7.2 g/dL (11.5-16.0); IMMATURE GRAN PERCENT AUTO 3 % (0-1); LYMPHOCYTES ABSOLUTE AUTO 2.62 K/mm3 (0.84-5.20); LYMPHOCYTES PERCENT AUTO 17 % (21-46); MONOCYTES ABSOLUTE AUTO 1.27 K/mm3 (0.16-1.47); MONOCYTES PERCENT AUTO 8 % (4-13); Mean Corpuscular HGB 29.3 pg (26.0-34.0); Mean Corpuscular HGB Conc 31.2 g/dL (31.5-36.5); Mean Corpuscular Volume 94 fL (80-100); Mean Platelet Volume 10.4 fL (9.1-12.4); NEUTROPHILS ABSOLUTE AUTO 10.39 K/mm3 (1.96-9.15); NEUTROPHILS PERCENT AUTO 68 % (41-73); Platelet Count 238 K/mm3 (150-400); RDW Standard Deviation 47.9 fL (35.1-46.3); Red Blood Cell Count 2.46 M/mm3 (3.80-5.20); White Blood Cell Count 15.28 K/mm3 (4.00-11.30)
[2018-08-10 04:47] LABS: Albumin, Blood 2.4 g/dL (3.4-5.0); Anion Gap 7 mmol/L (6-16); Blood Urea Nitrogen 62 mg/dL (8-24); CO2, Blood 27 mmol/L (21-32); Calcium, Blood 8.3 mg/dL (8.5-10.1); Chloride, Blood 107 mmol/L (98-108); Creatinine, Blood 0.93 mg/dL (0.40-1.00); Glomerular Filtration Rate >60 (60-); Glucose, Blood 96 mg/dL (70-99); Phosphorus, Blood 2.6 mg/dL (2.5-4.9); Potassium, Blood 3.3 mmol/L (3.5-5.5); Sodium, Blood 141 mmol/L (136-145)
--- NOTE | 2018-08-10 06:17 | NUR ---
STATES THAT SHE STILL FEELS WEAK, AND IS A LITTLE ANXIOUS ABOUT GOING TO THE OR. DENIES PAIN, DISCOMFORT, OR FURTHER NEEDS AT THIS TIME. SAFETY MEASURES IN PLACE. WILL GIVE HAND OFF TO ONCOMING SHIFT USING SBAR DURING BEDSIDE REPORT.
--- NOTE | 2018-08-10 15:00 | NUR ---
SCOPE: PT TO DAY SURGERY FOR SCOPE. SCOPE CHECKLIST ON CHART, COMPLETE. PT HAS BEEN NPO. WILL CONT TO MONITOR WHEN RETURNS TO ROOM.
--- NOTE | 2018-08-10 16:01 | NUR ---
History, Chart, Medications and Allergies reviewed before start of procedure. Patient confirms NPO status and agrees with scheduled surgery. Lungs clear T/O to Auscultation. Pre-Op teaching done. Pt verbalizes understanding.
--- NOTE | 2018-08-10 16:06 | NUR ---
VALERIY KINCAIDO TO ACCESSED MEDIPORT IN [facility]ED WITH [facility].
--- NOTE | 2018-08-10 16:07 | NUR ---
AWAITING DR ATKINSON'S ARRIVAL.
--- NOTE | 2018-08-10 17:12 | NUR ---
08/10/18 1712 Marta Schaefer History, Chart, Medications and Allergies reviewed before start of procedure. MAC CASE WITH DR. ROBERSON. SEE ANETHESIA RECORD FOR CARE.
[2018-08-10 18:40] LABS: BASOPHILS ABSOLUTE AUTO 0.02 K/mm3 (0.00-0.23); BASOPHILS PERCENT AUTO 0 % (0-2); EOSINOPHILS ABSOLUTE AUTO 0.21 K/mm3 (0.00-0.68); EOSINOPHILS PERCENT AUTO 2 % (0-6); Hematocrit 19.6 % (33.0-51.0); IMMATURE GRAN ABSOLUTE AUTO 0.25 K/mm3 (0.00-0.10); IMMATURE GRAN PERCENT AUTO 2 % (0-1); LYMPHOCYTES ABSOLUTE AUTO 1.65 K/mm3 (0.84-5.20); LYMPHOCYTES PERCENT AUTO 14 % (21-46); MONOCYTES ABSOLUTE AUTO 0.78 K/mm3 (0.16-1.47); MONOCYTES PERCENT AUTO 7 % (4-13); Mean Corpuscular HGB 29.4 pg (26.0-34.0); Mean Corpuscular HGB Conc 30.6 g/dL (31.5-36.5); Mean Corpuscular Volume 96 fL (80-100); Mean Platelet Volume 9.9 fL (9.1-12.4); NEUTROPHILS PERCENT AUTO 75 % (41-73); Platelet Count 222 K/mm3 (150-400); RDW Coefficient Variation 14.2 % (11.7-14.2); RDW Standard Deviation 49.7 fL (35.1-46.3); Red Blood Cell Count 2.04 M/mm3 (3.80-5.20); White Blood Cell Count 11.71 K/mm3 (4.00-11.30)
--- NOTE | 2018-08-10 18:58 | NUR ---
PT POST SCOPE. VSS. PT CONT TO HAVE LIQUID STOOL. FLUIDS ANFD PROTONIX RESUMED ORDERED. PT WILL HAVE TO BE ON PUREE DIET. PT ORDERED TO HAVE MEDS CRUSHED OR CHANGED TO LIQUID FORM, PHARMACY REVIEWING CURRENT ORDERS. PT PAIN AND ANXIETY MANAGED PER EMAR. H+H DROPPED POST PROCEDURE, PHYSICIAN NOTIFIED AND PRBC'S ORDERED.
--- NOTE | 2018-08-10 23:00 | NUR ---
UNIT 1 OF 1 PRBC'S STARTED.
--- NOTE | 2018-08-11 03:00 | NUR ---
UNTI 1 OF 1 PRBC'S COMPLETED. NO C/O SOB NOTED, BBS CTA. 320ML TOTAL BLOOD INFUSED, TOLERATED WELL. SAFETY MEASURES IN PLACE. WILL CONTINUE TO MONITOR.
--- NOTE | 2018-08-11 03:00 | NUR ---
MIDNIGHT ZOSYN STARTED DUE TO DELAY DURING PRBC INFUSION. WILL CONTINUE TO MONITOR.
--- NOTE | 2018-08-11 04:07 | NUR ---
STATES THAT SHE STILL FEELS A LITTLE WEAK, AND IS STILL ANXIOUS BUT DOESN'T KNOW WHY. 1 UNIT OF PRBC'S INFUSING PER MD ORDERS, TOLERATED WELL. DENIES PAIN, DISCOMFORT, OR FURTHER NEEDS AT THIS TIME. SAFETY MEASURES IN PLACE. WILL GIVE HAND OFF TO ONCOMING SHIFT USING SBAR DURING BEDSIDE REPORT.
[2018-08-11 04:38] LABS: BASOPHILS ABSOLUTE AUTO 0.02 K/mm3 (0.00-0.23); BASOPHILS PERCENT AUTO 0 % (0-2); EOSINOPHILS ABSOLUTE AUTO 0.23 K/mm3 (0.00-0.68); EOSINOPHILS PERCENT AUTO 2 % (0-6); Hematocrit 21.6 % (33.0-51.0); Hemoglobin 6.7 g/dL (11.5-16.0); IMMATURE GRAN ABSOLUTE AUTO 0.24 K/mm3 (0.00-0.10); IMMATURE GRAN PERCENT AUTO 3 % (0-1); LYMPHOCYTES ABSOLUTE AUTO 1.55 K/mm3 (0.84-5.20); LYMPHOCYTES PERCENT AUTO 16 % (21-46); MONOCYTES ABSOLUTE AUTO 0.88 K/mm3 (0.16-1.47); MONOCYTES PERCENT AUTO 9 % (4-13); Mean Platelet Volume 10.2 fL (9.1-12.4); NEUTROPHILS ABSOLUTE AUTO 6.87 K/mm3 (1.96-9.15); NEUTROPHILS PERCENT AUTO 70 % (41-73); Platelet Count 200 K/mm3 (150-400); RDW Coefficient Variation 17.1 % (11.7-14.2); RDW Standard Deviation 56.7 fL (35.1-46.3); Red Blood Cell Count 2.39 M/mm3 (3.80-5.20); White Blood Cell Count 9.79 K/mm3 (4.00-11.30)
[2018-08-11 04:45] LABS: Mean Corpuscular Volume 90 fL (80-100)
--- NOTE | 2018-08-11 18:04 | NUR ---
SHIFT SUMMARY: PT HAS REPORTED ANXIETY X4. MEDICATED PER EMAR X2. PT REPORTS SHE WAS ABLE TO SELF DISTRACT AND REORIENT THE OTHER 2 TIMES. SHE RECIEVED A UNIT OF PRBC'S, NO ADVERSE S/E NOTED. SHE REMAINS ON 2L O2 VIA NC TO MAINTAIN SATS >90%. ANTIBIOTIC SCHEDULE IS ALTERED DUE TO ADMIN OF BLOOD PRODUCTS. PER PHARMACY THE NEXT DOSE OF ZOSYN SHOULD BE GIVEN AT 1999 TO GET BACK ON SCHEDULE. WILL NOTIFY NEXT SHIFT RN OF ABX SCHEDULE CHANGE. SHE IS ABLE TO TRANSFER INDEPEND. FROM BED TO BSC. TOLERATING SOFT DIET WELL. WILL CTM UNTIL REPORT GIVEN.
[2018-08-11 18:24] LABS: BASOPHILS ABSOLUTE AUTO 0.02 K/mm3 (0.00-0.23); BASOPHILS PERCENT AUTO 0 % (0-2); EOSINOPHILS ABSOLUTE AUTO 0.24 K/mm3 (0.00-0.68); EOSINOPHILS PERCENT AUTO 2 % (0-6); Hematocrit 28.1 % (33.0-51.0); IMMATURE GRAN PERCENT AUTO 3 % (0-1); LYMPHOCYTES ABSOLUTE AUTO 1.51 K/mm3 (0.84-5.20); LYMPHOCYTES PERCENT AUTO 13 % (21-46); MONOCYTES ABSOLUTE AUTO 1.42 K/mm3 (0.16-1.47); MONOCYTES PERCENT AUTO 12 % (4-13); Mean Corpuscular HGB 28.8 pg (26.0-34.0); Mean Corpuscular Volume 90 fL (80-100); NEUTROPHILS ABSOLUTE AUTO 8.35 K/mm3 (1.96-9.15); NEUTROPHILS PERCENT AUTO 71 % (41-73); Platelet Count 212 K/mm3 (150-400); RDW Coefficient Variation 16.9 % (11.7-14.2); RDW Standard Deviation 55.1 fL (35.1-46.3); Red Blood Cell Count 3.12 M/mm3 (3.80-5.20); White Blood Cell Count 11.84 K/mm3 (4.00-11.30)
[2018-08-11 18:52] LABS: Percent Saturation 70.5 % (15.0-50.0)
[2018-08-12 05:52] LABS: BASOPHILS ABSOLUTE AUTO 0.03 K/mm3 (0.00-0.23); BASOPHILS PERCENT AUTO 0 % (0-2); EOSINOPHILS ABSOLUTE AUTO 0.25 K/mm3 (0.00-0.68); EOSINOPHILS PERCENT AUTO 3 % (0-6); Hematocrit 27.6 % (33.0-51.0); Hemoglobin 8.8 g/dL (11.5-16.0); IMMATURE GRAN ABSOLUTE AUTO 0.19 K/mm3 (0.00-0.10); IMMATURE GRAN PERCENT AUTO 2 % (0-1); LYMPHOCYTES ABSOLUTE AUTO 1.49 K/mm3 (0.84-5.20); LYMPHOCYTES PERCENT AUTO 17 % (21-46); MONOCYTES PERCENT AUTO 13 % (4-13); Mean Corpuscular HGB 28.4 pg (26.0-34.0); Mean Corpuscular HGB Conc 31.9 g/dL (31.5-36.5); Mean Corpuscular Volume 89 fL (80-100); Mean Platelet Volume 10.2 fL (9.1-12.4); NEUTROPHILS ABSOLUTE AUTO 5.68 K/mm3 (1.96-9.15); NEUTROPHILS PERCENT AUTO 65 % (41-73); Platelet Count 210 K/mm3 (150-400); RDW Coefficient Variation 16.9 % (11.7-14.2); RDW Standard Deviation 54.7 fL (35.1-46.3); White Blood Cell Count 8.74 K/mm3 (4.00-11.30)
[2018-08-12 06:19] LABS: Anion Gap 7 mmol/L (6-16); Blood Urea Nitrogen 10 mg/dL (8-24); Bun/Creatinine Ratio 11.7 (12.0-20.0); CO2, Blood 25 mmol/L (21-32); Calcium, Blood 8.4 mg/dL (8.5-10.1); Chloride, Blood 113 mmol/L (98-108); Creatinine, Blood 0.85 mg/dL (0.40-1.00); Glomerular Filtration Rate >60 (60-); Glucose, Blood 100 mg/dL (70-99); Potassium, Blood 3.2 mmol/L (3.5-5.5); Sodium, Blood 145 mmol/L (136-145)
--- NOTE | 2018-08-12 17:26 | NUR ---
PT HAS BEEN AOX4 TODAY AND COOPERATIVE OF CARE. PT CONTINUES TO HAVE PANIC ATTACKS X4 TODAY. PT IS REDIRECTED AND TREATED PER EMAR TO RELIEVE SYMPTOMS. PT CONTINUES TO HAVE SOB AND THIS HAS BEEN DISCUSSED WITH DR GOMEZ. PT IS CONTINUE TO BE MONITORED.PT IS A ONE PERSON ASSIST TO BEDSIDE COMODE.
[2018-08-13 05:18] LABS: BASOPHILS ABSOLUTE AUTO 0.02 K/mm3 (0.00-0.23); BASOPHILS PERCENT AUTO 0 % (0-2); EOSINOPHILS ABSOLUTE AUTO 0.36 K/mm3 (0.00-0.68); EOSINOPHILS PERCENT AUTO 4 % (0-6); Hematocrit 30.5 % (33.0-51.0); Hemoglobin 9.8 g/dL (11.5-16.0); IMMATURE GRAN ABSOLUTE AUTO 0.15 K/mm3 (0.00-0.10); IMMATURE GRAN PERCENT AUTO 2 % (0-1); LYMPHOCYTES ABSOLUTE AUTO 1.51 K/mm3 (0.84-5.20); LYMPHOCYTES PERCENT AUTO 16 % (21-46); MONOCYTES PERCENT AUTO 10 % (4-13); Mean Corpuscular HGB 28.8 pg (26.0-34.0); Mean Corpuscular HGB Conc 32.1 g/dL (31.5-36.5); Mean Corpuscular Volume 90 fL (80-100); Mean Platelet Volume 10.2 fL (9.1-12.4); NEUTROPHILS PERCENT AUTO 69 % (41-73); Platelet Count 253 K/mm3 (150-400); RDW Coefficient Variation 16.6 % (11.7-14.2); RDW Standard Deviation 53.8 fL (35.1-46.3); White Blood Cell Count 9.34 K/mm3 (4.00-11.30)
[2018-08-13 05:33] LABS: Anion Gap 6 mmol/L (6-16); Blood Urea Nitrogen 10 mg/dL (8-24); Bun/Creatinine Ratio 12.3 (12.0-20.0); CO2, Blood 28 mmol/L (21-32); Calcium, Blood 8.9 mg/dL (8.5-10.1); Chloride, Blood 110 mmol/L (98-108); Creatinine, Blood 0.81 mg/dL (0.40-1.00); Glomerular Filtration Rate >60 (60-); Glucose, Blood 92 mg/dL (70-99); Potassium, Blood 3.3 mmol/L (3.5-5.5); Sodium, Blood 144 mmol/L (136-145)
--- NOTE | 2018-08-13 06:41 | NUR ---
SHIFT SUMMARY PT ADMITTED FOR PNEUMONIA, COPD EXACERBATION. SHE MAINTAINS SATS >95% ON 2L VIA NC. PT DOES REPORT SOB ON EXERTION. PT IS INDEP TO THE BSC. MEDICATED FOR PAIN AND ANXIETY PER EMAR. PILLS CRUSHED FOR ESOPHAGEAL STRICTURE AND ULCERS. MEDIPORT TO RIGHT UPPER CHEST RUNNING TKO AT THIS TIME. BREATHING TX PER RT. WILL CTM UNTIL PASS TO NEXT SHIFT.
--- NOTE | 2018-08-13 08:11 | NUR ---
PT SITTING UP ON EDGE OF THE BED REElizabeth ATIVAN WITH HER MORNING MEDS STATED IT HAS HELPED HER YESTERDAY AND LAST NIGHT TO REST AND TO FEEL LIKE SHE IS BREATHING BETTER PT REQ SL DOSE VS CRUSHED LIKE THE REST OF HER MEDS
--- NOTE | 2018-08-13 11:03 | NUR ---
po pain meds given pt reports haivng a rx to a new inhaled med stated it made her have some nausea and sob pt also had anxiety r/t to this pt stated she is feeling better we are substituting for spiriva
--- NOTE | 2018-08-13 17:45 | NUR ---
pt eating dinner
--- NOTE | 2018-08-14 03:50 | NUR ---
SPOKE W/ DR. WINTERS REGARDING PT'S BP OF 199/101. MEDIPORT WAS DEACCESSED YESTERDAY AND SHE HAS NO PERIPHERAL IV. ORDERED TO GIVE SCHEDULED PO BP MEDS EARLY AND MEDICATE FOR PAIN AND ANXIETY. PT MEDICATED PER EMAR. OF 424 PT'S BP HAD IMPROVED, DOWN TO 167/72, HR 73, O2 98% ON 2L. WILL CTM.
[2018-08-14 06:17] LABS: BASOPHILS ABSOLUTE AUTO 0.04 K/mm3 (0.00-0.23); BASOPHILS PERCENT AUTO 0 % (0-2); EOSINOPHILS ABSOLUTE AUTO 0.38 K/mm3 (0.00-0.68); EOSINOPHILS PERCENT AUTO 4 % (0-6); Hematocrit 31.3 % (33.0-51.0); Hemoglobin 9.9 g/dL (11.5-16.0); IMMATURE GRAN ABSOLUTE AUTO 0.11 K/mm3 (0.00-0.10); IMMATURE GRAN PERCENT AUTO 1 % (0-1); LYMPHOCYTES ABSOLUTE AUTO 1.69 K/mm3 (0.84-5.20); LYMPHOCYTES PERCENT AUTO 17 % (21-46); MONOCYTES ABSOLUTE AUTO 1.03 K/mm3 (0.16-1.47); MONOCYTES PERCENT AUTO 10 % (4-13); Mean Corpuscular HGB 28.8 pg (26.0-34.0); Mean Corpuscular HGB Conc 31.6 g/dL (31.5-36.5); Mean Corpuscular Volume 91 fL (80-100); Mean Platelet Volume 9.9 fL (9.1-12.4); NEUTROPHILS ABSOLUTE AUTO 6.97 K/mm3 (1.96-9.15); NEUTROPHILS PERCENT AUTO 68 % (41-73); Platelet Count 278 K/mm3 (150-400); RDW Coefficient Variation 17.2 % (11.7-14.2); RDW Standard Deviation 53.6 fL (35.1-46.3); Red Blood Cell Count 3.44 M/mm3 (3.80-5.20); White Blood Cell Count 10.22 K/mm3 (4.00-11.30)
[2018-08-14 07:05] LABS: Chloride, Blood 108 mmol/L (98-108); Potassium, Blood 3.4 mmol/L (3.5-5.5); Sodium, Blood 144 mmol/L (136-145)
[2018-08-14 07:06] LABS: Anion Gap 9 mmol/L (6-16); Blood Urea Nitrogen 12 mg/dL (8-24); Bun/Creatinine Ratio 15.4 (12.0-20.0); CO2, Blood 27 mmol/L (21-32); Calcium, Blood 9.3 mg/dL (8.5-10.1); Creatinine, Blood 0.78 mg/dL (0.40-1.00); Glomerular Filtration Rate >60 (60-); Glucose, Blood 84 mg/dL (70-99)
--- NOTE | 2018-08-15 04:55 | NUR ---
SHIFT SUMMARY: NO ACUTE CHANGES THIS SHIFT. SATS STABLE ON 2L O2 PER NC. DENIES CHEST PAIN. REPORTS SOB; RECIEVED RT TX. PT INDEPENDENT TO BSC. MEDICATED WITH OXY ONCE THIS SHIFT. ALL PILLS CRUSHED FOR ESOPHOGEAL ULCERS. YEE PO, DENIES N/V. NO CONCERNS AT THIS TIME. PT REPORTS FEELING READY TO GO HOME. WILL DISCHARGE PENDING POWER OUTTAGE.
[2018-08-15] MEDS ORDERED: CARV6.25 PO (12:40)
[2018-08-15] MEDS ORDERED: ATOR20 PO (12:41)
[2018-08-15] MEDS ORDERED: SACC250C PO (12:41)
[2018-08-15] MEDS ORDERED: LISI5 PO (12:41)
[2018-08-15] MEDS ORDERED: TICA90TA PO (12:44)
--- NOTE | 2018-08-15 13:21 | NUR ---
DISCHARGE PT DISCHARGED HOME FROM UNIT AT APROX 1315. PT GIVEN WRITTEN AND VERBAL DISCHARGE INSTRUCTIONS AND VERBALIZED UNDERSTANDING. NEW RX'S CALLED TO [facility] IN [place], PT VERBALIZED UNDERSTANDING OF NEW MEDICATIONS AND DIRECTIONS ON HOW TO TAKE THEM. SENT HOME WITH HOME O2 [facility] INTO PT ROOM TO PROVIDE EDUCATION ON HOW TO USE. WHEELCHAIR TO CAR.
--- NOTE | 2018-08-15 16:02 | NUR ---
pt called, rashardela that was ordered on discharge in 400$ without prior authorization from insurance company. Dr Machado notifed, ordered Plavix 300mg loading dose than 75mg Daily until pt sees primary care and authorization from insurance comes through. Medication called to [facility] in [place]. Pt notified of medical changes.
== END 2018-08-15 13:21 | disposition home or self-care (01) | DRG 853 ==
LOC: ER 21:53 → SURS 08-03 00:28 → ICUW 08-03 00:28 → PCU 08-06 10:09 → SURS 08-07 17:08
PROVIDERS: Emergency Medicine; Family Medicine; Hospitalist; Internal Medicine Critical Care Medicine; Nurse Practitioner Acute Care; ADMIT Internal Medicine
PROC: 0BH18EZ Insertion of Endotracheal Airway into Trachea, Via Natural or Artificial Opening Endoscopic (ICD-10-PCS; principal; 2018-08-02)
PROC: 5A1945Z Respiratory Ventilation, 24-96 Consecutive Hours (ICD-10-PCS; 2018-08-02)
PROC: 5A09357 Assistance with Respiratory Ventilation, Less than 24 Consecutive Hours, Continuous Positive Airway Pressure (ICD-10-PCS; 2018-08-02)
PROC: B2111ZZ Fluoroscopy of Multiple Coronary Arteries using Low Osmolar Contrast (ICD-10-PCS; 2018-08-04)
PROC: 02703DZ Dilation of Coronary Artery, One Artery with Intraluminal Device, Percutaneous Approach (ICD-10-PCS; 2018-08-04)
PROC: 0DJ08ZZ Inspection of Upper Intestinal Tract, Via Natural or Artificial Opening Endoscopic (ICD-10-PCS; 2018-08-10)
PROC: 30233N1 Transfusion of Nonautologous Red Blood Cells into Peripheral Vein, Percutaneous Approach (ICD-10-PCS; 2018-08-11)
DX: A41.9 Sepsis, unspecified organism (principal); I50.43 Acute on chronic combined systolic (congestive) and diastolic (congestive) heart failure; I21.4 Non-ST elevation (NSTEMI) myocardial infarction; R57.0 Cardiogenic shock; K22.11 Ulcer of esophagus with bleeding; J96.21 Acute and chronic respiratory failure with hypoxia; J96.22 Acute and chronic respiratory failure with hypercapnia; J18.9 Pneumonia, unspecified organism; R64 Cachexia; Z68.1 Body mass index [BMI] 19.9 or less, adult; E44.0 Moderate protein-calorie malnutrition; J44.1 Chronic obstructive pulmonary disease with (acute) exacerbation; C78.00 Secondary malignant neoplasm of unspecified lung; F11.20 Opioid dependence, uncomplicated; D62 Acute posthemorrhagic anemia; J44.0 Chronic obstructive pulmonary disease with (acute) lower respiratory infection; Z79.82 Long term (current) use of aspirin; R65.20 Severe sepsis without septic shock; Z85.3 Personal history of malignant neoplasm of breast; Z85.43 Personal history of malignant neoplasm of ovary; Z87.891 Personal history of nicotine dependence; I48.0 Paroxysmal atrial fibrillation; G89.4 Chronic pain syndrome; R73.9 Hyperglycemia, unspecified; Z99.81 Dependence on supplemental oxygen; K21.9 Gastro-esophageal reflux disease without esophagitis; I16.0 Hypertensive urgency; K22.2 Esophageal obstruction; I27.20 Pulmonary hypertension, unspecified; I08.1 Rheumatic disorders of both mitral and tricuspid valves; M94.0 Chondrocostal junction syndrome [Tietze]; E87.6 Hypokalemia; K44.9 Diaphragmatic hernia without obstruction or gangrene; I25.10 Atherosclerotic heart disease of native coronary artery without angina pectoris; F41.0 Panic disorder [episodic paroxysmal anxiety]; I11.0 Hypertensive heart disease with heart failure
CPT/HCPCS: 31500; 31720; 36415; 36600; 51702; 71045; 80048; 80053; 80061; 80069; 81001; 82272; 82728; 82803; 82947; 83540; 83550; 83605; 83735; 83880; 84145; 84484; 85014; 85018; 85025; 85347; 85730; 86850; 86900; 86901; 86923; 87040; 87070; 87205; 87804; 90686; 92928; 93005; 93010; 93308; 93321; 93454; 93571; 94002; 94003; 94640; 94644; 94660; 94664; 94667; 94760; 96361-59; 96365-59; 96375-59; 97110; 97116; 97162; 97165; 97530; 97535; 98960; 99152; 99153; 99291-25; 99292; 99407; C1726; C1769; C1876; C1887; C1894; C8929; C9113; J0330; J1100; J1642; J1644; J1650; J1940; J2060; J2250; J2405; J2543; J2916; J2930; J3010; J3370; J3480; J7030; J7040; J7060; J7120; P9016; Q9957; Q9967

== ENCOUNTER 2020-03-25 13:09 | Emergency (ER) | payer OTHER ==
[~2020-03-25] VITALS: Ht 167.6 cm; Wt 63.5 kg
[~2020-03-25 13:09] MED LIST changes: +**INCOMPLETE MED REC; +ATOR20 PO; +CARV6.25 PO; +Colace250 MG PO; +LISI5 PO; +Nystatin100000 UN1 PO; +SACC250C PO; +TICA90TA PO
[2020-03-25 15:10] LABS: BASOPHILS ABSOLUTE AUTO 0.06 K/mm3 (0.00-0.23); BASOPHILS PERCENT AUTO 1 % (0-2); EOSINOPHILS ABSOLUTE AUTO 0.11 K/mm3 (0.00-0.68); EOSINOPHILS PERCENT AUTO 1 % (0-6); Hematocrit 42.2 % (33.0-51.0); IMMATURE GRAN ABSOLUTE AUTO 0.04 K/mm3 (0.00-0.10); IMMATURE GRAN PERCENT AUTO 1 % (0-1); LYMPHOCYTES ABSOLUTE AUTO 1.09 K/mm3 (0.84-5.20); LYMPHOCYTES PERCENT AUTO 13 % (21-46); MONOCYTES ABSOLUTE AUTO 0.74 K/mm3 (0.16-1.47); MONOCYTES PERCENT AUTO 9 % (4-13); Mean Corpuscular HGB 28.8 pg (26.0-34.0); Mean Corpuscular HGB Conc 30.8 g/dL (31.5-36.5); Mean Corpuscular Volume 93 fL (80-100); NEUTROPHILS ABSOLUTE AUTO 6.68 K/mm3 (1.96-9.15); NEUTROPHILS PERCENT AUTO 77 % (41-73); Platelet Count 251 K/mm3 (150-400); RDW Coefficient Variation 12.6 % (11.7-14.2); RDW Standard Deviation 42.9 fL (35.1-46.3); Red Blood Cell Count 4.52 M/mm3 (3.80-5.20); White Blood Cell Count 8.72 K/mm3 (4.00-11.30)
[2020-03-25 15:17] LABS: Alanine Aminotransfer (ALT/SGP 22 U/L (12-78); Albumin, Blood 3.2 g/dL (3.4-5.0); Albumin/Globulin Ratio 0.7 (0.8-1.8); Alk Phos 101 U/L (50-136); Anion Gap 11 mmol/L (6-16); Aspartate Aminotrans (AST/SGOT 40 U/L (12-37); Bilirubin, Total 0.4 mg/dL (0.1-1.0); Blood Urea Nitrogen 12 mg/dL (8-24); CO2, Blood 29 mmol/L (21-32); Calcium, Blood 9.8 mg/dL (8.5-10.1); Chloride, Blood 96 mmol/L (98-108); Globulin, Blood 4.9 g/dL (2.2-4.0); Glomerular Filtration Rate >60 (60-); Glucose, Blood 84 mg/dL (70-99); Magnesium, Blood 1.7 mg/dL (1.6-2.4); Potassium, Blood 3.5 mmol/L (3.5-5.5); Sodium, Blood 136 mmol/L (136-145); Total Protein, Blood 8.1 g/dL (6.4-8.2); Troponin I 0.018 ng/mL (0.000-0.040)
[2020-03-25 18:18] LABS: Source, Urine Clean Catch
[2020-03-25 18:58] LABS: Bilirubin, Urine 1+ (Neg); Blood, Urine 1+ (Neg); Glucose Qualitative, Urine Neg (Neg); Ketones, Urine 3+ (Neg); Leukocyte Esterase, Urine Neg (Neg); Nitrite, Urine Neg (Neg); Protein, Urine 2+ (Neg); Specific Gravity, Urine 1.015 (1.003-1.022); Urobilinogen, Urine NORM (Normal); pH, Urine 6.5 (5.0-8.0)
[2020-03-25 18:59] LABS: Appearance, Urine Clear (Clear); Color, Urine Yellow (P-Yellow)
[2020-03-25 19:00] LABS: Bacteria Rare /hpf; Red Blood Cells, Urine 0-2 /hpf (0-2); Squamous Epithelial Cells Rare /hpf (Few); White Blood Cells, Urine 0-2 /hpf (0-5)
[2020-03-25] MEDS ORDERED: Catapres0.1 MG PO (19:11)
== END 2020-03-25 19:30 | disposition home or self-care (01) ==
LOC: ER 13:09
PROVIDERS: Emergency Medicine
DX: F11.23 Opioid dependence with withdrawal (principal); J44.9 Chronic obstructive pulmonary disease, unspecified; I11.0 Hypertensive heart disease with heart failure; I50.42 Chronic combined systolic (congestive) and diastolic (congestive) heart failure; I48.0 Paroxysmal atrial fibrillation; Z79.899 Other long term (current) drug therapy; Z79.82 Long term (current) use of aspirin; Z87.891 Personal history of nicotine dependence
CPT/HCPCS: 36415; 51701; 71045; 74177; 80053; 81001; 83735; 84484; 85025; 93005; 93010; 96361-59; 96374-59; 99284-25; J2405; J7120; Q9967

== ENCOUNTER 2020-04-23 10:44 | Inpatient (IN) | payer OTHER ==
[~2020-04-23] VITALS: Ht 167.6 cm; Wt 55.5 kg
[~2020-04-23 10:44] MED LIST changes: -ATOR20 PO; -CARV6.25 PO; +Catapres0.1 MG PO; -FURO20 PO; -LISI5 PO; -MIRT30 PO; -PROAIR RESPICL90 MCG INH; -TIOT18 INH
[2020-04-23 11:20] LABS: BASOPHILS ABSOLUTE AUTO 0.05 K/mm3 (0.00-0.23); BASOPHILS PERCENT AUTO 1 % (0-2); EOSINOPHILS ABSOLUTE AUTO 0.09 K/mm3 (0.00-0.68); EOSINOPHILS PERCENT AUTO 1 % (0-6); Hematocrit 36.9 % (33.0-51.0); Hemoglobin 10.9 g/dL (11.5-16.0); IMMATURE GRAN ABSOLUTE AUTO 0.02 K/mm3 (0.00-0.10); IMMATURE GRAN PERCENT AUTO 0 % (0-1); LYMPHOCYTES PERCENT AUTO 13 % (21-46); MONOCYTES ABSOLUTE AUTO 0.55 K/mm3 (0.16-1.47); MONOCYTES PERCENT AUTO 7 % (4-13); Mean Corpuscular HGB 27.6 pg (26.0-34.0); Mean Corpuscular HGB Conc 29.5 g/dL (31.5-36.5); Mean Corpuscular Volume 93 fL (80-100); NEUTROPHILS ABSOLUTE AUTO 5.89 K/mm3 (1.96-9.15); NEUTROPHILS PERCENT AUTO 77 % (41-73); Platelet Count 252 K/mm3 (150-400); RDW Coefficient Variation 14.6 % (11.7-14.2); RDW Standard Deviation 49.3 fL (35.1-46.3); Red Blood Cell Count 3.95 M/mm3 (3.80-5.20)
[2020-04-23 11:41] LABS: Alanine Aminotransfer (ALT/SGP 18 U/L (12-78); Albumin, Blood 2.7 g/dL (3.4-5.0); Albumin/Globulin Ratio 0.7 (0.8-1.8); Alk Phos 80 U/L (50-136); Anion Gap 9 mmol/L (6-16); Aspartate Aminotrans (AST/SGOT 21 U/L (12-37); Bilirubin, Total 0.6 mg/dL (0.1-1.0); Blood Urea Nitrogen 10 mg/dL (8-24); Bun/Creatinine Ratio 11.2 (12.0-20.0); CO2, Blood 33 mmol/L (21-32); Calcium, Blood 9.2 mg/dL (8.5-10.1); Chloride, Blood 99 mmol/L (98-108); Globulin, Blood 4.1 g/dL (2.2-4.0); Glomerular Filtration Rate >60 (60-); Glucose, Blood 98 mg/dL (70-99); Potassium, Blood 3.2 mmol/L (3.5-5.5); Sodium, Blood 141 mmol/L (136-145); Total Protein, Blood 6.8 g/dL (6.4-8.2); Troponin I 0.035 ng/mL (0.000-0.040)
[2020-04-23] MEDS ORDERED: TIOT18 INH (12:58)
[2020-04-23] MEDS ORDERED: ALBU90OI INH (12:58)
[2020-04-23] MEDS ORDERED: REMERON15 MG PO (12:59)
[2020-04-23] MEDS ORDERED: FURO40 PO (12:59)
[2020-04-23] MEDS ORDERED: ATOR40TA PO (13:00)
[2020-04-23] MEDS ORDERED: LISI5 PO (13:00)
[2020-04-23] MEDS ORDERED: Carvedilol12.5 MG PO (13:00)
[2020-04-23] MEDS ORDERED: CLOP75 PO (13:01)
[2020-04-23] MEDS ORDERED: Prozac40 MG PO (13:01)
[2020-04-23] MEDS ORDERED: PANT40 PO (13:03)
[2020-04-23] MEDS ORDERED: Oxazepam10 MG PO (14:00)
--- NOTE | 2020-04-23 18:30 | NUR ---
SHIFT SUMMARY: ASSUMED CARE OF PATIENT UPON HER ARRIVAL FROM ED AT 1555. USING O2 @ 3 L/MIN NC, WHICH IS HER BASELINE. LUNG SOUNDS CLEAR IN UPPER LOBES, DIM WITH EXP WHEEZES IN BILATERAL LL, NO COUGH. HRR, ON TELEMETRY. HAD BM TODAY IN ED. URINARY FREQUENCY D/T LASIX ADMINISTRATION, SO PUREWICK FEMALE EXTERNAL CATHETER PLACED, DRAINING WELL. C/O 8/10 PAIN IN R SIDE OF BACK FROM SCIATICA; MEDICATED PER EMAR WITH SOME RELIEF. FLU VACCINE GIVEN, LOT NUMBER NOT ENTERED BECAUSE SYRINGE WAS PLACED IN SHARPS CONTAINER, UNABLE TO TAKE ANOTHER DOSE OUT OF PYXIS. HAS MEDIPORT IN RU [place]ST THAT IS NOT ACCESSED. APPETITE [facility]IR. MAY NEED ADDITIONAL HELP AT HOME UPON D/C.
--- NOTE | 2020-04-23 21:07 | NUR ---
PHYSICIAN COMMUNICATION CONTACTED MARKETING FINANCE MANAGER PHYSICIAN, NO MORALES, NO NOTIFY HER THAT THE PATIENT WAS REQUESTING A SLEEP AID. NOTIFIED HER THAT THE PATIENT WAS ON REMRON AND HAD TRIED TYLENOL PM AND MELATONIN WITHOUT SIGNIFICANT HELP. TANNER MORALES SAID THAT SHE WOULD ORDER AMBIEN FOR THE PATIENT AND TO CANCEL THE ORDER IF THE PATIENT HAS ANY ADVERSE REACTIONS TO IT.
[2020-04-24 04:55] LABS: BASOPHILS ABSOLUTE AUTO 0.01 K/mm3 (0.00-0.23); BASOPHILS PERCENT AUTO 0 % (0-2); EOSINOPHILS PERCENT AUTO 0 % (0-6); Hematocrit 34.4 % (33.0-51.0); Hemoglobin 10.3 g/dL (11.5-16.0); IMMATURE GRAN ABSOLUTE AUTO 0.05 K/mm3 (0.00-0.10); IMMATURE GRAN PERCENT AUTO 1 % (0-1); LYMPHOCYTES ABSOLUTE AUTO 0.72 K/mm3 (0.84-5.20); LYMPHOCYTES PERCENT AUTO 8 % (21-46); MONOCYTES ABSOLUTE AUTO 0.81 K/mm3 (0.16-1.47); MONOCYTES PERCENT AUTO 10 % (4-13); Mean Corpuscular HGB 27.2 pg (26.0-34.0); Mean Corpuscular HGB Conc 29.9 g/dL (31.5-36.5); Mean Corpuscular Volume 91 fL (80-100); Mean Platelet Volume 11.1 fL (9.1-12.4); NEUTROPHILS ABSOLUTE AUTO 6.97 K/mm3 (1.96-9.15); NEUTROPHILS PERCENT AUTO 81 % (41-73); Platelet Count 234 K/mm3 (150-400); RDW Coefficient Variation 14.6 % (11.7-14.2); RDW Standard Deviation 48.3 fL (35.1-46.3); Red Blood Cell Count 3.78 M/mm3 (3.80-5.20); White Blood Cell Count 8.56 K/mm3 (4.00-11.30)
[2020-04-24 05:09] LABS: Bun/Creatinine Ratio 13.5 (12.0-20.0); Calcium, Blood 9.6 mg/dL (8.5-10.1); Creatinine, Blood 1.04 mg/dL (0.40-1.00); Potassium, Blood 3.8 mmol/L (3.5-5.5)
--- NOTE | 2020-04-24 06:04 | NUR ---
SHIFT SUMMARY PATIENT ALERT AND ORIENTED. HAS HAD NO COMPLAINTS OF SHORTNESS OF BREATH OR CHEST PAIN. PATIENT STAYED IN BED ALL NIGHT AND ATTEMPTED TO GET SOME REST. PATIENT MEDICATED PER EMAR FOR PAIN. IV PATENT AND FLUSHED. BED IN LOWEST POSITION WITH WHEELS LOCKED. CALL LIGHT WITHIN REACH. REPORT GIVEN TO ONCOMING RN.
--- NOTE | 2020-04-24 16:45 | NUR ---
SHIFT SUMMARY PT AWAKE DURING SHIFT REPORT, RESTING QUIETLY. PT ADMITTED FOR CHF D/T WEAKNESS AND SOB WITH EXERTION. HX OF COPD WELL, ON 3L O2 AT BASELINE. PT WITH HX OF BEING NONCOMPLIANT WITH MEDS AND TX. PT HAS BEEN UP TO BSC THRU OUT THE DAY. BECOMES SOB AT TIMES, MOSTLY D/T PANICK ATTACKS. PT ENCOURAGED TO DO PURSED LIP BREATHING AND LEARNING TO RELAX. O2 SATS REMAIN WNL'S, BUT PT JUST FEELS LIKE SHE IS UNABLE TO BREATHE. DR GUEVARA IN TO SEE PT THIS AM. POSSIBLE D/C TO REHAB BEFORE GOING BACK HOME WITH SON. PT TO DISCUSS WITH SON TODAY. PT IS A&O, ABLE TO MAKE NEEDS KNOWN. CALL LT IN REACH. DENIES FURTHER NEEDS.
--- NOTE | 2020-04-24 19:22 | NUR ---
RECEIVED REPORT FROM KADEN JOSE. PT IN BED WATCHING TV. RESP EVEN. STATES HAVING SOB EARLIER AND HOW SHE IS TRYING TO PRACTICE BREATHING RIGHT. ENCOURAGED PT TO DO PURSED LIP BREATHING. WILL MONITOR AND PROVIDE CARE T/O SHIFT. CALL LT IN REACH.
--- NOTE | 2020-04-24 20:01 | NUR ---
RECEIVING BREATHING TREATMENT.
--- NOTE | 2020-04-24 23:56 | NUR ---
PT RESTING QUIETLY. CALL LT IN REACH.
--- NOTE | 2020-04-25 04:29 | NUR ---
SHIFT SUMMARY: CONTINUES TO HAVE SOB WITH EXERTION AND PERIODS OF ANXIETY R/T SOB. ENCOURAGED PT TO PRACTICE PURSED LIP BREATHING. PT STATES SHE TRIES. TYLENOL GIVEN FOR SCIATIC PAIN WITH [facility]IR RESULTS. PLAN IS TO CONTINUE TO DIURESE AT THIS TIME. PT RESTED WELL T/O SHIFT. NO ACUTE CHANGES. WILL CONTINUE TO MONITOR AND PROVIDE CARE UNTIL SHIFT REPORT.
[2020-04-25 05:14] LABS: BASOPHILS ABSOLUTE AUTO 0.04 K/mm3 (0.00-0.23); BASOPHILS PERCENT AUTO 1 % (0-2); EOSINOPHILS ABSOLUTE AUTO 0.14 K/mm3 (0.00-0.68); EOSINOPHILS PERCENT AUTO 2 % (0-6); Hematocrit 33.4 % (33.0-51.0); Hemoglobin 10.1 g/dL (11.5-16.0); IMMATURE GRAN ABSOLUTE AUTO 0.04 K/mm3 (0.00-0.10); IMMATURE GRAN PERCENT AUTO 1 % (0-1); LYMPHOCYTES ABSOLUTE AUTO 1.74 K/mm3 (0.84-5.20); LYMPHOCYTES PERCENT AUTO 20 % (21-46); MONOCYTES ABSOLUTE AUTO 0.83 K/mm3 (0.16-1.47); MONOCYTES PERCENT AUTO 9 % (4-13); Mean Corpuscular HGB 27.6 pg (26.0-34.0); Mean Corpuscular HGB Conc 30.2 g/dL (31.5-36.5); Mean Corpuscular Volume 91 fL (80-100); Mean Platelet Volume 11.2 fL (9.1-12.4); NEUTROPHILS ABSOLUTE AUTO 6.03 K/mm3 (1.96-9.15); NEUTROPHILS PERCENT AUTO 68 % (41-73); Platelet Count 221 K/mm3 (150-400); RDW Coefficient Variation 14.8 % (11.7-14.2); Red Blood Cell Count 3.66 M/mm3 (3.80-5.20); White Blood Cell Count 8.82 K/mm3 (4.00-11.30)
[2020-04-25 05:34] LABS: Bun/Creatinine Ratio 19.2 (12.0-20.0); Creatinine, Blood 1.04 mg/dL (0.40-1.00); Potassium, Blood 3.3 mmol/L (3.5-5.5)
--- NOTE | 2020-04-25 11:42 | NUR ---
Patient is lying in bed and alert. Patient immediately shares about her emotional/mental struggles as she deals with doctor's reports, progressive disease and shame and guilt. Patient talks at length about the anxiety and fear and the emotioanl exhaustion. Patient states that she does not feel she gets the help she needs when the panic from air hunger sets in. Patient also discusses placement options and her inability to decide on issues. I listen empathically, reinforce helpful attitudes and practices, hear confession and provide anxiety containment, pastoral counselor at law and prayer. Patient states that she feels more at peace and that a weight has been lifted. I will continue to assist patient with coping skills and the spiritual aspect of dealing with major health issues and decisions.
--- NOTE | 2020-04-25 12:00 | NUR ---
Clinical Visit: Pt is alert, oriented. She is extremely anxious and short of breath. She is able to speak 5 words at a time before stopping to catch her breath during my assessment. She reports profound weakness and states that she "almost didn't make it back to bed" after using the bedside commode, with assistance from nursing. She states it was 2 steps and she struggled with it. When she got back in bed, she reports that it took "a long time" to recover her breathing. She states "I just cannot get enough air!" Discussed symptom of air hunger - she says this is her most disturbing symptom because then it causes her to have panic attacks. This gag writer observed anxiety and air hunger thoughout the entire visit. Encouraged frequent breaks in conversation to help the pt recover her breath: Pt uses open mouth breathing, clutches her chest. Encouraged deep breathing exercises, and this was only slightly helpful to her. She gasps for air frequently. Discussed goals and plan of care. She feels now that she is suffering. At home, she has been failing. She is so weak at home that she was unable to get out of bed. She is not able to cook her food, she used to use a cane to get around, however, she is not able to do this anymore. Her appetite is poor: when she does eat, her air hunger worsens and she has to stop eating. She has become incontinent recently and cannot change herself. She has not been able to make it to her doctor appointments because she cannot physically get there due to her weakness and fatigue. Any movement leaves her short of breath and gasping for air, per her reporting. She has disabling dyspnea at rest, even with her home O2. Comfort measures and hospice care are offered to her at this time, as her COPD appears to be at end stage. She reports, "I know I'm dying." Reviewed difficulties and worsening disease process and she is agreeable to comfort care and hospice services. She would like to be comfortable and her symptoms managed. Reviewed comfort medications with her. She is hopeful that these medications will assist with her air hunger and resulting panic attacks. She also is reporting severe anxiety with ruminating thoughts that will not go away. Call placed to hospitalist, Dr. Foss. She allows comfort measures to be placed at this time. Feliciano catheter and medications discussed. Allowed to review with pt what will be helpful in assisting with symptoms. Reviewed again with pt. She believes lasix to be helpful and would like the ease of a catheter. Risks such as infection are discussed and she is willing to have the benefit of the catheter and accepting of risks involved. Comfort medications are discussed in detail. Hospice philosophy is discussed; nurse visits, bath aid, and social science research assistant available - she believes this also to be helpful to her and expresses relief that she will be having help with bathing. She states that she hasn't even been able to brush her hair or do any sort of grooming for herself. Her fingernails are very long and they are bothering her, however, she is unable to do this task. Hospice Qualification: Pt has disabling dyspnea at rest with a bed to chair existance and decreased functional capacity. She reports weight loss related to air hunger and poor appetite. PPS 30% KPS 20% ADLs: pt needs assistance for bathing, toileting, dressing, ambulation, transfers. She is able to feed herself if food is brought to her. Albumin level 2.7 Code status reviewed. She is agreeable to DNR status and does not want to be resusitated. Will remain available.
--- NOTE | 2020-04-25 19:00 | NUR ---
SHIFT SUMMARY PT AWAKE AT START OF SHIFT, REPORTING THAT SHE SLEPT WELL AND DID LOOKED MUCH BETTER THIS AM. PT INCONTINENT OF URINE AT START OF SHIFT, BUT THEN ABLE TO GET UP TO BSC THRU OUT THE DAY. PT DOES GET SOB WITH EXERTION, MOSTLY FROM PANIC ATTACKS. CARE MANAGEMENT IN TO SEE PT THIS AM AND THEN DR GUEVARA. PT DECLINED TO GO TO SNF AND WAS GOING TO GO HOME WITH HER SON. PALLIATIVE CARE IN TO SEE PT AND DISCUSS PLAN OF CARE. PT DECIDING TO GO HOME ON HOSPICE. ARRANGEMENTS BEING MADE BY ECCLESIASTICAL WORKER. PT REQUESTING ATIVAN AND ROXANOL. REFUSED LASIX. MEDS GIVEN PER EMAR. REPORT GIVEN TO ONCOMING RN. CALL LT IN REACH.
--- NOTE | 2020-04-26 04:00 | NUR ---
SHIFT SUMMARY ASSUMED CARE OF PT AT 1900. PT IS A/OX4. TELE SHOWS SINUS @ 87. PT C/O SOB WITH EXCERTION, LUNG SOUNDS HAVE CRAKLES T/O, PT IS ON 3L BASELINE.PT C/O PAIN IN HER LEGS AND REQUESTED BOTH ATIVAN AND ROXINAL TOGETHER TO HELP WITH HER PAIN AND ANXIETY, PT HAS ASKED FOR MEDICATIONS ABOUT Q4-5 HRS. NO OTHER ACUTE EVENTS DURING THE NIGHT. PT SLEPT MOST OF THE NIGHT. CALL LIGHT IN REACH, BED IN LOWEST POSITION.
--- NOTE | 2020-04-26 15:44 | NUR ---
SHIFT SUMMARY PT IS A/O X 4 AND HAS A HX OF PAIN AND ANXIETY. SHE HAS SOB AT BASELINE AND HAS BEEN RECEIVING BREATHING TX FROM RT. SHE CONTIUES ON 3 LPM VIA NC WHICH IS HER BASELINE. SHE IS A STAND BY ASSIST TO THE BSC AND CALLS FOR HELP APPROPRIATELY. PLAN IS FOR HER TO DC HOME ON HOSPICE POSSIBLY ON TUESDAY. SHE IS ABLE TO MAKE HER NEEDS KNOWN AND IS RESTING IN BED.
--- NOTE | 2020-04-27 04:24 | NUR ---
SHIFT SUMMARY ASSUMED CARE OF PT AT 1900. PT IS A/OX4 BUT PT BECAME CONFUSED LAST NIGHT AND FORGOT WHERE SHE WAS. PT STATES THAT SOMETIMES SHE SLEEP TALKS /WALKS. PT C/O PAIN AND SOB, MEDICATED PER EMAR. TELE SHOWED SINUS TACH @ 102. LUNG SOUNDS HAVE WHEEING AND CRACKLES T/O. PT IS 1P ASSIST TO BSC. NO ACUTE EVENTS DURING THE NIGHT. PT SLEPT MOST OF THE NIGHT. CALL LIGHT IN REACH, BED IN LOWEST POSITION.
--- NOTE | 2020-04-27 16:15 | NUR ---
SHIFT SUMMARY PT IS A/O X 4 ALTHOUGH FORGETFUL AT TIMES. SHE HAS ONGOING ANXIETY. PER DR QUINN, PT IS NOW ON COMFORT CARE. PT HAS BEEN MEDICATED FOR HER PAIN. SHE HAS BEEN A X 1 ASSIST FOR TRASNFERS TO THE BSC. SHE CALLS FOR HELP WHEN NEEDED AND HAS HER CALL LIGHT IN REACH. PLAN IS FOR HER TO DC HOME ON HOSPICE TUESDAY.
--- NOTE | 2020-04-28 05:10 | NUR ---
SHIFT SUMMARY HAS BEEN RESTING QUIETLY WITH FEW INTERRUPTIONS THIS SHIFT. HAS RECEIVED BOTH ANALGESICS (ROXINAL) AND ATIVAN FOR PAIN AND ANXIETY, MEDS EFFECTIVE. RESTING QUIETLY AT THIS TIME. CALL LIGHT IN REACH. COMFORT CARE CONTINUES
[2020-04-28] MEDS ORDERED: POTA10T PO (10:36)
[2020-04-28] MEDS ORDERED: Ativan1 MG PO (10:37)
[2020-04-28] MEDS ORDERED: ONDA4 PO (10:38)
[2020-04-28] MEDS ORDERED: MORP20L SL (10:38)
--- NOTE | 2020-04-28 10:40 | NUR ---
Attempted to visit with Amtilda prior to her discharge home with hospice. She is currently finishing up in the shower.
--- NOTE | 2020-04-28 10:54 | NUR ---
PT DCD HOME ON HOSPICE. DON CUTLER SET UP EQUIPMENT DELIVERY AND COORDINATED WITH HOSPICE. MED REC WAS FAXED TO PHARMACY OF CHOICE. HARD RX SENT WITH THE PT. ALL QUESTIONS ANSWERED. PERSONAL BELONGINGS SENT WITH THE PT. [facility] TRANSPORTED HOME.
== END 2020-04-28 10:52 | disposition hospice, home (50) | DRG 291 ==
LOC: ER 10:44 → MEDS 10:45 → ER 10:45 → MEDS 10:45 → ENPENDDIS 04-28 10:05 → MEDS 04-28 10:52
PROVIDERS: Emergency Medicine; Nurse Practitioner Acute Care; Student in an Organized Health Care Education/Training Program; ADMIT Family Medicine
DX: I11.0 Hypertensive heart disease with heart failure (principal); J96.21 Acute and chronic respiratory failure with hypoxia; N17.9 Acute kidney failure, unspecified; F11.20 Opioid dependence, uncomplicated; C56.9 Malignant neoplasm of unspecified ovary; C78.02 Secondary malignant neoplasm of left lung; C78.01 Secondary malignant neoplasm of right lung; I50.43 Acute on chronic combined systolic (congestive) and diastolic (congestive) heart failure; I48.0 Paroxysmal atrial fibrillation; E87.6 Hypokalemia; D64.9 Anemia, unspecified; Z23 Encounter for immunization; F41.1 Generalized anxiety disorder; F41.0 Panic disorder [episodic paroxysmal anxiety]; J44.9 Chronic obstructive pulmonary disease, unspecified; G89.4 Chronic pain syndrome; Z51.5 Encounter for palliative care; I25.10 Atherosclerotic heart disease of native coronary artery without angina pectoris; K21.00 Gastro-esophageal reflux disease with esophagitis, without bleeding; Z66 Do not resuscitate; Z99.81 Dependence on supplemental oxygen; Z87.891 Personal history of nicotine dependence; Z79.02 Long term (current) use of antithrombotics/antiplatelets; Z79.82 Long term (current) use of aspirin; Z79.51 Long term (current) use of inhaled steroids; Z79.899 Other long term (current) drug therapy; Z91.14 Patient's other noncompliance with medication regimen; Z95.5 Presence of coronary angioplasty implant and graft; Z85.3 Personal history of malignant neoplasm of breast
CPT/HCPCS: 36415; 71045; 80048; 80053; 83735; 83880; 84145; 84443; 84484; 85025; 93005; 93010; 94640; 94760; 96372; 96374; 96375; 96376; 97162; 97166; 97530; 97535; 99285-25; A9270; A9270-GY; G0008; G0378; J1650; J1940; J2930; Q2038